=== PATIENT | male | born 1980 | race Hispanic/Latino ===

== ENCOUNTER 2020-11-13 07:49 | Inpatient (IN) | payer OTHER, SELFPAY ==
--- NOTE | 2020-11-13 09:59 | Event Note ---
ED Screening Note ED Screening Note: N/V CANT KEEP PO DOWN DARK STOOLS FEVER/CHILLS ABD LLQ TO L FLANK NO DYSURIA RECENT COUGH RX NONE PMH NONE PSH NONE CIG OCC ETOH NO DRUGS PCP NONE This initial assessment/diagnostic orders/clinical plan/treatment(s) is/are subject to change based on patients health status, clinical progression and re- assessment by fellow clinical providers in the ED. Further treatment and workup at subsequent clinical providers discretion. Patient/guardian urged not to elope from the ED as their condition may be serious if not clinically assessed and managed. Initial orders include: LABS UA
[2020-11-13 10:55] LABS: Basophils % (Auto) 0.1 % (0.0-1.8); Hematocrit 46.5 % (35.5-45.6); Hemoglobin 16.1 gm/dl (11.8-15.2); Lymphocytes # (Auto) 1.2 K/mm3 (1.2-5.4); Lymphocytes % (Auto) 8.1 % (13.4-35.0); Mean Corpuscular HGB Conc 35 % (32-34); Mean Corpuscular Volume 87 fl (84-94); Monocytes # (Auto) 1.3 K/mm3 (0.0-0.8); Monocytes % (Auto) 8.6 % (0.0-7.3); Platelet Count 345 K/mm3 (140-440); Red Blood Count 5.36 M/mm3 (3.65-5.03); Red Cell Distribution Width 14.1 % (13.2-15.2)
[2020-11-13 11:13] LABS: Alanine Aminotransferase 11 units/L (7-56); Albumin 4.4 g/dL (3.9-5); BUN/Creatinine Ratio 21; Blood Urea Nitrogen 17 mg/dL (9-20); Hemolysis Index 11
[2020-11-13] MEDS ORDERED: MORPHINE 4 MG/1 ML INJ IV ONE (12:02)
[2020-11-13] MEDS ORDERED: ONDANSETRON 4 MG/2 ML INJ IV ONE (12:02)
[2020-11-13] MEDS ORDERED: SODIUM CHLORIDE 0.9% 1000 ML 1,000 ML IV ONE (12:02)
--- NOTE | 2020-11-13 12:08 | Emergency Department Report ---
ED Abdominal Pain HPI - General Chief Complaint: Nausea/Vomiting/Diarrhea Stated Complaint: ABD PAINS VOMITING PUI?: No Time Seen by Provider: 11/13/20 09:58 Source: patient, RN notes reviewed Mode of arrival: Ambulatory Limitations: No Limitations - History of Present Illness Initial Comments: The patient was evaluated in the emergency department for symptoms described in the history of present illness. He/she was evaluated in the context of the global COVID-19 pandemic, which necessitated consideration that the patient mi ght be at risk for infection with the virus that causes COVID-19. Institutional protocols and algorithms that pertain to the evaluation of patients at risk for COVID-19 are in a state of rapid change based on information released by regulatory bodies including the CDC and federal and state organizations. These policies and algorithms were followed during the patient's care in the emergency department. Please note that these policies, procedures and recommendations changed on a rapid basis. During the history and physical examination, I am chaperoned by Mr. Paddy Freitas, range manager. The patient is a 40-year-old gentleman who is not known to myself previously, presenting to the ER today with a complaint of lower abdominal pain, that radiates up to the left upper quadrant. There is nausea vomiting and dark brown stool. No urinary symptoms or testicular pain. There is also right lower quadrant pain. No headache, neck pain, chest pain. He has never had symptoms like this before. No loss of taste or smell. Has not received Covid vaccination. Denies chronic medical conditions. States no history of abdominal surgeries. Pain today is sharp, throbbing and aching, increases with palpation, decreases with rest. MD Complaint: abdominal pain -: Gradual, hour(s) Location: LLQ, RLQ Radiation: LUQ Severity scale (0 -10): 8 Quality: cramping, aching Consistency: constant Improves With: medication, rest Worsens With: movement Associated Symptoms: nausea, vomiting, chills - Related Data Allergies Allergy/AdvReac Type Severity Reaction Status Date / Time No Known Allergies Allergy Unverified 11/13/20 08:22 ED Review of Systems ROS: Stated complaint: ABD PAINS VOMITING Other details as noted in HPI Constitutional: chills, fever, malaise, weakness Eyes: denies: eye discharge ENT: denies: epistaxis Respiratory: denies: cough Cardiovascular: denies: chest pain Gastrointestinal: abdominal pain, nausea, vomiting. denies: hematemesis, melena, hematochezia Genitourinary: denies: urgency, dysuria, testicular pain Musculoskeletal: denies: back pain Neurological: weakness Hematological/Lymphatic: denies: easy bleeding ED Past Medical Hx - Past Medical History Previous Medical History?: No - Surgical History Past Surgical History?: No ED Physical Exam - General Limitations: No Limitations General appearance: alert, in no apparent distress - Head Head exam: Present: atraumatic, normocephalic - Eye Eye exam: Present: normal appearance, EOMI. Absent: nystagmus - ENT ENT exam: Present: normal exam, normal orophraynx, mucous membranes moist, normal external ear exam - Neck Neck exam: Present: normal inspection, full ROM. Absent: tenderness, meningismus - Respiratory Respiratory exam: Present: normal lung sounds bilaterally. Absent: respiratory distress, wheezes, rales, rhonchi, stridor - Cardiovascular Cardiovascular Exam: Present: regular rate, normal rhythm, normal heart sounds. Absent: bradycardia, tachycardia, irregular rhythm, systolic murmur, diastolic murmur, rubs, gallop - GI/Abdominal GI/Abdominal exam: Present: soft, tenderness, guarding. Absent: distended, rebound, rigid, pulsatile mass - Rectal Rectal exam: Present: normal inspection, heme (-) stool. Absent: black stool, bloody stool - exam: Present: normal inspection, other (There is normal testicular lie. There is normal cremasteric reflex. There is no testicular tenderness. There is no testicular swelling). Absent: testicular tenderness External exam: Present: normal external exam. Absent: erythema, swelling - Extremities Exam Extremities exam: Present: normal inspection, full ROM, other (2+ pulses noted in the bilateral upper and lower extremities. There is no palpable cord. negative Homans sign. Muscular compartments are soft. The pelvis is stable.). Absent: tenderness, pedal edema, joint swelling, calf tenderness - Back Exam Back exam: Present: normal inspection, full ROM. Absent: tenderness, CVA tenderness (R), CVA tenderness (L), paraspinal tenderness, vertebral tenderness - Neurological Exam Neurological exam: Present: alert, oriented X3, normal gait, other (No facial dr oop. Tongue midline. Extraocular movements intact bilaterally. Facial sensation intact to light touch in V1, V2, V3 distribution bilaterally. 5 and a 5 strength in 4 extremities. Sensation intact to light touch in 4 extremities.). Absent: motor sensory deficit - Psychiatric Psychiatric exam: Present: anxious - Skin Skin exam: Present: warm, dry, intact, normal color. Absent: rash ED Course Vital Signs 11/13/20 11/13/20 11/13/20 08:23 12:08 12:15 Temperature 98.6 F Pulse Rate 91 H 85 80 Respiratory 18 19 19 Rate Blood Pressure 122/72 Blood Pressure 116/88 [Right] O2 Sat by Pulse 97 99 95 Oximetry 11/13/20 11/13/20 11/13/20 12:31 12:47 13:01 Temperature Pulse Rate 88 90 76 Respiratory 17 18 19 Rate Blood Pressure 121/78 127/73 115/70 Blood Pressure [Right] O2 Sat by Pulse 97 96 96 Oximetry 11/13/20 13:15 Temperature Pulse Rate 73 Respiratory 15 Rate Blood Pressure 109/48 Blood Pressure [Right] O2 Sat by Pulse 97 Oximetry - Reevaluation(s) Reevaluation #1: 11/13/20 12:07 Differential diagnosis, including but not limited to: Appendicitis, colitis, diverticulitis, renal colic, obstruction, perforated viscus Assessment and plan: 40-year-old gentleman, with diffuse abdominal pain, tenderness, nausea, vomiting, normal testicular exam, no blood on rectal examination, leukocytosis, who is hemoconcentrated. Concerning for intra- abdominal pathology. Urinalysis and EKG pending. CT scan abdomen pelvis ordered. EKG ordered. We will treat the patient's pain and nausea. Reassess after diagnostic imaging. Patient is in agreement with plan of care. Reevaluation #2: 11/13/20 13:40 Patient feels improved. Declines additional pain medication at this time. CT scan abdomen pelvis suggest small bowel obstruction, and probable colonic cancer. Contacted gastroenterology on-call, Dr. Anne. Discussed patient's history, physical, laboratory studies and imaging studies. His group is amenable to following consultation. We have placed a page out to general surgery. Reassess after discussion with surgery. 11/13/20 14:21 Discussed patient's history, physical, laboratory studies and imaging studies with general surgeon on-call, Dr. Ahmadi Her group will follow in consultation. Recommends nasogastric tube. I then had extensive discussion with the patient at the bedside. I discussed the significance of his CT scan findings, as well as recommended treatment and plan of care, including recommendation for nasogastric tube insertion. Patient is agreeable to this plan of care. He requested I discussed the details of his care with his fiance. He gave full permission to have the details of all of his medical care disclosed and discussed with his fiance. Hospital physician, Dr. Gary Alvarenga to admit to [facility] ED Medical Decision Making - Lab Data Result diagrams: 11/13/20 10:24 11/13/20 10:24 Vital Signs 11/13/20 08:23 Temperature 98.6 F Pulse Rate 91 H Respiratory 18 Rate Blood Pressure 116/88 [Right] O2 Sat by Pulse 97 Oximetry Lab Results 11/13/20 11/13/20 Range/Units 10:24 10:24 WBC 14.6 H (4.5-11.0) K/mm3 RBC 5.36 H (3.65-5.03) M/mm3 Hgb 16.1 H (11.8-15.2) gm/dl Hct 46.5 H (35.5-45.6) % MCV 87 (84-94) fl MCH 30 (28-32) pg MCHC 35 H (32-34) % RDW 14.1 (13.2-15.2) % Plt Count 345 (140-440) K/mm3 Lymph % (Auto) 8.1 L (13.4-35.0) % [place] % (Auto) 8.6 H (0.0-7.3) % Eos % (Auto) 0.0 (0.0-4.3) % Baso % (Auto) 0.1 (0.0-1.8) % Lymph # (Auto) 1.2 (1.2-5.4) K/mm3 [place] # (Auto) 1.3 H (0.0-0.8) K/mm3 Eos # (Auto) 0.0 (0.0-0.4) K/mm3 Baso # (Auto) 0.0 (0.0-0.1) K/mm3 Seg Neutrophils % 83.2 H (40.0-70.0) % Seg Neutrophils # 12.2 H (1.8-7.7) K/mm3 Sodium 136 L (137-145) mmol/L Potassium 4.1 (3.6-5.0) mmol/L Chloride 98.6 (98-107) mmol/L Carbon Dioxide 23 (22-30) mmol/L Anion Gap 19 mmol/L BUN 17 (9-20) mg/dL Creatinine 0.8 (0.8-1.3) mg/dL Estimated GFR > 60 ml/min BUN/Creatinine Ratio 21 % Glucose 113 H (75-100) mg/dL Calcium 9.0 (8.4-10.2) mg/dL Total Bilirubin 0.40 (0.1-1.2) mg/dL AST 14 (5-40) units/L ALT 11 (7-56) units/L Alkaline Phosphatase 74 (35-129) units/L Total Protein 8.4 H (6.3-8.2) g/dL Albumin 4.4 (3.9-5) g/dL Albumin/Globulin Ratio 1.1 % Lipase 19 (13-60) units/L - EKG Data -: EKG Interpreted by Ok EKG shows normal: sinus rhythm Rate: normal - EKG Data When compared to previous EKG there are: previous EKG unavailable 11/13/20 12:23 EKG interpreted at 12: 18 Sinus rhythm, 78 bpm. Normal axis, normal intervals. Minimal motion artifact. This EKG is not a STEMI. There is no prior for comparison. - Radiology Data Radiology results: pending, report reviewed, image reviewed CT ABDOMEN AND PELVIS WITH CONTRAST HISTORY: MAIN. Acute lower abdominal pain with nausea and vomiting COMPARISON: None. TECHNIQUE: CT images of the abdomen and pelvis were obtained following administration of intravenous contrast. All CT scans at this location are performed using CT dose reduction for ALARA by means of automated exposure control. CONTRAST: 100 ml of intravenous contrast administered. FINDINGS: Lungs/bones: Lung bases are clear. There are degenerative changes in the spine and pelvis with no acute osseous abnormality identified. Abdomen/pelvis: The liver, gallbladder, spleen, pancreas, adrenals, kidneys, and proximal GI tract appear unremarkable. Urinary bladder and prostate are normal. No pelvic free fluid. There is a large mass in the region of the splenic flexure of the colon which measures at least approximately 7 cm in length and at least 5 cm in maximal transverse dimension. There are several surrounding enlarged regional lymph nodes as well. The upstream colon is dilated and fluid-filled as is the distal small bowel and this is likely causing an obstructive effect. IMPRESSION: 1. Large mass in the colon near the level of the splenic flexure highly worrisome for colorectal carcinoma, with surrounding mesenteric lymph nodes worrisome for metastatic disease. There is also a mild obstructive effect on the upstream colon and distal small bowel. Signer Name: Arsenio Mosquera MD Signed: 11/13/2020 12:06 PM Workstation Name: [id number] Critical Care Time: Yes Critical care time in (mins) excluding proc time.: 35 Critical care attestation.: If time is entered above; I have spent that time in minutes in the direct care of this critically ill patient, excluding procedure time. ED Disposition Clinical Impression: Acute abdominal pain, Nausea and vomiting, Small bowel obstruction, Colonic mass Disposition: OP ADMIT IP TO THIS HOSP Is pt being admited?: Yes Does the pt Need Aspirin: No Condition: Serious Referrals: PRIMARY CARE, [Primary Care Provider] - 3-5 Days
[2020-11-13 13:07] LABS: Bilirubin,Urine NEG (Negative); Blood,Urine NEG (Negative); Color,Urine Yellow (Yellow); Mucus,Urine 2+ /HPF; Protein,Urine <15 mg/dL mg/dL (Negative); Urobilinogen,Urine < 2.0 mg/dL (<2.0)
--- NOTE | 2020-11-13 13:10 | Cat Scan Report ---
CT ABDOMEN AND PELVIS WITH CONTRAST HISTORY: MAIN. Acute lower abdominal pain with nausea and vomiting COMPARISON: None. TECHNIQUE: CT images of the abdomen and pelvis were obtained following administration of intravenous contrast. All CT scans at this location are performed using CT dose reduction for ALARA by means of automated exposure control. CONTRAST: 100 ml of intravenous contrast administered. FINDINGS: Lungs/bones: Lung bases are clear. There are degenerative changes in the spine and pelvis with no ac [place] osseous abnormality identified. Abdomen/pelvis: The liver, gallbladder, spleen, pancreas, adrenals, kidneys, and proximal GI tract a ppear unremarkable. Urinary bladder and prostate are normal. No pelvic free fluid. There is a large mass in the region of the splenic flexure of the colon which measures at least appro ximately 7 cm in length and at least 5 cm in maximal transverse dimension. There are several surround ing enlarged regional lymph nodes as well. The upstream colon is dilated and fluid-filled as is the d istal small bowel and this is likely causing an obstructive effect. IMPRESSION: 1. Large mass in the colon near the level of the splenic flexure highly worrisome for colorectal carc inoma, with surrounding mesenteric lymph nodes worrisome for metastatic disease. There is also a mild obstructive effect on the upstream colon and distal small bowel. Signer Name: Arsenio Mosquera MD Signed: 11/13/2020 1:06 PM Workstation Name: [id number]
[2020-11-13] MEDS ORDERED: HYDROmorphone 1 MG/1 ML INJ IV ONE ×2 (14:04→15:32)
[2020-11-13] MEDS ORDERED: LIDOCAINE VISCOUS 2% 15 ML ORAL LIQD MM STA (14:19)
[2020-11-13] MEDS ORDERED: LIDOCAINE VISCOUS 2% 15 ML ORAL LIQD PO ONE (16:17)
--- NOTE | 2020-11-13 17:27 | Event Note ---
Date: 11/13/[address] Clifford for consult. Discussed case with Dr. Clifford, labs and imaging reviewed. VSS. Patient with splenic flexure mass worrisome for colon cancer with partial bowel obstruction. 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 Patient admitted to hospitalist group with consultation to GI. 1. Pt will need to remain NPO on IVF. 2. Patient will need NGT if starts to vomit. Per Rn notes he was unable to tolerate NGT insertion and is not vomiting. 3. obtain CEA 4. Repeat labs in am 5. DVT/GI ppx 6. prn and nausea control 7. CXR to r/o lung mets 8. GI consulted Full consult to follow in am
[2020-11-13] MEDS ORDERED: ONDANSETRON 4 MG/2 ML INJ ONE (18:39)
[2020-11-13] MEDS ORDERED: ONDANSETRON 4 MG/2 ML INJ IV PRN ×2 (18:40→22:44)
--- NOTE | 2020-11-13 18:40 | XRay Report ---
CHEST 1 VIEW INDICATION: colon mass, r/o mets. COMPARISON: None. FINDINGS: Support devices: None. Heart: Normal. Lungs/Pleura: No acute pulmonary or pleural findings. IMPRESSION: 1. No acute findings. Signer Name: Terrell Shah MD Signed: 11/13/2020 6:35 PM Workstation Name: [id number]
[2020-11-13] MEDS: MORPHINE 2 MG/1 ML INJ IV PRN (18:47)
[2020-11-13] MEDS: HYDROmorphone 1 MG/1 ML INJ IV PRN (19:43)
--- NOTE | 2020-11-13 22:37 | History and Physical Report ---
History of Present Illness Date of examination: 11/13/20 Date of admission: 11/13/20 19:20 Chief complaint: Lower abdominal pain for 3 to 4 days History of present illness: 40-year-old -[place] male with no significant past medical history comes in for lower abdominal pain radiating to the left upper quadrant. Pain is intermittent in nature. Colicky pain. Associated with nausea and vomiting. No vomiting since morning. Patient never had colonoscopy. No family history of colon cancer. Oral intake is an exacerbating factor. No fever or chills. No exposure to coronavirus. - Past Medical History Previous Medical History?: No - Surgical History Past Surgical History?: No --Family history Htn --Social history half a pack smoker Review of Systems ROS: Stated complaint: ABD PAINS VOMITING Other details as noted in HPI Constitutional: chills, fever, malaise, weakness Eyes: denies: eye discharge ENT: denies: epistaxis Respiratory: denies: cough Cardiovascular: denies: chest pain Gastrointestinal: abdominal pain, nausea, vomiting. denies: hematemesis, melena, hematochezia Genitourinary: denies: urgency, dysuria, testicular pain Musculoskeletal: denies: back pain Neurological: weakness Hematological/Lymphatic: denies: easy bleeding Medications and Allergies Allergies Allergy/AdvReac Type Severity Reaction Status Date / Time No Known Allergies Allergy Unverified 11/13/20 08:22 Active Meds: Active Medications Hydromorphone HCl (Hydromorphone 1 Mg/1 Ml Inj) 0.5 mg IV Q3H PRN PRN Reason: Pain , Severe (7-10) Morphine Sulfate (Morphine 2 Mg/1 Ml Inj) 2 mg IV Q4H PRN PRN Reason: Pain, Moderate (4-6) Last Admin: 11/13/20 18:47 Dose: 2 mg Documented by: Ondansetron HCl (Ondansetron 4 Mg/2 Ml Inj) 4 mg IV ONCE PRN PRN Reason: Nausea And Vomiting Stop: 11/20/20 18:39 Last Admin: 11/13/20 18:47 Dose: 4 mg Documented by: Exam - Constitutional Vitals: Temp Pulse Resp BP Pulse Ox 99.9 F H 88 18 116/63 92 11/13/20 21:26 11/13/20 21:26 11/13/20 21:26 11/13/20 21:26 11/13/20 21:26 General appearance: Present: no acute distress, well-nourished - EENT Eyes: Present: PERRL ENT: hearing intact, clear oral mucosa - Neck Neck: Present: supple, normal ROM - Respiratory Respiratory effort: normal Respiratory: bilateral: CTA - Cardiovascular Heart rate: 78 Rhythm: regular Heart Sounds: Present: S1 & S2. Absent: rub, click - Extremities Extremities: pulses symmetrical, No edema Peripheral Pulses: within normal limits - Abdominal General gastrointestinal: Present: soft, tender, non-distended, normal bowel sounds Localized gastrointestinal: tender: suprapubic, midline, guarding: suprapubic, midline Male genitourinary: Present: normal - Rectal Rectal Exam: stool brown - Integumentary Integumentary: Present: clear, warm, dry - Musculoskeletal Musculoskeletal: gait normal, strength equal bilaterally - Psychiatric Psychiatric: appropriate mood/affect, intact judgment & insight - Neurologic Neurologic: CNII-XII intact, moves all extremities - Allied Health Allied health notes reviewed: nursing, case management Results - Labs CBC & Chem 7: 11/13/20 10:24 11/13/20 10:24 Labs: Laboratory Last Values WBC 14.6 K/mm3 (4.5-11.0) H 11/13/20 10:24 RBC 5.36 M/mm3 (3.65-5.03) H 11/13/20 10:24 Hgb 16.1 gm/dl (11.8-15.2) H 11/13/20 10:24 Hct 46.5 % (35.5-45.6) H 11/13/20 10:24 MCV 87 fl (84-94) 11/13/20 10:24 MCH 30 pg (28-32) 11/13/20 10:24 MCHC 35 % (32-34) H 11/13/20 10:24 RDW 14.1 % (13.2-15.2) 11/13/20 10:24 Plt Count 345 K/mm3 (140-440) 11/13/20 10:24 Lymph % (Auto) 8.1 % (13.4-35.0) L 11/13/20 10:24 [place] % (Auto) 8.6 % (0.0-7.3) H 11/13/20 10:24 Eos % (Auto) 0.0 % (0.0-4.3) 11/13/20 10:24 Baso % (Auto) 0.1 % (0.0-1.8) 11/13/20 10:24 Lymph # (Auto) 1.2 K/mm3 (1.2-5.4) 11/13/20 10:24 [place] # (Auto) 1.3 K/mm3 (0.0-0.8) H 11/13/20 10:24 Eos # (Auto) 0.0 K/mm3 (0.0-0.4) 11/13/20 10:24 Baso # (Auto) 0.0 K/mm3 (0.0-0.1) 11/13/20 10:24 Seg Neutrophils % 83.2 % (40.0-70.0) H 11/13/20 10:24 Seg Neutrophils # 12.2 K/mm3 (1.8-7.7) H 11/13/20 10:24 Sodium 136 mmol/L (137-145) L 11/13/20 10:24 Potassium 4.1 mmol/L (3.6-5.0) 11/13/20 10:24 Chloride 98.6 mmol/L (98-107) 11/13/20 10:24 Carbon Dioxide 23 mmol/L (22-30) 11/13/20 10:24 Anion Gap 19 mmol/L 11/13/20 10:24 BUN 17 mg/dL (9-20) 11/13/20 10:24 Creatinine 0.8 mg/dL (0.8-1.3) 11/13/20 10:24 Estimated GFR > 60 ml/min 11/13/20 10:24 BUN/Creatinine Ratio 21 % 11/13/20 10:24 Glucose 113 mg/dL (75-100) H 11/13/20 10:24 Calcium 9.0 mg/dL (8.4-10.2) 11/13/20 10:24 Magnesium 2.30 mg/dL (1.7-2.3) 11/13/20 15:45 Total Bilirubin 0.40 mg/dL (0.1-1.2) 11/13/20 10:24 AST 14 units/L (5-40) 11/13/20 10:24 ALT 11 units/L (7-56) 11/13/20 10:24 Alkaline Phosphatase 74 units/L (35-129) 11/13/20 10:24 Total Creatine Kinase 60 units/L (55-170) 11/13/20 15:45 Total Protein 8.4 g/dL (6.3-8.2) H 11/13/20 10:24 Albumin 4.4 g/dL (3.9-5) 11/13/20 10:24 Albumin/Globulin Ratio 1.1 % 11/13/20 10:24 Lipase 19 units/L (13-60) 11/13/20 10:24 Urine Color Yellow (Yellow) 11/13/20 12:57 Urine Turbidity Clear (Clear) 11/13/20 12:57 Urine pH 5.0 (5.0-7.0) 11/13/20 12:57 Ur Specific [place] 1.041 (1.003-1.030) H 11/13/20 12:57 Urine Protein <15 mg/dl mg/dL (Negative) 11/13/20 12:57 Urine Glucose (UA) Neg mg/dL (Negative) 11/13/20 12:57 Urine Ketones Tr mg/dL (Negative) 11/13/20 12:57 Urine Blood Neg (Negative) 11/13/20 12:57 Urine Nitrite Neg (Negative) 11/13/20 12:57 Urine Bilirubin Neg (Negative) 11/13/20 12:57 Urine Urobilinogen < 2.0 mg/dL (<2.0) 11/13/20 12:57 Ur Leukocyte Esterase Neg (Negative) 11/13/20 12:57 Urine WBC (Auto) 1.0 /HPF (0.0-6.0) 11/13/20 12:57 Urine RBC (Auto) 2.0 /HPF (0.0-6.0) 11/13/20 12:57 U Epithel Cells (Auto) < 1.0 /HPF (0-13.0) 11/13/20 12:57 Urine Mucus 2+ /HPF 11/13/20 12:57 - Imaging and Cardiology CT scan - abdomen: report reviewed Imaging and Cardiology: abdominal CAT scan There is a large mass in the renal splenic flexure of the colon which measures at least approximately 7 cm in length and at least 5 cm in maximal transverse dimension. There are several surrounding enlarged regional lymph nodes as well. The upstream colon is dilated and fluid-filled as is the distal small bowel and this is likely causing an obstructive defect. Large mass in the colon near the level of splenic fissure highly worrisome for colorectal carcinoma with surrounding mesenteric lymph nodes worrisome for metastatic disease. There is also a mild obstructive defect in the upstream colon and distal small bowel. June/IV: Voiding Method Urinal Assessment and Plan Advance Directives: Yes VTE prophylaxis?: Chemical Plan of care discussed with patient/family: Yes - Patient Problems (1) Small bowel obstruction Current Visit: Yes Status: Acute Plan to address problem: NG tube for now. Patient is refusing Patient is not actively vomiting (2) Colonic mass Current Visit: Yes Status: Acute Plan to address problem: Newly diagnosed colon mass in the splenic flexure with spread to lymph nodes Needs urgent colonoscopy and biopsies. May need colectomy and end-to-end anastomosis because of the obstructive symptoms Surgery and GI consulted (3) Volume depletion Current Visit: Yes Status: Acute Plan to address problem: IV fluids for now (4) Polycythemia due to fall in plasma volume Current Visit: Yes Status: Acute Plan to address problem: IV fluids for now (5) Hyponatremia Current Visit: Yes Status: Acute Plan to address problem: Mild IV normal saline for now (6) DVT prophylaxis Current Visit: Yes Status: Acute Plan to address problem: On heparin and GI prophylaxis
[2020-11-13] MEDS ORDERED: ACETAMINOPHEN 325 MG TAB PO PRN (22:44)
[2020-11-13] MEDS: D5W/0.9% NACL 1,000 ML IV SCH (23:10)
[2020-11-13] MEDS: FAMOTIDINE 20 MG/2 ML INJ IV SCH (23:10)
[2020-11-14 05:23] LABS: Basophils % (Auto) 0.4 % (0.0-1.8); Eosinophils # (Auto) 0.1 K/mm3 (0.0-0.4); Eosinophils % (Auto) 1.1 % (0.0-4.3); Hematocrit 39.9 % (35.5-45.6); Hemoglobin 13.8 gm/dl (11.8-15.2); Lymphocytes # (Auto) 1.6 K/mm3 (1.2-5.4); Mean Corpuscular HGB Conc 35 % (32-34); Mean Corpuscular Volume 87 fl (84-94); Monocytes # (Auto) 0.8 K/mm3 (0.0-0.8); Monocytes % (Auto) 12.1 % (0.0-7.3); Platelet Count 233 K/mm3 (140-440); Red Blood Count 4.57 M/mm3 (3.65-5.03)
[2020-11-14 05:46] LABS: BUN/Creatinine Ratio 19; Blood Urea Nitrogen 15 mg/dL (9-20); Calcium 7.9 mg/dL (8.4-10.2); Hemolysis Index 3
[2020-11-14] MEDS: D5W/0.9% NACL 1,000 ML IV SCH ×2 (07:47→17:31)
[2020-11-14] MEDS: FAMOTIDINE 20 MG/2 ML INJ IV SCH ×2 (07:47→22:00)
--- NOTE | 2020-11-14 09:48 | Progress Note ---
Assessment and Plan Assessment and plan: #Partial SBO N.p.o. for now Continue IV hydration Surgery evaluation #Colonic mass CT abdomen shows mass around the splenic flexure with some lymph node spread Denies any family history of colon cancer Surgery following GI consulted Plan for colonoscopy per surgery and GI CEA sent #Polycythemia Due to fall in plasma volume IV hydration #Hyponatremia IV normal saline for now #DVT prophylaxis-Heparin History Interval history: 11/14. Patient seen and examined at bedside this morning. Still has some abdominal pain. No vomiting overnight. He is passing flatus. Surgery following. Hospitalist Physical - Physical exam Narrative exam: VITAL SIGNS: Reviewed. GENERAL: Awake HEAD: No signs of head trauma. EYES: Pupils are equal. Extraocular motions intact. MOUTH: Oropharynx is normal. NECK: No adenopathy, no JVD. CHEST: Chest with diminished breath sounds bilaterally. No wheezes, rales, or rhonchi. CARDIAC: normal S1 and S2, without murmurs, gallops, or rubs. ABDOMEN: Soft, slight discomfort around the umbilical area MUSCULOSKELETAL: No edema NEUROLOGIC EXAM: Alert and oriented x3. No focal neurologic deficits SKIN: No obvious lesions - Constitutional Vitals: Temp Pulse Resp BP Pulse Ox 98.6 F 71 18 126/61 93 11/14/20 07:27 11/14/20 07:27 11/14/20 07:27 11/14/20 07:27 11/14/20 07:27 Results - Labs CBC & Chem 7: 11/14/20 04:45 11/14/20 04:45 Labs: Laboratory Last Values WBC 6.5 K/mm3 (4.5-11.0) 11/14/20 04:45 RBC 4.57 M/mm3 (3.65-5.03) 11/14/20 04:45 Hgb 13.8 gm/dl (11.8-15.2) 11/14/20 04:45 Hct 39.9 % (35.5-45.6) D 11/14/20 04:45 MCV 87 fl (84-94) 11/14/20 04:45 MCH 30 pg (28-32) 11/14/20 04:45 MCHC 35 % (32-34) H 11/14/20 04:45 RDW 14.0 % (13.2-15.2) 11/14/20 04:45 Plt Count 233 K/mm3 (140-440) 11/14/20 04:45 Lymph % (Auto) 24.0 % (13.4-35.0) 11/14/20 04:45 [place] % (Auto) 12.1 % (0.0-7.3) H 11/14/20 04:45 Eos % (Auto) 1.1 % (0.0-4.3) 11/14/20 04:45 Baso % (Auto) 0.4 % (0.0-1.8) 11/14/20 04:45 Lymph # (Auto) 1.6 K/mm3 (1.2-5.4) 11/14/20 04:45 [place] # (Auto) 0.8 K/mm3 (0.0-0.8) 11/14/20 04:45 Eos # (Auto) 0.1 K/mm3 (0.0-0.4) 11/14/20 04:45 Baso # (Auto) 0.0 K/mm3 (0.0-0.1) 11/14/20 04:45 Seg Neutrophils % 62.4 % (40.0-70.0) 11/14/20 04:45 Seg Neutrophils # 4.0 K/mm3 (1.8-7.7) 11/14/20 04:45 Sodium 138 mmol/L (137-145) 11/14/20 04:45 Potassium 3.6 mmol/L (3.6-5.0) 11/14/20 04:45 Chloride 103.0 mmol/L (98-107) 11/14/20 04:45 Carbon Dioxide 26 mmol/L (22-30) 11/14/20 04:45 Anion Gap 13 mmol/L 11/14/20 04:45 BUN 15 mg/dL (9-20) 11/14/20 04:45 Creatinine 0.8 mg/dL (0.8-1.3) 11/14/20 04:45 Estimated GFR > 60 ml/min 11/14/20 04:45 BUN/Creatinine Ratio 19 % 11/14/20 04:45 Glucose 98 mg/dL (75-100) 11/14/20 04:45 Hemoglobin A1c 5.1 % (4-6) 11/14/20 04:45 Calcium 7.9 mg/dL (8.4-10.2) L 11/14/20 04:45 Magnesium 2.30 mg/dL (1.7-2.3) 11/13/20 15:45 Total Bilirubin 0.40 mg/dL (0.1-1.2) 11/13/20 10:24 AST 14 units/L (5-40) 11/13/20 10:24 ALT 11 units/L (7-56) 11/13/20 10:24 Alkaline Phosphatase 74 units/L (35-129) 11/13/20 10:24 Total Creatine Kinase 60 units/L (55-170) 11/13/20 15:45 Total Protein 8.4 g/dL (6.3-8.2) H 11/13/20 10:24 Albumin 4.4 g/dL (3.9-5) 11/13/20 10:24 Albumin/Globulin Ratio 1.1 % 11/13/20 10:24 Lipase 19 units/L (13-60) 11/13/20 10:24 Urine Color Yellow (Yellow) 11/13/20 12:57 Urine Turbidity Clear (Clear) 11/13/20 12:57 Urine pH 5.0 (5.0-7.0) 11/13/20 12:57 Ur Specific [place] 1.041 (1.003-1.030) H 11/13/20 12:57 Urine Protein <15 mg/dl mg/dL (Negative) 11/13/20 12:57 Urine Glucose (UA) Neg mg/dL (Negative) 11/13/20 12:57 Urine Ketones Tr mg/dL (Negative) 11/13/20 12:57 Urine Blood Neg (Negative) 11/13/20 12:57 Urine Nitrite Neg (Negative) 11/13/20 12:57 Urine Bilirubin Neg (Negative) 11/13/20 12:57 Urine Urobilinogen < 2.0 mg/dL (<2.0) 11/13/20 12:57 Ur Leukocyte Esterase Neg (Negative) 11/13/20 12:57 Urine WBC (Auto) 1.0 /HPF (0.0-6.0) 11/13/20 12:57 Urine RBC (Auto) 2.0 /HPF (0.0-6.0) 11/13/20 12:57 U Epithel Cells (Auto) < 1.0 /HPF (0-13.0) 11/13/20 12:57 Urine Mucus 2+ /HPF 11/13/20 12:57 June/IV: Voiding Method Urinal Active Medications - Current Medications Current Medications: Generic Name Dose Route Start Last Admin Trade Name Freq PRN Reason Stop Dose Admin Acetaminophen 650 mg 11/13/20 22:44 Acetaminophen 325 Mg Tab PO Q4H PRN Pain MILD(1-3)/Fever >100.5/[place] Enoxaparin Sodium 40 mg 11/14/20 22:00 Enoxaparin 40 Mg/0.4 Ml Inj SUB-Q QDAY@2200 ION Protocol Famotidine 20 mg 11/13/20 23:00 11/14/20 07:47 Famotidine 20 Mg/2 Ml Inj IV 20 mg BID ION Administration Hydromorphone HCl 0.5 mg 11/13/20 19:26 11/13/20 19:43 Hydromorphone 1 Mg/1 Ml Inj IV 0.5 mg Q3H PRN Administration Pain , Severe (7-10) Dextrose/Sodium Chloride 1,000 mls @ 100 mls/hr 11/13/20 23:00 11/14/20 07:47 D5ns IV 100 mls/hr DIRECT ION Administration Morphine Sulfate 2 mg 11/13/20 18:38 11/13/20 18:47 Morphine 2 Mg/1 Ml Inj IV 2 mg Q4H PRN Administration Pain, Moderate (4-6) Ondansetron HCl 4 mg 11/13/20 22:44 Ondansetron 4 Mg/2 Ml Inj IV Q8H PRN Nausea And Vomiting Sodium Chloride 10 ml 11/14/20 08:00 11/14/20 07:53 Sodium Chloride 0.9% 10 Ml Flush Syringe IV 10 ml BID ION Administration Sodium Chloride 10 ml 11/13/20 22:44 11/13/20 23:10 Sodium Chloride 0.9% 10 Ml Flush Syringe IV 10 ml PRN PRN Administration LINE FLUSH
--- NOTE | 2020-11-14 12:48 | Gastroenterology Consultation ---
History of Present Illness - Reason for Consult Consult date: 11/14/20 colon mass Requesting physician: VALERIE MAGAÑA - History of Present Illness The patient is a 40 yo male with no significant medical history who presents with recent onset abd pain, n/v, and bowel habit changes. Pt reports initially having constipation 4 days ago. He tried a laxative with minimal response. He attempted to eat 3 days ago but developed n/v episodes and was unable to tolerate further po intake. Abd pain primarily in left side of abdomen. Pt had CT scan in ED which showed a large colon mass at the splenic flexure causing partial obstruction. He reports ~20 lb weight loss in the past year which he attributes to dietary changes. Denies similar gi symptoms in the past. Denies gi bleeding. + fevers/chills in the past week. No known family h/o colon cancer. Past History Past Medical History: No medical history Past Surgical History: No surgical history Social history: no significant social history Medications and Allergies Allergies Allergy/AdvReac Type Severity Reaction Status Date / Time No Known Allergies Allergy Unverified 11/13/20 08:22 Active Meds: Active Medications Acetaminophen (Acetaminophen 325 Mg Tab) 650 mg PO Q4H PRN PRN Reason: Pain MILD(1-3)/Fever >100.5/[place] Last Admin: 11/14/20 11:48 Dose: 650 mg Documented by: Enoxaparin Sodium (Enoxaparin 40 Mg/0.4 Ml Inj) 40 mg SUB-Q QDAY@2200 ION; Protocol Famotidine (Famotidine 20 Mg/2 Ml Inj) 20 mg IV BID [facility] Last Admin: 11/14/20 07:47 Dose: 20 mg Documented by: Hydromorphone HCl (Hydromorphone 1 Mg/1 Ml Inj) 0.5 mg IV Q3H PRN PRN Reason: Pain , Severe (7-10) Last Admin: 11/13/20 19:43 Dose: 0.5 mg Documented by: Dextrose/Sodium Chloride (D5ns) 1,000 mls @ 100 mls/hr IV DIRECT ION Last Admin: 11/14/20 07:47 Dose: 100 mls/hr Documented by: Morphine Sulfate (Morphine 2 Mg/1 Ml Inj) 2 mg IV Q4H PRN PRN Reason: Pain, Moderate (4-6) Last Admin: 11/13/20 18:47 Dose: 2 mg Documented by: Ondansetron HCl (Ondansetron 4 Mg/2 Ml Inj) 4 mg IV Q8H PRN PRN Reason: Nausea And Vomiting Sodium Chloride (Sodium Chloride 0.9% 10 Ml Flush Syringe) 10 ml IV BID ION Last Admin: 11/14/20 07:53 Dose: 10 ml Documented by: Sodium Chloride (Sodium Chloride 0.9% 10 Ml Flush Syringe) 10 ml IV PRN PRN PRN Reason: LINE FLUSH Last Admin: 11/13/20 23:10 Dose: 10 ml Documented by: Reviewed/updated patient's home and current medications Review of Systems - Review of Systems All systems: negative (per HPI) Exam - Constitutional Vital Signs: Temp Pulse Resp BP Pulse Ox 102 F H 95 H 18 120/70 96 11/14/20 11:51 11/14/20 11:51 11/14/20 11:51 11/14/20 11:51 11/14/20 11:51 General appearance: no acute distress - EENT Eyes: PERRL, EOM intact - Respiratory Respiratory effort: normal Respiratory: bilateral: CTA - Cardiovascular Rhythm: regular Heart Sounds: Present: S1 & S2 - Gastrointestinal General gastrointestinal: Present: soft, tender (left sided ttp), non-distended - Integumentary Integumentary: Present: clear, warm - Neurologic Neurological: alert and oriented x3 - Psychiatric Psychiatric: appropriate mood/affect - Labs CBC & Chem 7: 11/14/20 04:45 11/14/20 04:45 Lab Results: Laboratory Results - last 24 hr 11/13/20 11/13/20 11/14/20 12:57 15:45 04:45 WBC 6.5 RBC 4.57 Hgb 13.8 Hct 39.9 D MCV 87 MCH 30 MCHC 35 H RDW 14.0 Plt Count 233 Lymph % (Auto) 24.0 [place] % (Auto) 12.1 H Eos % (Auto) 1.1 Baso % (Auto) 0.4 Lymph # (Auto) 1.6 [place] # (Auto) 0.8 Eos # (Auto) 0.1 Baso # (Auto) 0.0 Seg Neutrophils % 62.4 Seg Neutrophils # 4.0 Sodium Potassium Chloride Carbon Dioxide Anion Gap BUN Creatinine Estimated GFR BUN/Creatinine Ratio Glucose Hemoglobin A1c Calcium Magnesium 2.30 Total Creatine Kinase 60 Urine Color Yellow Urine Turbidity Clear Urine pH 5.0 Ur Specific [place] 1.041 H Urine Protein <15 mg/dl Urine Glucose (UA) Neg Urine Ketones Tr Urine Blood Neg Urine Nitrite Neg Urine Bilirubin Neg Urine Urobilinogen < 2.0 Ur Leukocyte Esterase Neg Urine WBC (Auto) 1.0 Urine RBC (Auto) 2.0 U Epithel Cells (Auto) < 1.0 Urine Mucus 2+ 11/14/20 11/14/20 04:45 04:45 WBC RBC Hgb Hct MCV MCH MCHC RDW Plt Count Lymph % (Auto) [place] % (Auto) Eos % (Auto) Baso % (Auto) Lymph # (Auto) [place] # (Auto) Eos # (Auto) Baso # (Auto) Seg Neutrophils % Seg Neutrophils # Sodium 138 Potassium 3.6 Chloride 103.0 Carbon Dioxide 26 Anion Gap 13 BUN 15 Creatinine 0.8 Estimated GFR > 60 BUN/Creatinine Ratio 19 Glucose 98 Hemoglobin A1c 5.1 Calcium 7.9 L Magnesium Total Creatine Kinase Urine Color Urine Turbidity Urine pH Ur Specific [place] Urine Protein Urine Glucose (UA) Urine Ketones Urine Blood Urine Nitrite Urine Bilirubin Urine Urobilinogen Ur Leukocyte Esterase Urine WBC (Auto) Urine RBC (Auto) U Epithel Cells (Auto) Urine Mucus - Imaging CT Scan: report reviewed Assessment and Plan 1. Abdominal pain with nausea/vomiting 2. Colon mass with partial obstructive process -imaging concerning for neoplastic process. needs diagnostic colonoscopy if he is able to tolerate prep (non distended abdomen, having bm's and no n/v today so hopefully can tolerate solution). surgery following. further management/recommendations based on colonoscopy findings
--- NOTE | 2020-11-14 15:49 | Consultation ---
History of Present Illness Consult date: 11/14/20 Reason for consult: abdominal pain Chief complaint: Abdominal pain, nausea/vomiting - History of present illness History of present illness: 40-year-old male with no past medical history presented to the emergency room with 4-day history of cramping abdominal pain. Patient states the pain is diffuse, started suddenly and gradually got worse. He has never had pain like this before. Prior to this he was healthy without any problems with eating or having bowel movements. The pain is intermittent. The pain is associated with nausea and nonbilious/nonbloody emesis. Patient states that he has been having constipation for the past 4 days and tried taking a laxative but did not have any relief. He states that since then he has been having liquidy bowel movements that are dark. He states he was diagnosed with prediabetes and did change his diet in order to achieve weight loss. He has never had a colonoscopy before. No family history of colon cancer or inflammatory bowel disease. No fevers, chills, chest pain, shortness of breath. Patient states that his pain is well controlled with medications being given in the hospital. He is continues to have liquidy bowel movements. No nausea or vomiting. Past History Past Medical History: No medical history Past Surgical History: No surgical history Social history: smoking (12 cigarettes a day). denies: alcohol abuse, prescription drug abuse Family history: cancer (Throat cancer and breast cancer) Medications and Allergies Allergies Allergy/AdvReac Type Severity Reaction Status Date / Time No Known Allergies Allergy Unverified 11/13/20 08:22 Active Meds: Active Medications Acetaminophen (Acetaminophen 325 Mg Tab) 650 mg PO Q4H PRN PRN Reason: Pain MILD(1-3)/Fever >100.5/[place] Last Admin: 11/14/20 11:48 Dose: 650 mg Documented by: Enoxaparin Sodium (Enoxaparin 40 Mg/0.4 Ml Inj) 40 mg SUB-Q QDAY@2200 [facility]; Protocol Famotidine (Famotidine 20 Mg/2 Ml Inj) 20 mg IV BID [facility] Last Admin: 11/14/20 07:47 Dose: 20 mg Documented by: Hydromorphone HCl (Hydromorphone 1 Mg/1 Ml Inj) 0.5 mg IV Q3H PRN PRN Reason: Pain , Severe (7-10) Last Admin: 11/13/20 19:43 Dose: 0.5 mg Documented by: Dextrose/Sodium Chloride (D5ns) 1,000 mls @ 100 mls/hr IV DIRECT ION Last Admin: 11/14/20 07:47 Dose: 100 mls/hr Documented by: Morphine Sulfate (Morphine 2 Mg/1 Ml Inj) 2 mg IV Q4H PRN PRN Reason: Pain, Moderate (4-6) Last Admin: 11/13/20 18:47 Dose: 2 mg Documented by: Ondansetron HCl (Ondansetron 4 Mg/2 Ml Inj) 4 mg IV Q8H PRN PRN Reason: Nausea And Vomiting Sodium Chloride (Sodium Chloride 0.9% 10 Ml Flush Syringe) 10 ml IV BID ION Last Admin: 11/14/20 07:53 Dose: 10 ml Documented by: Sodium Chloride (Sodium Chloride 0.9% 10 Ml Flush Syringe) 10 ml IV PRN PRN PRN Reason: LINE FLUSH Last Admin: 11/13/20 23:10 Dose: 10 ml Documented by: Review of Systems All systems: negative (10 point ROS performed and negative except for that listed in HPI) Exam Vital Signs Temp Pulse Resp BP Pulse Ox 98.6 F 91 H 18 116/88 97 11/13/20 08:23 11/13/20 08:23 11/13/20 08:23 11/13/20 08:23 11/13/20 08:23 Narrative exam: Gen.: Awake, alert, oriented x3. No apparent distress ENT: Trachea midline. No lymphadenopathy. No scleral icterus or conjunctival pallor CV: S1, S2 present Respiratory: No audible wheezes Abdomen: Soft, nondistended, tenderness to palpation in the left upper quadrant, left lower quadrant and epigastrium. No rebound, rigidity, guarding Extremities: No clubbing, cyanosis, edema Results - Labs 11/14/20 04:45 11/14/20 04:45 Abnormal lab results 11/14/20 11/14/20 Range/Units 04:45 04:45 MCHC 35 H (32-34) % [place] % (Auto) 12.1 H (0.0-7.3) % Calcium 7.9 L (8.4-10.2) mg/dL Diabetes panel 11/14/20 11/14/20 Range/Units 04:45 04:45 Sodium 138 (137-145) mmol/L Potassium 3.6 (3.6-5.0) mmol/L Chloride 103.0 (98-107) mmol/L Carbon Dioxide 26 (22-30) mmol/L BUN 15 (9-20) mg/dL Creatinine 0.8 (0.8-1.3) mg/dL Glucose 98 (75-100) mg/dL Hemoglobin A1c 5.1 (4-6) % Calcium 7.9 L (8.4-10.2) mg/dL Calcium panel 11/14/20 Range/Units 04:45 Calcium 7.9 L (8.4-10.2) mg/dL Pituitary panel 11/14/20 Range/Units 04:45 Sodium 138 (137-145) mmol/L Potassium 3.6 (3.6-5.0) mmol/L Chloride 103.0 (98-107) mmol/L Carbon Dioxide 26 (22-30) mmol/L BUN 15 (9-20) mg/dL Creatinine 0.8 (0.8-1.3) mg/dL Glucose 98 (75-100) mg/dL Calcium 7.9 L (8.4-10.2) mg/dL Adrenal panel 11/14/20 Range/Units 04:45 Sodium 138 (137-145) mmol/L Potassium 3.6 (3.6-5.0) mmol/L Chloride 103.0 (98-107) mmol/L Carbon Dioxide 26 (22-30) mmol/L BUN 15 (9-20) mg/dL Creatinine 0.8 (0.8-1.3) mg/dL Glucose 98 (75-100) mg/dL Calcium 7.9 L (8.4-10.2) mg/dL - Imaging Chest x-ray: report reviewed, image reviewed CT scan - abdomen: report reviewed, image reviewed CT scan - pelvis: report reviewed, image reviewed Assessment and Plan 40-year-old male with L colon mass with resultant partial obstruction Pt stable. Plan: 1. May have clear liquid diet 2. IVF 3. prn pain and nausea control 4. DVT ppx 5. GI consulted - recs reviewed and patient to have cscope scheduled 6. CEA pending 7. Will await cscope findings and make further surgical recs. If neoplastic process identified/obstruction patient will likely require surgical intervention. The possibility of surgery for the colon this admission discussed with patient and he understands. All questions answered. Thank you for this consultation. Please call with any questions or concerns. Evaluation and treatment of this patient was during the time of the national and state emergency arising from COVID19 coronavirus pandemic. Treatment and procedures performed meet the current and available best practice and guidelines for patient during the COVID pandemic.
[2020-11-14] MEDS: ENOXAPARIN 40 MG/0.4 ML INJ SUB-Q SCH (22:00)
[2020-11-14] MEDS ORDERED: guaiFENesin 100 MG/5 ML ORAL LIQD PO PRN (23:26)
--- NOTE | 2020-11-15 08:29 | Progress Note ---
Assessment and Plan Assessment and plan: #Partial SBO Tolerating clear liquid diet #Colonic mass CT abdomen shows mass around the splenic flexure with some lymph node spread Denies any family history of colon cancer Surgery following GI on board Plan for colonoscopy per surgery and GI CEA sent #Polycythemia Due to fall in plasma volume IV hydration #Hyponatremia IV normal saline for now #DVT prophylaxis-Heparin History Interval history: 40-year-old -[place] male with no significant past medical history comes in for lower abdominal pain radiating to the left upper quadrant. Pain is intermittent in nature. Colicky pain. Associated with nausea and vomiting. No vomiting since morning. Patient never had colonoscopy. No family history of colon cancer. No exposure to coronavirus. Here in the ED, he had CT abdomen that reveal a large mass in the colon suspicious of malignancy, with metastatic lymph node activity. 11/14. Patient seen and examined at bedside this morning. Still has some abdominal pain. No vomiting overnight. He is passing flatus. Surgery following. 11/15. Tolerating CLD. Plan for colonoscopy by GI. Hospitalist Physical - Physical exam Narrative exam: VITAL SIGNS: Reviewed. GENERAL: Awake HEAD: No signs of head trauma. EYES: Pupils are equal. Extraocular motions intact. MOUTH: Oropharynx is normal. NECK: No adenopathy, no JVD. CHEST: Chest with diminished breath sounds bilaterally. No wheezes, rales, or rhonchi. CARDIAC: normal S1 and S2, without murmurs, gallops, or rubs. ABDOMEN: Soft, slight discomfort around the umbilical area MUSCULOSKELETAL: No edema NEUROLOGIC EXAM: Alert and oriented x3. No focal neurologic deficits SKIN: No obvious lesions - Constitutional Vitals: Temp Pulse Resp BP Pulse Ox 98.5 F 62 18 116/63 95 11/15/20 06:57 11/15/20 06:57 11/15/20 06:57 11/15/20 06:57 11/15/20 06:57 Results - Labs CBC & Chem 7: 11/14/20 04:45 11/14/20 04:45 Labs: Laboratory Last Values WBC 6.5 K/mm3 (4.5-11.0) 11/14/20 04:45 RBC 4.57 M/mm3 (3.65-5.03) 11/14/20 04:45 Hgb 13.8 gm/dl (11.8-15.2) 11/14/20 04:45 Hct 39.9 % (35.5-45.6) D 11/14/20 04:45 MCV 87 fl (84-94) 11/14/20 04:45 MCH 30 pg (28-32) 11/14/20 04:45 MCHC 35 % (32-34) H 11/14/20 04:45 RDW 14.0 % (13.2-15.2) 11/14/20 04:45 Plt Count 233 K/mm3 (140-440) 11/14/20 04:45 Lymph % (Auto) 24.0 % (13.4-35.0) 11/14/20 04:45 [place] % (Auto) 12.1 % (0.0-7.3) H 11/14/20 04:45 Eos % (Auto) 1.1 % (0.0-4.3) 11/14/20 04:45 Baso % (Auto) 0.4 % (0.0-1.8) 11/14/20 04:45 Lymph # (Auto) 1.6 K/mm3 (1.2-5.4) 11/14/20 04:45 [place] # (Auto) 0.8 K/mm3 (0.0-0.8) 11/14/20 04:45 Eos # (Auto) 0.1 K/mm3 (0.0-0.4) 11/14/20 04:45 Baso # (Auto) 0.0 K/mm3 (0.0-0.1) 11/14/20 04:45 Seg Neutrophils % 62.4 % (40.0-70.0) 11/14/20 04:45 Seg Neutrophils # 4.0 K/mm3 (1.8-7.7) 11/14/20 04:45 Sodium 138 mmol/L (137-145) 11/14/20 04:45 Potassium 3.6 mmol/L (3.6-5.0) 11/14/20 04:45 Chloride 103.0 mmol/L (98-107) 11/14/20 04:45 Carbon Dioxide 26 mmol/L (22-30) 11/14/20 04:45 Anion Gap 13 mmol/L 11/14/20 04:45 BUN 15 mg/dL (9-20) 11/14/20 04:45 Creatinine 0.8 mg/dL (0.8-1.3) 11/14/20 04:45 Estimated GFR > 60 ml/min 11/14/20 04:45 BUN/Creatinine Ratio 19 % 11/14/20 04:45 Glucose 98 mg/dL (75-100) 11/14/20 04:45 Hemoglobin A1c 5.1 % (4-6) 11/14/20 04:45 Calcium 7.9 mg/dL (8.4-10.2) L 11/14/20 04:45 Magnesium 2.30 mg/dL (1.7-2.3) 11/13/20 15:45 Total Bilirubin 0.40 mg/dL (0.1-1.2) 11/13/20 10:24 AST 14 units/L (5-40) 11/13/20 10:24 ALT 11 units/L (7-56) 11/13/20 10:24 Alkaline Phosphatase 74 units/L (35-129) 11/13/20 10:24 Total Creatine Kinase 60 units/L (55-170) 11/13/20 15:45 Total Protein 8.4 g/dL (6.3-8.2) H 11/13/20 10:24 Albumin 4.4 g/dL (3.9-5) 11/13/20 10:24 Albumin/Globulin Ratio 1.1 % 11/13/20 10:24 Lipase 19 units/L (13-60) 11/13/20 10:24 Urine Color Yellow (Yellow) 11/13/20 12:57 Urine Turbidity Clear (Clear) 11/13/20 12:57 Urine pH 5.0 (5.0-7.0) 11/13/20 12:57 Ur Specific [place] 1.041 (1.003-1.030) H 11/13/20 12:57 Urine Protein <15 mg/dl mg/dL (Negative) 11/13/20 12:57 Urine Glucose (UA) Neg mg/dL (Negative) 11/13/20 12:57 Urine Ketones Tr mg/dL (Negative) 11/13/20 12:57 Urine Blood Neg (Negative) 11/13/20 12:57 Urine Nitrite Neg (Negative) 11/13/20 12:57 Urine Bilirubin Neg (Negative) 11/13/20 12:57 Urine Urobilinogen < 2.0 mg/dL (<2.0) 11/13/20 12:57 Ur Leukocyte Esterase Neg (Negative) 11/13/20 12:57 Urine WBC (Auto) 1.0 /HPF (0.0-6.0) 11/13/20 12:57 Urine RBC (Auto) 2.0 /HPF (0.0-6.0) 11/13/20 12:57 U Epithel Cells (Auto) < 1.0 /HPF (0-13.0) 11/13/20 12:57 Urine Mucus 2+ /HPF 11/13/20 12:57 June/IV: Voiding Method Urinal Active Medications - Current Medications Current Medications: Generic Name Dose Route Start Last Admin Trade Name Freq PRN Reason Stop Dose Admin Acetaminophen 650 mg 11/13/20 22:44 11/14/20 11:48 Acetaminophen 325 Mg Tab PO 650 mg Q4H PRN Administration Pain MILD(1-3)/Fever >100.5/[place] Enoxaparin Sodium 40 mg 11/14/20 22:00 11/14/20 22:00 Enoxaparin 40 Mg/0.4 Ml Inj SUB-Q 40 mg QDAY@2200 ION Administration Protocol Famotidine 20 mg 11/13/20 23:00 11/14/20 22:00 Famotidine 20 Mg/2 Ml Inj IV 20 mg BID ION Administration Guaifenesin 200 mg 11/14/20 23:26 11/15/20 00:12 Guaifenesin 100 Mg/5 Ml Oral Liqd PO 200 mg Q8H PRN Administration Cough Hydromorphone HCl 0.5 mg 11/13/20 19:26 11/13/20 19:43 Hydromorphone 1 Mg/1 Ml Inj IV 0.5 mg Q3H PRN Administration Pain , Severe (7-10) Dextrose/Sodium Chloride 1,000 mls @ 100 mls/hr 11/13/20 23:00 11/14/20 17:31 D5ns IV 100 mls/hr DIRECT ION Administration Morphine Sulfate 2 mg 11/13/20 18:38 11/13/20 18:47 Morphine 2 Mg/1 Ml Inj IV 2 mg Q4H PRN Administration Pain, Moderate (4-6) Ondansetron HCl 4 mg 11/13/20 22:44 Ondansetron 4 Mg/2 Ml Inj IV Q8H PRN Nausea And Vomiting Sodium Chloride 10 ml 11/14/20 08:00 11/15/20 00:13 Sodium Chloride 0.9% 10 Ml Flush Syringe IV 10 ml BID ION Administration Sodium Chloride 10 ml 11/13/20 22:44 11/13/20 23:10 Sodium Chloride 0.9% 10 Ml Flush Syringe IV 10 ml PRN PRN Administration LINE FLUSH
[2020-11-15] MEDS: FAMOTIDINE 20 MG/2 ML INJ IV SCH ×2 (08:31→21:41)
--- NOTE | 2020-11-15 11:05 | Event Note ---
Date: 11/15/20 Pt chart reviewed. He states he is doing well. No n/v, f/c, pain well controlled, and tolerating liquid diet. 40-year-old male with L colon mass with resultant partial obstruction Plan: 1. Clear liquid diet 2. IVF 3. prn pain and nausea control 4. DVT ppx 5. GI consulted - recs reviewed and patient to have cscope scheduled 6. CEA pending 7. Will await cscope findings and make further surgical recs. If neoplastic process identified/obstruction patient will likely require surgical intervention. The possibility of surgery for the colon this admission discussed with patient and he understands. All questions answered. Please call with any questions or concerns.
[2020-11-15] MEDS ORDERED: POLYETHYLENE GLYCOL/ELECT SOLN 4000 ML PO NR (12:09)
--- NOTE | 2020-11-15 12:12 | Gastroenterology Progress Note ---
Assessment and Plan plan on colonoscopy tomorrow, differential diagnosis includes impaction, colon cancer, IBD, etc. Instructed patient to prep very slowly If patient cannot tolerate prep I spoke with the patient's nurse Libra and will give tapwater enemas until clear so we can at least attempt to reach the lesion seen on the CAT scan - Patient Problems (1) Acute abdominal pain Current Visit: Yes Status: Acute (2) Colonic mass Current Visit: Yes Status: Acute (3) Nausea and vomiting Current Visit: Yes Status: Acute Subjective Date of service: 11/15/20 Principal diagnosis: abnormal imaging of the colon Interval history: recent onset abd pain, n/v, and bowel habit changes ~[address] scan in ED which showed a large colon mass at the splenic flexure causing partial obstruction, planning on C-scope tomorrow Reports abdominal pain moderately better still having only loose stool, no solid stool Objective - Constitutional Vitals: Temp Pulse Resp BP Pulse Ox 98.3 F 57 L 18 118/68 95 11/15/20 10:44 11/15/20 10:44 11/15/20 10:44 11/15/20 10:44 11/15/20 10:44 General appearance: no acute distress - EENT Eyes: EOM intact ENT: hearing intact - Neck Neck: supple - Respiratory Respiratory effort: normal - Gastrointestinal General gastrointestinal: Present: soft, tender - Labs CBC & Chem 7: 11/14/20 04:45 11/14/20 04:45
[2020-11-16] MEDS: ENOXAPARIN 40 MG/0.4 ML INJ SUB-Q SCH (04:16)
[2020-11-16 04:48] LABS: Basophils % (Auto) 0.5 % (0.0-1.8); Eosinophils # (Auto) 0.2 K/mm3 (0.0-0.4); Eosinophils % (Auto) 3.5 % (0.0-4.3); Hematocrit 37.2 % (35.5-45.6); Hemoglobin 12.7 gm/dl (11.8-15.2); Lymphocytes # (Auto) 1.5 K/mm3 (1.2-5.4); Lymphocytes % (Auto) 23.6 % (13.4-35.0); Mean Corpuscular HGB Conc 34 % (32-34); Mean Corpuscular Volume 89 fl (84-94); Monocytes # (Auto) 0.9 K/mm3 (0.0-0.8); Monocytes % (Auto) 13.3 % (0.0-7.3); Platelet Count 224 K/mm3 (140-440)
[2020-11-16 05:11] LABS: Alanine Aminotransferase 9 units/L (7-56); Albumin 3.5 g/dL (3.9-5); Blood Urea Nitrogen 4 mg/dL (9-20); Calcium 8.7 mg/dL (8.4-10.2); Hemolysis Index 0
[2020-11-16 05:12] LABS: BUN/Creatinine Ratio 6
[2020-11-16] MEDS: D5W/0.9% NACL 1,000 ML IV SCH ×2 (05:43→13:56)
--- NOTE | 2020-11-16 07:31 | Anesthesia Day of Surgery ---
Anesthesia Day of Surgery - Day of Surgery Patient Examined: Yes Patient H&P Reviewed: Yes Patient is NPO: Yes
--- NOTE | 2020-11-16 07:31 | Anesthesia Consultation ---
Anesthesia Consult and Med Hx Date of service: 11/16/20 - Airway Anesthetic Teeth Evaluation: Good ROM Head & Neck: Adequate Mental/Hyoid Distance: Adequate - Pulmonary Exam CTA: Yes - Cardiac Exam Cardiac Exam: RRR - Pre-Operative Health Status ASA Pre-Surgery Classification: ASA1 Proposed Anesthetic Plan: MAC - Pulmonary Hx Smoking: Yes - Central Nervous System Hx Psychiatric Problems: No - Other Systems Hx Cancer: No
[2020-11-16] MEDS ORDERED: MIDAZOLAM 2 MG/2 ML INJ ONE (07:35)
[2020-11-16] MEDS ORDERED: LIDOCAINE MPF (2%) 20 MG/1 ML VIAL 5 ML ONE (07:35)
[2020-11-16] MEDS ORDERED: propofoL 200 MG/20 ML VIAL IV ONE (07:35)
[2020-11-16] MEDS ORDERED: SODIUM CHLORIDE 0.9% 1000 ML 1,000 ML ONE (07:36)
[2020-11-16] MEDS ORDERED: WATER FOR IRRIG STERILE 250 ML BOTTLE IR ONE (07:45)
[2020-11-16] MEDS ORDERED: SODIUM CHLORIDE 0.9% 1000 ML 1,000 ML IV SCH (08:00)
--- NOTE | 2020-11-16 08:14 | Operative Report ---
Operative Report Operative Report: DOS: 11/16/2020 SURGEON: Brendan Prasad MD COLONOSCOPY WITH SNARE POLYPECTOMY, BIOPSY, AND TATTOO REPORT PREOPERATIVE AND POSTOPERATIVE DIAGNOSIS: Abnormal CAT scan, colon mass DESCRIPTION OF PROCEDURE: The colonoscope was attempted to be passed to the passed to the cecum, however the scope was and able to pass beyond approximately the splenic flexure due to the obstructing lesion. Scope was carefully withdrawn. Retroflexion was performed in the rectum. At the end of procedure, the scope was cleaned using normal technique. Vital signs monitored continuously throughout. SEDATION: Provided by Anesthesiology Services. Quality of the prep was adequate. COMPLICATIONS: None. ESTIMATED BLOOD LOSS: Minimal FINDINGS: * Large obstructing malignant appearing mass with necrotic appearing tissue as well around the area of the sigmoid colon. This was tattooed with 2 cc of spot ink. cold forceps used to obtain biopsies of the mass * 2 semisessile polyps in the rectosigmoid colon. Larger one was 8 mm in diameter and removed by hot snare polypectomy. Smaller one was 6 mm in diameter removed with cold snare polypectomy * 5 mm semisessile polyp in the sigmoid colon removed with cold snare polypectomy * Remainder of exam was unremarkable RECOMMENDATIONS: * Patient will require surgery for the obstructing mass. I spoke with and informed her of the colonoscopy findings. I will place the patient on clear liquid diet and further management per Dr. Ahmadi. Patient will require oncology consultation as well * As I was not able to pass the obstructing lesion once the patient has recovered from his surgical resection of the mass he will require repeat colonoscopy to ensure no proximal synchronous lesions * Patient will then require colonoscopy in 1 year * All first-degree relatives of the patient will require colonoscopy starting at age 28 * When patient has the large mass resected I would recommend testing for evidence of HNPCC, and I recommend he see die maker bench stamping
--- NOTE | 2020-11-16 08:47 | Post Anesthesia Evaluation ---
- Post Anesthesia Evaluation Patient Participated: Yes Airway Patent: Yes Stable Respiratory Function: Yes Nausea/Vomiting: No Temp > 96.8F: Yes Pain Manageable: Yes Adequeate Hydration: Yes Anesthesia Complications: No
--- NOTE | 2020-11-16 09:09 | Progress Note ---
Assessment and Plan Assessment and plan: #Partial SBO Tolerating clear liquid diet #Colonic mass CT abdomen shows mass around the splenic flexure with some lymph node spread Colonoscopy showed large obstructing malignant appearing mass with necrotic appearing tissue as well around the area of the sigmoid colon. Mass biopsied. Surgery to reevaluate and plan for resection of mass Oncology consulted. CEA pending #Polycythemia Resolved #Hyponatremia Resolved #DVT prophylaxis-Heparin History Interval history: 40-year-old -Finnish male with no significant past medical history comes in for lower abdominal pain radiating to the left upper quadrant. Pain is intermittent in nature. Colicky pain. Associated with nausea and vomiting. No vomiting since morning. Patient never had colonoscopy. No family history of colon cancer. No exposure to coronavirus. Here in the ED, he had CT abdomen that reveal a large mass in the colon suspicious of malignancy, with metastatic lymph node activity. 11/14. Patient seen and examined at bedside this morning. Still has some abdominal pain. No vomiting overnight. He is passing flatus. Surgery following. 11/15. Tolerating CLD. Plan for colonoscopy by GI. 11/16. Colonscopy shows large obstructing malignant appearing mass with necrotic t issue around the sigmoid colon, sessile polyps in the rectosigmoid and sigmoid colon. Surgery to reevaluate and plan for surgical resection. Oncology has been consulted. Hospitalist Physical - Physical exam Narrative exam: VITAL SIGNS: Reviewed. GENERAL: Awake HEAD: No signs of head trauma. EYES: Pupils are equal. Extraocular motions intact. MOUTH: Oropharynx is normal. NECK: No adenopathy, no JVD. CHEST: Chest with diminished breath sounds bilaterally. No wheezes, rales, or rhonchi. CARDIAC: normal S1 and S2, without murmurs, gallops, or rubs. ABDOMEN: Soft, slight discomfort around the umbilical area MUSCULOSKELETAL: No edema NEUROLOGIC EXAM: Alert and oriented x3. No focal neurologic deficits SKIN: No obvious lesions - Constitutional Vitals: Temp Pulse Resp BP Pulse Ox 98.2 F 61 20 113/72 96 11/16/20 07:22 11/16/20 07:22 11/16/20 07:22 11/16/20 07:22 11/16/20 07:22 Results - Labs CBC & Chem 7: 11/16/20 04:06 11/16/20 04:06 Labs: Laboratory Last Values WBC 6.4 K/mm3 (4.5-11.0) 11/16/20 04:06 RBC 4.20 M/mm3 (3.65-5.03) 11/16/20 04:06 Hgb 12.7 gm/dl (11.8-15.2) 11/16/20 04:06 Hct 37.2 % (35.5-45.6) 11/16/20 04:06 MCV 89 fl (84-94) 11/16/20 04:06 MCH 30 pg (28-32) 11/16/20 04:06 MCHC 34 % (32-34) 11/16/20 04:06 RDW 14.0 % (13.2-15.2) 11/16/20 04:06 Plt Count 224 K/mm3 (140-440) 11/16/20 04:06 Lymph % (Auto) 23.6 % (13.4-35.0) 11/16/20 04:06 [place] % (Auto) 13.3 % (0.0-7.3) H 11/16/20 04:06 Eos % (Auto) 3.5 % (0.0-4.3) 11/16/20 04:06 Baso % (Auto) 0.5 % (0.0-1.8) 11/16/20 04:06 Lymph # (Auto) 1.5 K/mm3 (1.2-5.4) 11/16/20 04:06 [place] # (Auto) 0.9 K/mm3 (0.0-0.8) H 11/16/20 04:06 Eos # (Auto) 0.2 K/mm3 (0.0-0.4) 11/16/20 04:06 Baso # (Auto) 0.0 K/mm3 (0.0-0.1) 11/16/20 04:06 Seg Neutrophils % 59.1 % (40.0-70.0) 11/16/20 04:06 Seg Neutrophils # 3.8 K/mm3 (1.8-7.7) 11/16/20 04:06 Sodium 141 mmol/L (137-145) 11/16/20 04:06 Potassium 3.6 mmol/L (3.6-5.0) 11/16/20 04:06 Chloride 105.0 mmol/L (98-107) 11/16/20 04:06 Carbon Dioxide 26 mmol/L (22-30) 11/16/20 04:06 Anion Gap 14 mmol/L 11/16/20 04:06 BUN 4 mg/dL (9-20) L 11/16/20 04:06 Creatinine 0.7 mg/dL (0.8-1.3) L 11/16/20 04:06 Estimated GFR > 60 ml/min 11/16/20 04:06 BUN/Creatinine Ratio 6 % 11/16/20 04:06 Glucose 102 mg/dL (75-100) H 11/16/20 04:06 Hemoglobin A1c 5.1 % (4-6) 11/14/20 04:45 Calcium 8.7 mg/dL (8.4-10.2) 11/16/20 04:06 Magnesium 2.30 mg/dL (1.7-2.3) 11/13/20 15:45 Total Bilirubin 0.20 mg/dL (0.1-1.2) 11/16/20 04:06 AST 11 units/L (5-40) 11/16/20 04:06 ALT 9 units/L (7-56) 11/16/20 04:06 Alkaline Phosphatase 50 units/L (35-129) 11/16/20 04:06 Total Creatine Kinase 60 units/L (55-170) 11/13/20 15:45 Total Protein 6.2 g/dL (6.3-8.2) L D 11/16/20 04:06 Albumin 3.5 g/dL (3.9-5) L 11/16/20 04:06 Albumin/Globulin Ratio 1.3 % 11/16/20 04:06 Lipase 19 units/L (13-60) 11/13/20 10:24 Urine Color Yellow (Yellow) 11/13/20 12:57 Urine Turbidity Clear (Clear) 11/13/20 12:57 Urine pH 5.0 (5.0-7.0) 11/13/20 12:57 Ur Specific [place] 1.041 (1.003-1.030) H 11/13/20 12:57 Urine Protein <15 mg/dl mg/dL (Negative) 11/13/20 12:57 Urine Glucose (UA) Neg mg/dL (Negative) 11/13/20 12:57 Urine Ketones Tr mg/dL (Negative) 11/13/20 12:57 Urine Blood Neg (Negative) 11/13/20 12:57 Urine Nitrite Neg (Negative) 11/13/20 12:57 Urine Bilirubin Neg (Negative) 11/13/20 12:57 Urine Urobilinogen < 2.0 mg/dL (<2.0) 11/13/20 12:57 Ur Leukocyte Esterase Neg (Negative) 11/13/20 12:57 Urine WBC (Auto) 1.0 /HPF (0.0-6.0) 11/13/20 12:57 Urine RBC (Auto) 2.0 /HPF (0.0-6.0) 11/13/20 12:57 U Epithel Cells (Auto) < 1.0 /HPF (0-13.0) 11/13/20 12:57 Urine Mucus 2+ /HPF 11/13/20 12:57 June/IV: Voiding Method Toilet Active Medications - Current Medications Current Medications: Generic Name Dose Route Start Last Admin Trade Name Freq PRN Reason Stop Dose Admin Acetaminophen 650 mg 11/13/20 22:44 11/14/20 11:48 Acetaminophen 325 Mg Tab PO 650 mg Q4H PRN Administration Pain MILD(1-3)/Fever >100.5/[place] Enoxaparin Sodium 40 mg 11/14/20 22:00 11/16/20 04:16 Enoxaparin 40 Mg/0.4 Ml Inj SUB-Q Not Given QDAY@[facility] Protocol Famotidine 20 mg 11/13/20 23:00 11/15/20 21:41 Famotidine 20 Mg/2 Ml Inj IV 20 mg BID ION Administration Guaifenesin 200 mg 11/14/20 23:26 11/15/20 00:12 Guaifenesin 100 Mg/5 Ml Oral Liqd PO 200 mg Q8H PRN Administration Cough Hydromorphone HCl 0.5 mg 11/13/20 19:26 11/13/20 19:43 Hydromorphone 1 Mg/1 Ml Inj IV 0.5 mg Q3H PRN Administration Pain , Severe (7-10) Dextrose/Sodium Chloride 1,000 mls @ 100 mls/hr 11/15/20 23:00 11/16/20 05:43 D5ns IV 100 mls/hr DIRECT ION Administration Sodium Chloride 1,000 mls @ 50 mls/hr 11/16/20 08:00 Nacl 0.9% 1000 Ml IV 11/17/20 07:59 DIRECT ION Morphine Sulfate 2 mg 11/13/20 18:38 11/13/20 18:47 Morphine 2 Mg/1 Ml Inj IV 2 mg Q4H PRN Administration Pain, Moderate (4-6) Ondansetron HCl 4 mg 11/13/20 22:44 Ondansetron 4 Mg/2 Ml Inj IV Q8H PRN Nausea And Vomiting Scopolamine 1 each 11/17/20 09:00 Scopolamine Transdermal Patch 72 Hr TD 11/17/20 09:01 ONCE ONE Sodium Chloride 10 ml 11/14/20 08:00 11/16/20 08:08 Sodium Chloride 0.9% 10 Ml Flush Syringe IV 10 ml BID ION Administration Sodium Chloride 10 ml 11/13/20 22:44 11/13/20 23:10 Sodium Chloride 0.9% 10 Ml Flush Syringe IV 10 ml PRN PRN Administration LINE FLUSH
--- NOTE | 2020-11-16 09:13 | Event Note ---
Date: 11/16/20 Given no further GI interventions required during this hospitalization GI will sign off Please feel free to call back with any questions or concerns I gave the patient my business card, he needs to follow-up with us as an outpatient for repeat colonoscopy once his surgery is completed
--- NOTE | 2020-11-16 10:34 | Electrocardiograph Report ---
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
--- NOTE | 2020-11-16 13:28 | Progress Note ---
Assessment and Plan 40 yo M with splenic flexure colon mass Cscope 11/16/20 - Malignant, obstructing mass at splenic flexure, unable to be traversed. Several small polyps, snared and retrieved. Plan: 1. Clear liquid diet, NPO p MN tonight 2. CEA pending 3. DVT ppx - lovenox 4. prn pain control 5. Cscope results reviewed with patient. Will need colon resection for obstructing mass. Discussed surgical indication, procedure, risks, benefits, and alternatives. Questions answered and consent obtained for lap left colectomy, possible open, possible ostomy. Patient added to OR schedule for tomorrow. 6. Oncology consult pending. The possibility of needing adjuvant treatment discussed with patient along with strong recommendation to obtain genetic counseling for himself and children. 7. Type and screen ordered for am Thank you, please call with questions Subjective Date of service: 11/16/20 Narrative: Pt seen and examined. No acute complaints. No abd pain. No f/c, n/v Objective Vital Signs - 12hr 11/16/20 11/16/20 11/16/20 05:37 07:22 08:07 Temperature 98.7 F 98.2 F Pulse Rate 52 L 61 50 L Respiratory 18 20 21 Rate Blood Pressure 113/69 113/72 111/58 O2 Sat by Pulse 97 96 98 Oximetry 11/16/20 11/16/20 11/16/20 08:22 08:37 08:45 Temperature Pulse Rate 62 60 58 L Respiratory 15 15 16 Rate Blood Pressure 128/72 122/78 122/75 O2 Sat by Pulse 96 97 97 Oximetry 11/16/20 11:49 Temperature 97.8 F Pulse Rate 53 L Respiratory 16 Rate Blood Pressure 116/64 O2 Sat by Pulse 97 Oximetry - General physical appearance Narrative Exam: Gen: AAOx3. NAD CV: s1, S2+ Resp: even and unlabored Abd: soft Ext: no c/c/e - Labs 11/16/20 04:06 11/16/20 04:06 Diabetes panel 11/16/20 Range/Units 04:06 Sodium 141 (137-145) mmol/L Potassium 3.6 (3.6-5.0) mmol/L Chloride 105.0 (98-107) mmol/L Carbon Dioxide 26 (22-30) mmol/L BUN 4 L (9-20) mg/dL Creatinine 0.7 L (0.8-1.3) mg/dL Glucose 102 H (75-100) mg/dL Calcium 8.7 (8.4-10.2) mg/dL AST 11 (5-40) units/L ALT 9 (7-56) units/L Alkaline Phosphatase 50 (35-129) units/L Total Protein 6.2 L D (6.3-8.2) g/dL Albumin 3.5 L (3.9-5) g/dL Calcium panel 11/16/20 Range/Units 04:06 Calcium 8.7 (8.4-10.2) mg/dL Albumin 3.5 L (3.9-5) g/dL Pituitary panel 11/16/20 Range/Units 04:06 Sodium 141 (137-145) mmol/L Potassium 3.6 (3.6-5.0) mmol/L Chloride 105.0 (98-107) mmol/L Carbon Dioxide 26 (22-30) mmol/L BUN 4 L (9-20) mg/dL Creatinine 0.7 L (0.8-1.3) mg/dL Glucose 102 H (75-100) mg/dL Calcium 8.7 (8.4-10.2) mg/dL Adrenal panel 11/16/20 Range/Units 04:06 Sodium 141 (137-145) mmol/L Potassium 3.6 (3.6-5.0) mmol/L Chloride 105.0 (98-107) mmol/L Carbon Dioxide 26 (22-30) mmol/L BUN 4 L (9-20) mg/dL Creatinine 0.7 L (0.8-1.3) mg/dL Glucose 102 H (75-100) mg/dL Calcium 8.7 (8.4-10.2) mg/dL Total Bilirubin 0.20 (0.1-1.2) mg/dL AST 11 (5-40) units/L ALT 9 (7-56) units/L Alkaline Phosphatase 50 (35-129) units/L Total Protein 6.2 L D (6.3-8.2) g/dL Albumin 3.5 L (3.9-5) g/dL
[2020-11-16] MEDS: FAMOTIDINE 20 MG/2 ML INJ IV SCH ×2 (13:49→21:36)
[2020-11-17 08:38] LABS: Hemoglobin 13.1 gm/dl (11.8-15.2); Mean Corpuscular HGB Conc 35 % (32-34); Mean Corpuscular Volume 87 fl (84-94); Platelet Count 256 K/mm3 (140-440); Red Blood Count 4.37 M/mm3 (3.65-5.03); Red Cell Distribution Width 13.5 % (13.2-15.2)
[2020-11-17 09:00] LABS: Blood Urea Nitrogen 4 mg/dL (9-20); Hemolysis Index 0
[2020-11-17] MEDS ORDERED: SCOPOLAMINE TRANSDERMAL PATCH 72 HR TD NR (09:00)
[2020-11-17 09:01] LABS: BUN/Creatinine Ratio 6
--- NOTE | 2020-11-17 10:22 | Hem/Onc Consultation ---
History of Present Illness - History of Present Illness onc consult televisit via [facility] reason for consult: new colon tumor HPI: 40yo man with no chronic medical problems, now eval for L abd pain over 4 days denies constipation, rectal bleeding, vomiting CT found large L abd mass near splenic flexure with regional enlarged LN Colonscopy-unable to pass through mass FH: neg for malignancy Meds: none DATA REVIEWED BELOW IMP: new dx colon cancer, with obstructing L side tumor and regional LA no obvious evidence of metastatic cancer PLAN: partial colectomy/colon tumor resection being planned anticipate that he will need adjuvant chemotherapy it would be reasonable to place a port discussed diagnosis and prognosis with pt [facility] for DVT/PE prevention Active Medications Acetaminophen (Acetaminophen 325 Mg Tab) 650 mg PO Q4H PRN PRN Reason: Pain MILD(1-3)/Fever >100.5/[place] Last Admin: 11/14/20 11:48 Dose: 650 mg Documented by: Enoxaparin Sodium (Enoxaparin 40 Mg/0.4 Ml Inj) 40 mg SUB-Q QDAY@2200 ION; Protocol Last Admin: 11/16/20 04:16 Dose: Not Given Documented by: Famotidine (Famotidine 20 Mg/2 Ml Inj) 20 mg IV BID [facility] Last Admin: 11/16/20 21:36 Dose: 20 mg Documented by: Guaifenesin (Guaifenesin 100 Mg/5 Ml Oral Liqd) 200 mg PO Q8H PRN PRN Reason: Cough Last Admin: 11/15/20 00:12 Dose: 200 mg Documented by: Hydromorphone HCl (Hydromorphone 1 Mg/1 Ml Inj) 0.5 mg IV Q3H PRN PRN Reason: Pain , Severe (7-10) Last Admin: 11/13/20 19:43 Dose: 0.5 mg Documented by: Dextrose/Sodium Chloride (D5ns) 1,000 mls @ 100 mls/hr IV DIRECT ION Last Admin: 11/16/20 13:56 Dose: 100 mls/hr Documented by: Morphine Sulfate (Morphine 2 Mg/1 Ml Inj) 2 mg IV Q4H PRN PRN Reason: Pain, Moderate (4-6) Last Admin: 11/13/20 18:47 Dose: 2 mg Documented by: Laboratory Last Values WBC 6.9 K/mm3 (4.5-11.0) 11/17/20 08:18 Hgb 13.1 gm/dl (11.8-15.2) 11/17/20 08:18 Hct 38.0 % (35.5-45.6) 11/17/20 08:18 Plt Count 256 K/mm3 (140-440) 11/17/20 08:18 Creatinine 0.7 mg/dL (0.8-1.3) L 11/17/20 08:18 AST 11 units/L (5-40) 11/16/20 04:06 ALT 9 units/L (7-56) 11/16/20 04:06 Alkaline Phosphatase 50 units/L (35-129) 11/16/20 04:06 Blood Type A POSITIVE 11/17/20 08:21 Past History Past Medical History: No medical history Past Surgical History: No surgical history Social history: smoking (12 cigarettes a day). denies: alcohol abuse, prescription drug abuse Family history: cancer (Throat cancer and breast cancer) Medications and Allergies Allergies Allergy/AdvReac Type Severity Reaction Status Date / Time No Known Allergies Allergy Unverified 11/13/20 08:22 Active Meds: Active Medications Acetaminophen (Acetaminophen 325 Mg Tab) 650 mg PO Q4H PRN PRN Reason: Pain MILD(1-3)/Fever >100.5/[place] Last Admin: 11/14/20 11:48 Dose: 650 mg Documented by: Enoxaparin Sodium (Enoxaparin 40 Mg/0.4 Ml Inj) 40 mg SUB-Q QDAY@22[facility]; Protocol Last Admin: 11/16/20 04:16 Dose: Not Given Documented by: Famotidine (Famotidine 20 Mg/2 Ml Inj) 20 mg IV BID [facility] Last Admin: 11/16/20 21:36 Dose: 20 mg Documented by: Guaifenesin (Guaifenesin 100 Mg/5 Ml Oral Liqd) 200 mg PO Q8H PRN PRN Reason: Cough Last Admin: 11/15/20 00:12 Dose: 200 mg Documented by: Hydromorphone HCl (Hydromorphone 1 Mg/1 Ml Inj) 0.5 mg IV Q3H PRN PRN Reason: Pain , Severe (7-10) Last Admin: 11/13/20 19:43 Dose: 0.5 mg Documented by: Dextrose/Sodium Chloride (D5ns) 1,000 mls @ 100 mls/hr IV DIRECT ION Last Admin: 11/16/20 13:56 Dose: 100 mls/hr Documented by: Morphine Sulfate (Morphine 2 Mg/1 Ml Inj) 2 mg IV Q4H PRN PRN Reason: Pain, Moderate (4-6) Last Admin: 11/13/20 18:47 Dose: 2 mg Documented by: Ondansetron HCl (Ondansetron 4 Mg/2 Ml Inj) 4 mg IV Q8H PRN PRN Reason: Nausea And Vomiting Scopolamine (Scopolamine Transdermal Patch 72 Hr) 1 each TD ONCE NR Stop: 11/17/20 18:00 Sodium Chloride (Sodium Chloride 0.9% 10 Ml Flush Syringe) 10 ml IV BID ION Last Admin: 11/16/20 21:40 Dose: 10 ml Documented by: Sodium Chloride (Sodium Chloride 0.9% 10 Ml Flush Syringe) 10 ml IV PRN PRN PRN Reason: LINE FLUSH Last Admin: 11/16/20 21:38 Dose: 10 ml Documented by: Exam - Constitutional Vitals: Last Vital Signs Temp 98.1 F 11/17/20 07:59 Pulse 50 L 11/17/20 07:59 Resp 16 11/17/20 07:59 BP 121/72 11/17/20 07:59 Pulse Ox 95 11/17/20 07:59 Results - Labs lab Results: Laboratory Results - last 24 hr 11/17/20 11/17/20 11/17/20 08:18 08:18 08:21 WBC 6.9 RBC 4.37 Hgb 13.1 Hct 38.0 MCV 87 MCH 30 MCHC 35 H RDW 13.5 Plt Count 256 Sodium 138 Potassium 3.8 Chloride 104.0 Carbon Dioxide 26 Anion Gap 12 BUN 4 L Creatinine 0.7 L Estimated GFR > 60 BUN/Creatinine Ratio 6 Glucose 91 Calcium 9.0 Blood Type A POSITIVE
[2020-11-17] MEDS: FAMOTIDINE 20 MG/2 ML INJ IV SCH ×2 (13:21→22:16)
--- NOTE | 2020-11-17 13:42 | Anesthesia Day of Surgery ---
Anesthesia Day of Surgery - Day of Surgery Patient Examined: Yes Patient H&P Reviewed: Yes Patient is NPO: Yes
--- NOTE | 2020-11-17 13:42 | Anesthesia Consultation ---
Anesthesia Consult and Med Hx Date of service: 11/17/20 - Airway Anesthetic Teeth Evaluation: Poor (some missing, careous teeth) ROM Head & Neck: Adequate Mental/Hyoid Distance: Adequate Mallampati Class: Class II Intubation Access Assessment: Probably Good - Pre-Operative Health Status ASA Pre-Surgery Classification: ASA2 Proposed Anesthetic Plan: General Nerve Block: TAP - Pulmonary Hx Smoking: Yes - Central Nervous System Hx Psychiatric Problems: No - Other Systems Hx Cancer: Yes (Colon mass with partial bowel obstruction)
[2020-11-17] MEDS ORDERED: LIDOCAINE (1%) 10 MG/1 ML VIAL 20 ML MDV INFILTRATI NR (14:00)
[2020-11-17] MEDS ORDERED: LACTATED RINGERS 1,000 ML IV SCH (14:00)
[2020-11-17] MEDS ORDERED: fentaNYL 100 MCG/2 ML INJ IV SCH (14:00)
[2020-11-17] MEDS ORDERED: MIDAZOLAM 2 MG/2 ML INJ IV NR (14:00)
[2020-11-17] MEDS ORDERED: SODIUM CHLORIDE 0.9% P/F 10 ML VIAL INFILTRATI NR (14:00)
[2020-11-17] MEDS ORDERED: SCOPOLAMINE TRANSDERMAL PATCH 72 HR TD SCH (14:00)
[2020-11-17] MEDS ORDERED: FAMOTIDINE 20 MG TAB PO NR (14:00)
[2020-11-17] MEDS ORDERED: BUPIVACAINE/PF (0.5%) 5 MG/1 ML 10 ML VIAL INFILTRATI NR (14:00)
[2020-11-17] MEDS ORDERED: BUPIVACAINE/PF (0.25%) 2.5 MG/ML 30 ML VIAL INFILTRATI ONE (15:02)
[2020-11-17] MEDS ORDERED: dexAMETHasone 4 MG/ML VIAL ONE (15:02)
--- NOTE | 2020-11-17 16:25 | Event Note ---
Date: 11/17/20 Due to OR staffing/scheduling, surgery postponed until tomorrow. Discussed with patient. He has no complaints. Clear liquids ordered, NPO gwen mohamud. ALEN Oconnell made aware. For left hemicolectomy 11/18/20.
[2020-11-18] MEDS: ENOXAPARIN 40 MG/0.4 ML INJ SUB-Q SCH ×3 (00:31→23:27)
--- NOTE | 2020-11-18 07:59 | Progress Note ---
Assessment and Plan Assessment and plan: Partial small bowel obstruction Colonic mass. CT abdomen shows mass around the splenic flexure with some lymph node spread. Colonoscopy showed large obstructing malignant appearing mass with necrotic appearing tissue as well around the area of the sigmoid colon Polycythemia Hyponatremia 11/18/2020. Patient has been n.p.o. after midnight with plans for hemicolectomy/tumor resection today. Follow-up [facility]. Patient will likely need adjuvant chemotherapy per oncology. Continue Lovenox as inpatient for DVT/PE prevention. History Interval history: No new issues overnight Hospitalist Physical - Constitutional Vitals: Temp Pulse Resp BP Pulse Ox 97.6 F 49 L 18 110/71 96 11/18/20 05:29 11/18/20 05:29 11/18/20 05:29 11/18/20 05:29 11/18/20 05:29 General appearance: Present: no acute distress, well-nourished - EENT Eyes: Present: PERRL, EOM intact ENT: hearing intact, clear oral mucosa, dentition normal - Neck Neck: Present: supple, normal ROM - Respiratory Respiratory effort: normal Respiratory: bilateral: CTA - Cardiovascular Rhythm: regular Heart Sounds: Present: S1 & S2. Absent: gallop, rub - Extremities Extremities: no ischemia, No edema, Full ROM - Abdominal General gastrointestinal: soft, non-tender, non-distended, normal bowel sounds - Integumentary Integumentary: Present: clear, warm, dry - Neurologic Neurologic: CNII-XII intact, moves all extremities Results - Labs CBC & Chem 7: 11/17/20 08:18 11/17/20 08:18 Labs: Laboratory Last Values WBC 6.9 K/mm3 (4.5-11.0) 11/17/20 08:18 RBC 4.37 M/mm3 (3.65-5.03) 11/17/20 08:18 Hgb 13.1 gm/dl (11.8-15.2) 11/17/20 08:18 Hct 38.0 % (35.5-45.6) 11/17/20 08:18 MCV 87 fl (84-94) 11/17/20 08:18 MCH 30 pg (28-32) 11/17/20 08:18 MCHC 35 % (32-34) H 11/17/20 08:18 RDW 13.5 % (13.2-15.2) 11/17/20 08:18 Plt Count 256 K/mm3 (140-440) 11/17/20 08:18 Lymph % (Auto) 23.6 % (13.4-35.0) 11/16/20 04:06 [place] % (Auto) 13.3 % (0.0-7.3) H 11/16/20 04:06 Eos % (Auto) 3.5 % (0.0-4.3) 11/16/20 04:06 Baso % (Auto) 0.5 % (0.0-1.8) 11/16/20 04:06 Lymph # (Auto) 1.5 K/mm3 (1.2-5.4) 11/16/20 04:06 [place] # (Auto) 0.9 K/mm3 (0.0-0.8) H 11/16/20 04:06 Eos # (Auto) 0.2 K/mm3 (0.0-0.4) 11/16/20 04:06 Baso # (Auto) 0.0 K/mm3 (0.0-0.1) 11/16/20 04:06 Seg Neutrophils % 59.1 % (40.0-70.0) 11/16/20 04:06 Seg Neutrophils # 3.8 K/mm3 (1.8-7.7) 11/16/20 04:06 Sodium 138 mmol/L (137-145) 11/17/20 08:18 Potassium 3.8 mmol/L (3.6-5.0) 11/17/20 08:18 Chloride 104.0 mmol/L (98-107) 11/17/20 08:18 Carbon Dioxide 26 mmol/L (22-30) 11/17/20 08:18 Anion Gap 12 mmol/L 11/17/20 08:18 BUN 4 mg/dL (9-20) L 11/17/20 08:18 Creatinine 0.7 mg/dL (0.8-1.3) L 11/17/20 08:18 Estimated GFR > 60 ml/min 11/17/20 08:18 BUN/Creatinine Ratio 6 % 11/17/20 08:18 Glucose 91 mg/dL (75-100) 11/17/20 08:18 Hemoglobin A1c 5.1 % (4-6) 11/14/20 04:45 Calcium 9.0 mg/dL (8.4-10.2) 11/17/20 08:18 Magnesium 2.30 mg/dL (1.7-2.3) 11/13/20 15:45 Total Bilirubin 0.20 mg/dL (0.1-1.2) 11/16/20 04:06 AST 11 units/L (5-40) 11/16/20 04:06 ALT 9 units/L (7-56) 11/16/20 04:06 Alkaline Phosphatase 50 units/L (35-129) 11/16/20 04:06 Total Creatine Kinase 60 units/L (55-170) 11/13/20 15:45 Total Protein 6.2 g/dL (6.3-8.2) L D 11/16/20 04:06 Albumin 3.5 g/dL (3.9-5) L 11/16/20 04:06 Albumin/Globulin Ratio 1.3 % 11/16/20 04:06 Lipase 19 units/L (13-60) 11/13/20 10:24 Carcinoembryonic Ag 1.1 ng/mL (0.0-2.4) 11/14/20 04:45 Urine Color Yellow (Yellow) 11/13/20 12:57 Urine Turbidity Clear (Clear) 11/13/20 12:57 Urine pH 5.0 (5.0-7.0) 11/13/20 12:57 Ur Specific [place] 1.041 (1.003-1.030) H 11/13/20 12:57 Urine Protein <15 mg/dl mg/dL (Negative) 11/13/20 12:57 Urine Glucose (UA) Neg mg/dL (Negative) 11/13/20 12:57 Urine Ketones Tr mg/dL (Negative) 11/13/20 12:57 Urine Blood Neg (Negative) 11/13/20 12:57 Urine Nitrite Neg (Negative) 11/13/20 12:57 Urine Bilirubin Neg (Negative) 11/13/20 12:57 Urine Urobilinogen < 2.0 mg/dL (<2.0) 11/13/20 12:57 Ur Leukocyte Esterase Neg (Negative) 11/13/20 12:57 Urine WBC (Auto) 1.0 /HPF (0.0-6.0) 11/13/20 12:57 Urine RBC (Auto) 2.0 /HPF (0.0-6.0) 11/13/20 12:57 U Epithel Cells (Auto) < 1.0 /HPF (0-13.0) 11/13/20 12:57 Urine Mucus 2+ /HPF 11/13/20 12:57 Blood Type A POSITIVE 11/17/20 08:21 Antibody Screen Negative 11/17/20 08:21 June/IV: Voiding Method Toilet Active Medications - Current Medications Current Medications: Generic Name Dose Route Start Last Admin Trade Name Freq PRN Reason Stop Dose Admin Acetaminophen 650 mg 11/13/20 22:44 11/14/20 11:48 Acetaminophen 325 Mg Tab PO 650 mg Q4H PRN Administration Pain MILD(1-3)/Fever >100.5/[place] Enoxaparin Sodium 40 mg 11/14/20 22:00 11/18/20 00:31 Enoxaparin 40 Mg/0.4 Ml Inj SUB-Q Not Given QDAY@22[facility] Protocol Famotidine 20 mg 11/13/20 23:00 11/17/20 22:16 Famotidine 20 Mg/2 Ml Inj IV 20 mg BID ION Administration Guaifenesin 200 mg 11/14/20 23:26 11/15/20 00:12 Guaifenesin 100 Mg/5 Ml Oral Liqd PO 200 mg Q8H PRN Administration Cough Hydromorphone HCl 0.5 mg 11/13/20 19:26 11/13/20 19:43 Hydromorphone 1 Mg/1 Ml Inj IV 0.5 mg Q3H PRN Administration Pain , Severe (7-10) Dextrose/Sodium Chloride 1,000 mls @ 100 mls/hr 11/15/20 23:00 11/18/20 00:00 D5ns IV 100 mls/hr DIRECT ION Administration Morphine Sulfate 2 mg 11/13/20 18:38 11/13/20 18:47 Morphine 2 Mg/1 Ml Inj IV 2 mg Q4H PRN Administration Pain, Moderate (4-6) Ondansetron HCl 4 mg 11/13/20 22:44 Ondansetron 4 Mg/2 Ml Inj IV Q8H PRN Nausea And Vomiting Sodium Chloride 10 ml 11/14/20 08:00 11/17/20 22:17 Sodium Chloride 0.9% 10 Ml Flush Syringe IV 10 ml BID ION Administration Sodium Chloride 10 ml 11/13/20 22:44 11/17/20 13:22 Sodium Chloride 0.9% 10 Ml Flush Syringe IV 10 ml PRN PRN Administration LINE FLUSH
[2020-11-18] MEDS: FAMOTIDINE 20 MG/2 ML INJ IV SCH ×2 (09:16→23:26)
[2020-11-18] MEDS ORDERED: SUCCINYLCHOLINE CHLORIDE 200 MG/10 ML INJ MDV ONE (11:46)
[2020-11-18] MEDS ORDERED: LIDOCAINE MPF (2%) 20 MG/1 ML VIAL 5 ML ONE (11:46)
[2020-11-18] MEDS ORDERED: ROCURONIUM 50 MG/5 ML INJ IV ONE ×2 (11:46→14:29)
[2020-11-18] MEDS ORDERED: propofoL 200 MG/20 ML VIAL IV ONE (11:47)
[2020-11-18] MEDS ORDERED: fentaNYL 100 MCG/2 ML INJ ONE (11:47)
[2020-11-18] MEDS ORDERED: LACTATED RINGERS 1,000 ML ONE (11:51)
[2020-11-18] MEDS ORDERED: MIDAZOLAM 2 MG/2 ML INJ ONE (11:53)
[2020-11-18] MEDS ORDERED: KETAMINE/STERILE WATER 50 MG/ML SYRINGE ONE (11:54)
[2020-11-18] MEDS ORDERED: BUPIVACAINE/PF (0.25%) 2.5 MG/ML 30 ML VIAL INFILTRATI ONE (12:01)
[2020-11-18] MEDS ORDERED: LIDOCAINE (1%) 10 MG/1 ML VIAL 20 ML MDV ONE (12:01)
[2020-11-18] MEDS ORDERED: metroNIDAZOLE/NS 500 MG/100 ML 500 MG/100 ML BAG IV ONE (12:18)
[2020-11-18] MEDS ORDERED: ceFAZolin/Water 2 GM/20 ML 2 GM/20 ML SYRINGE IV ONE (12:18)
[2020-11-18] MEDS ORDERED: KETOROLAC 30 MG/1 ML INJ ONE (12:34)
[2020-11-18] MEDS ORDERED: SODIUM CHLORIDE P/F VIAL 10 ML 10 ML ONE (12:34)
[2020-11-18] MEDS ORDERED: ONDANSETRON 4 MG/2 ML INJ ONE (12:34)
[2020-11-18] MEDS ORDERED: dexAMETHasone 20 MG/5 ML VIAL ONE (12:34)
[2020-11-18] MEDS ORDERED: SODIUM CHLORIDE 0.9% IRR 1,500 ML BOTTLE IR ONE (13:30)
--- NOTE | 2020-11-18 14:47 | Anesthesia Day of Surgery ---
Anesthesia Day of Surgery - Day of Surgery Patient Examined: Yes Patient H&P Reviewed: Yes Patient is NPO: Yes
[2020-11-18] MEDS ORDERED: ONDANSETRON 4 MG/2 ML INJ IV PRN (15:00)
[2020-11-18] MEDS ORDERED: HYDROmorphone 1 MG/1 ML INJ IV PRN (15:00)
[2020-11-18] MEDS ORDERED: ceFAZolin 1 GM VIAL ONE (16:10)
[2020-11-18] MEDS ORDERED: SODIUM CHLORIDE 0.9% IRRIG SOLN 2000 ML IR ONE (17:46)
--- NOTE | 2020-11-18 18:15 | Post Operative Note ---
Pre-op diagnosis: splenic flexure colon cancer Post-op diagnosis: same Findings: 10 cm mass of the splenic flexure/distal. No obvious obstruction. No gross liver lesions Procedure: laparoscopic splenic flexure mobilization, partial omentectomy, left hemicolectomy Anesthesia: GETA, other (TAP BLOCK) Surgeon: HOA TEE Insights Manager: PABLO MARISCAL Estimated blood loss: 50-100ml Pathology: list (LEFT COLON) Specimen disposition: to lab Condition: stable Disposition: PACU
[2020-11-18] MEDS: HYDROmorphone 1 MG/1 ML INJ IV PRN ×4 (18:57→23:25)
--- NOTE | 2020-11-18 19:59 | Operative Report ---
Operative Report Operative Report: Date: 11/18/20 Pre-op diagnosis: splenic flexure colon cancer Post-op diagnosis: same Findings: 10 cm mass of the splenic flexure/distal. No obvious obstruction. No gross liver lesions Procedure: laparoscopic splenic flexure mobilization, partial omentectomy, left hemicolectomy Anesthesia: GETA, other (TAP BLOCK) Surgeon: HOA TEE Line Assigner: PABLO MARISCAL Estimated blood loss: 50-100ml Pathology: list (LEFT COLON) Specimen disposition: to lab Condition: stable HPI and indication: Patient is a 40-year-old male who presented to the hospital with acute abdominal pain. He was found to have a near obstructing colon mass at the splenic flexure concerning for malignancy. The patient underwent a colonoscopy which showed a malignant appearing mass at the splenic flexure that was not traversable with the endoscope. It was therefore recommended that the patient undergo surgical resection of the left colon. All risk, benefits, alternatives to surgery were discussed with the patient and questions answered. Consent was obtained for laparoscopic, possible open left colectomy, possible colostomy. Procedure in detail: Patient was identified in the preoperative area, taken back to the operating room and placed on the operating room table in supine position. After anesthesia was induced a June catheter was sterilely placed by the circulating nurse. An OG tube was placed by anesthesia. Both arms were tucked and all bony prominences padded appropriately. The abdomen was then prepped and draped the usual sterile fashion and a timeout performed. Patient was to receive a tap block at the end of the procedure. A 5 mm incision was made just above the umbilicus through which a Veress needle was inserted. The Veress needle positioning was confirmed using the saline drop test and the abdomen insufflated to 15 mmHg without incident. The Veress needle was removed and a 5 mm Optiview trocar placed through this incision. The abdomen was inspected and there was no underlying injury to any of the abdominal structures. An additional 5 mm right upper quadrant and right lower quadrant trocar was placed under direct visualization. I first started by identifying the omentum and retracting it cephalad and over the liver in order to identify the transverse colon. The transverse colon appeared grossly unremarkable until the splenic flexure was encountered. There was a hard indurated appearing mass at the splenic flexure. The cecum, ascending colon, remainder of the descending colon, sigmoid colon all appeared unremarkable and were decompressed. There was no obstructive signs. The small bowel was unremarkable. The liver was examined and no obvious metastatic lesions were seen. A left lower quadrant 5 mm instruction assistant principal trocar was placed under direct visualization. I started the dissection by mobilizing the left colon. The white line of Toldt was incised using a LigaSure. The colon was dissected from the lateral peritoneal attachments in an avascular plane. This dissection was taken up to the splenic flexure. I then turned my attention to mobilizing the sigmoid colon. Adhesions from the sigmoid colon to the lateral pelvic sidewall were dissected with great care using the LigaSure in an avascular plane. As the sigmoid colon was swept medially, the ureter was identified and remained protected. The retroperitoneal tissues remained on dilated. Once the left colon and sigmoid colon were mobilized I turned my attention to the splenic flexure. There were adhesions from the omentum to the spleen and left lateral abdominal wall. These were dissected using the LigaSure device. Once the omentum was completely freed the splenic flexure mass was more easily visualized. The lateral dissection was taken up to the splenic flexure and the splenocolic ligament was ligated. Once the splenic flexure dissection was complete I turned my attention to mobilizing the transverse and right colon. The lateral attachments to the ascending colon were dissected by incising the white line of Toldt and sweeping the colon medially. This was performed through the hepatic flexure. The omentum was then from the transverse colon using the LigaSure. There was an area of omentum that was indurated and attached to the splenic flexure mass. This omentum was left attached to the specimen and resected en bloc. Once colonic mobilization was completed, I decided to place a GelPort at the umbilicus. The 5 mm port was removed and a 7 cm midline skin incision was made and carried out around the umbilicus using a 10 blade. Dissection was carried down through subcutaneous tissue with electrocautery until the fascia was encountered. The fascia was incised with electrocautery while the abdomen was still insufflated and the fascia opened over 2 gloved fingers in order to complete the incision. The GelPort was placed in the usual fashion and used to facilitate hand assisted dissection. The mesentery was very fatty and it was challenging to identify vascular pedicles. Therefore using hand-assisted technique, the vascular pedicles were identified by palpation. I first started by dissecting the mesentery at the distal transection site. The sigmoidal artery was identified and the mesentery dissected out the root using the LigaSure. The mesentery was ligated up to the point of the colon and the colon was then transected using a KRISTEL 75 mm blue load stapler. I then turned my attention to the proximal transection point. The mesentery just to the left of the takeoff of the middle colic artery was ligated and the dissection taken up towards the colon. The colon was stapled using a Endo KRISTEL 60 mm blue load stapler x2. The mesentery was then ligated using LigaSure. Remaining retroperitoneal attachments to the specimen were taken down using a combination of blunt dissection by gently sweeping the colon and LigaSure. Remaining omental attachments to the specimen were also dissected using the LigaSure until the specimen was completely free. Once the specimen was completely dissected it was removed from the abdomen via the GelPort. The mass measured approximately 10 cm. Upon gross examination, the closest margin was the proximal margin at approximately 8 cm. There were several small lymph nodes in the mesentery. At this point we turned our attention to ensuring that the sigmoid colon and proximal transverse colon were mobilized enough in order to create an anastomosis. The proximal and distal colon laid in the mid abdomen in a [id number] fashion without tension. A [id number] functional end-to-end colocolonic anastomosis was then created in an extracorporeal fashion using an Endo KRISTEL 75 mm blue load stapler. The common channel was checked for hemostasis which was ensured. There was a small amount of very soft green stool in the proximal colon. The common channel was closed using a TA 60 stapler. The anastomosis was palpated and widely patent. A 3-0 silk crotch stitch was placed at the distal staple line. The anastomosis was seen to lay without tension. The staple line was oversewn using 3-0 silk interrupted Lembert sutures. A tongue of omentum was placed over top the anastomosis. The abdomen was then reinsufflated and irrigated. Hemostasis was very carefully ensured. A 19 Syriac Manolo drain was brought out via the right lower quadrant port and positioned over the area of the anastomosis and in the right paracolic gutter. It was sutured to the skin using a 2-0 nylon drain stitch. The abdomen was then desufflated and all ports removed. The midline fascia was closed using a running #1 PDS stitch. The subcutaneous tissue was irrigated and the wound closed in layered fashion. After hemostasis was ensured, the deep dermal layer was closed with interrupted 3-0 Vicryl stitches and the skin approximated using 4-0 Monocryl running subcuticular stitch. The remaining incisions were closed using 4-0 Monocryl subcuticular stitches. Dermabond was applied to all skin incisions. A 4 x 4 gauze was applied around the drain and secured with a Tegaderm. At the end of the case, all sponge, instrument, sharp counts were correct x2. The patient was awoken from anesthesia, the June catheter removed. He was taken to PACU in stable condition. The patient's fianc was updated.
[2020-11-18] MEDS: D5W/0.9% NACL 1,000 ML IV SCH ×2 (20:52)
[2020-11-18] MEDS: metroNIDAZOLE/NS 500 MG/100 ML 500 MG/100 ML BAG IV SCH (21:16)
[2020-11-19 04:03] LABS: Hematocrit 38.8 % (35.5-45.6); Hemoglobin 13.1 gm/dl (11.8-15.2); Mean Corpuscular HGB Conc 34 % (32-34); Mean Corpuscular Volume 86 fl (84-94); Platelet Count 282 K/mm3 (140-440); Red Blood Count 4.52 M/mm3 (3.65-5.03); Red Cell Distribution Width 13.5 % (13.2-15.2)
[2020-11-19 04:18] LABS: BUN/Creatinine Ratio 9; Blood Urea Nitrogen 6 mg/dL (9-20); Calcium 7.8 mg/dL (8.4-10.2); Hemolysis Index 7
[2020-11-19] MEDS: MORPHINE 2 MG/1 ML INJ IV PRN (04:20)
[2020-11-19] MEDS: metroNIDAZOLE/NS 500 MG/100 ML 500 MG/100 ML BAG IV SCH (04:59)
[2020-11-19 05:23] LABS: Band Neutrophils # (Manual) 0.5 K/mm3; Total Cells Counted 100
[2020-11-19 05:24] LABS: Platelet Estimate Consistent w Auto; RBC Morphology Normal
[2020-11-19] MEDS: HYDROmorphone 1 MG/1 ML INJ IV PRN ×4 (08:06→22:21)
[2020-11-19] MEDS: D5W/0.9% NACL 1,000 ML IV SCH ×2 (08:07→15:47)
[2020-11-19] MEDS: FAMOTIDINE 20 MG/2 ML INJ IV SCH ×2 (09:25→22:21)
--- NOTE | 2020-11-19 10:04 | Progress Note ---
Assessment and Plan Assessment and plan: Partial small bowel obstruction Colonic mass. CT abdomen shows mass around the splenic flexure with some lymph node spread. Colonoscopy showed large obstructing malignant appearing mass with necrotic appearing tissue as well around the area of the sigmoid colon Polycythemia Hyponatremia 11/18/2020. Patient has been n.p.o. after midnight with plans for hemicolectomy/tumor resection today. Follow-up [facility]. Patient will likely need adjuvant chemotherapy per oncology. Continue Lovenox as inpatient for DVT/PE prevention. 11/19/2020. Patient is s/p laparoscopic splenic flexure mobilization, partial omentectomy, left hemicolectomy for a resection of 10 cm mass of the splenic flexure/distal. No obvious obstruction. No gross liver lesions. Advance diet per surgery recommendations. Continue pain control, wound care supportive care History Interval history: No new issues overnight Hospitalist Physical - Constitutional Vitals: Temp Pulse Resp BP Pulse Ox 99.2 F 76 18 105/63 94 11/19/20 07:42 11/19/20 07:42 11/19/20 07:42 11/19/20 07:42 11/19/20 07:42 General appearance: Present: no acute distress, well-nourished - EENT Eyes: Present: PERRL, EOM intact ENT: hearing intact, clear oral mucosa, dentition normal - Neck Neck: Present: supple, normal ROM - Respiratory Respiratory effort: normal Respiratory: bilateral: CTA - Cardiovascular Rhythm: regular Heart Sounds: Present: S1 & S2. Absent: gallop, rub - Extremities Extremities: no ischemia, No edema, Full ROM - Abdominal General gastrointestinal: soft, non-tender, non-distended, normal bowel sounds - Integumentary Integumentary: Present: clear, warm, dry - Neurologic Neurologic: CNII-XII intact, moves all extremities Results - Labs CBC & Chem 7: 11/19/20 03:35 11/19/20 03:35 Labs: Laboratory Last Values WBC 24.0 K/mm3 (4.5-11.0) H 11/19/20 03:35 RBC 4.52 M/mm3 (3.65-5.03) 11/19/20 03:35 Hgb 13.1 gm/dl (11.8-15.2) 11/19/20 03:35 Hct 38.8 % (35.5-45.6) 11/19/20 03:35 MCV 86 fl (84-94) 11/19/20 03:35 MCH 29 pg (28-32) 11/19/20 03:35 MCHC 34 % (32-34) 11/19/20 03:35 RDW 13.5 % (13.2-15.2) 11/19/20 03:35 Plt Count 282 K/mm3 (140-440) 11/19/20 03:35 Lymph % (Auto) 23.6 % (13.4-35.0) 11/16/20 04:06 [place] % (Auto) 13.3 % (0.0-7.3) H 11/16/20 04:06 Eos % (Auto) 3.5 % (0.0-4.3) 11/16/20 04:06 Baso % (Auto) 0.5 % (0.0-1.8) 11/16/20 04:06 Lymph # (Auto) 1.5 K/mm3 (1.2-5.4) 11/16/20 04:06 [place] # (Auto) 0.9 K/mm3 (0.0-0.8) H 11/16/20 04:06 Eos # (Auto) 0.2 K/mm3 (0.0-0.4) 11/16/20 04:06 Baso # (Auto) 0.0 K/mm3 (0.0-0.1) 11/16/20 04:06 Add Manual Diff Complete 11/19/20 03:35 Total Counted 100 11/19/20 03:35 Seg Neutrophils % Wardrobe Consultant 11/19/20 03:35 Seg Neuts % (Manual) 94.0 % (40.0-70.0) H 11/19/20 03:35 Band Neutrophils % 2.0 % 11/19/20 03:35 Lymphocytes % (Manual) 2.0 % (13.4-35.0) L 11/19/20 03:35 Monocytes % (Manual) 2.0 % (0.0-7.3) 11/19/20 03:35 Nucleated RBC % Not Reportable 11/19/20 03:35 Seg Neutrophils # 3.8 K/mm3 (1.8-7.7) 11/16/20 04:06 Seg Neutrophils # Man 22.6 K/mm3 (1.8-7.7) H 11/19/20 03:35 Band Neutrophils # 0.5 K/mm3 11/19/20 03:35 Lymphocytes # (Manual) 0.5 K/mm3 (1.2-5.4) L 11/19/20 03:35 Abs React Lymphs (Man) 0.0 K/mm3 11/19/20 03:35 Monocytes # (Manual) 0.5 K/mm3 (0.0-0.8) 11/19/20 03:35 Eosinophils # (Manual) 0.0 K/mm3 (0.0-0.4) 11/19/20 03:35 Basophils # (Manual) 0.0 K/mm3 (0.0-0.1) 11/19/20 03:35 Metamyelocytes # 0.0 K/mm3 11/19/20 03:35 Myelocytes # 0.0 K/mm3 11/19/20 03:35 Promyelocytes # 0.0 K/mm3 11/19/20 03:35 Blast Cells # 0.0 K/mm3 11/19/20 03:35 WBC Morphology Not Reportable 11/19/20 03:35 Hypersegmented Neuts Not Reportable 11/19/20 03:35 Hyposegmented Neuts Not Reportable 11/19/20 03:35 Hypogranular Neuts Not Reportable 11/19/20 03:35 Smudge Cells Not Reportable 11/19/20 03:35 Toxic Granulation Not Reportable 11/19/20 03:35 Toxic Vacuolation Not Reportable 11/19/20 03:35 Dohle Bodies Not Reportable 11/19/20 03:35 Pelger-Huet Anomaly Not Reportable 11/19/20 03:35 Eugenia Rods Not Reportable 11/19/20 03:35 Platelet Estimate Consistent w auto 11/19/20 03:35 Clumped Platelets Not Reportable 11/19/20 03:35 Plt Clumps, EDTA Not Reportable 11/19/20 03:35 Large Platelets Not Reportable 11/19/20 03:35 Giant Platelets Not Reportable 11/19/20 03:35 Platelet Satelliting Not Reportable 11/19/20 03:35 Plt Morphology Comment Not Reportable 11/19/20 03:35 RBC Morphology Normal 11/19/20 03:35 Dimorphic RBCs Not Reportable 11/19/20 03:35 Polychromasia Not Reportable 11/19/20 03:35 Hypochromasia Not Reportable 11/19/20 03:35 Poikilocytosis Not Reportable 11/19/20 03:35 Anisocytosis Not Reportable 11/19/20 03:35 Microcytosis Not Reportable 11/19/20 03:35 Macrocytosis Not Reportable 11/19/20 03:35 Spherocytes Not Reportable 11/19/20 03:35 Pappenheimer Bodies Not Reportable 11/19/20 03:35 Sickle Cells Not Reportable 11/19/20 03:35 Target Cells Not Reportable 11/19/20 03:35 Tear Drop Cells Not Reportable 11/19/20 03:35 Ovalocytes Not Reportable 11/19/20 03:35 Helmet Cells Not Reportable 11/19/20 03:35 Hicks-Ashford Bodies Not Reportable 11/19/20 03:35 [place] Rings Not Reportable 11/19/20 03:35 Vinay Cells Not Reportable 11/19/20 03:35 Bite Cells Not Reportable 11/19/20 03:35 Crenated Cell Not Reportable 11/19/20 03:35 Elliptocytes Not Reportable 11/19/20 03:35 Acanthocytes (Spur) Not Reportable 11/19/20 03:35 Rouleaux Not Reportable 11/19/20 03:35 Hemoglobin C Crystals Not Reportable 11/19/20 03:35 Schistocytes Not Reportable 11/19/20 03:35 Malaria parasites Not Reportable 11/19/20 03:35 Blade Bodies Not Reportable 11/19/20 03:35 Hem Pathologist Commnt No 11/19/20 03:35 Sodium 139 mmol/L (137-145) 11/19/20 03:35 Potassium 4.2 mmol/L (3.6-5.0) 11/19/20 03:35 Chloride 104.8 mmol/L (98-107) 11/19/20 03:35 Carbon Dioxide 26 mmol/L (22-30) 11/19/20 03:35 Anion Gap 12 mmol/L 11/19/20 03:35 BUN 6 mg/dL (9-20) L 11/19/20 03:35 Creatinine 0.7 mg/dL (0.8-1.3) L 11/19/20 03:35 Estimated GFR > 60 ml/min 11/19/20 03:35 BUN/Creatinine Ratio 9 % 11/19/20 03:35 Glucose 215 mg/dL (75-100) H 11/19/20 03:35 Hemoglobin A1c 5.1 % (4-6) 11/14/20 04:45 Calcium 7.8 mg/dL (8.4-10.2) L 11/19/20 03:35 Magnesium 2.30 mg/dL (1.7-2.3) 11/13/20 15:45 Total Bilirubin 0.20 mg/dL (0.1-1.2) 11/16/20 04:06 AST 11 units/L (5-40) 11/16/20 04:06 ALT 9 units/L (7-56) 11/16/20 04:06 Alkaline Phosphatase 50 units/L (35-129) 11/16/20 04:06 Total Creatine Kinase 60 units/L (55-170) 11/13/20 15:45 Total Protein 6.2 g/dL (6.3-8.2) L D 11/16/20 04:06 Albumin 3.5 g/dL (3.9-5) L 11/16/20 04:06 Albumin/Globulin Ratio 1.3 % 11/16/20 04:06 Lipase 19 units/L (13-60) 11/13/20 10:24 Carcinoembryonic Ag 1.1 ng/mL (0.0-2.4) 11/14/20 04:45 Urine Color Yellow (Yellow) 11/13/20 12:57 Urine Turbidity Clear (Clear) 11/13/20 12:57 Urine pH 5.0 (5.0-7.0) 11/13/20 12:57 Ur Specific [place] 1.041 (1.003-1.030) H 11/13/20 12:57 Urine Protein <15 mg/dl mg/dL (Negative) 11/13/20 12:57 Urine Glucose (UA) Neg mg/dL (Negative) 11/13/20 12:57 Urine Ketones Tr mg/dL (Negative) 11/13/20 12:57 Urine Blood Neg (Negative) 11/13/20 12:57 Urine Nitrite Neg (Negative) 11/13/20 12:57 Urine Bilirubin Neg (Negative) 11/13/20 12:57 Urine Urobilinogen < 2.0 mg/dL (<2.0) 11/13/20 12:57 Ur Leukocyte Esterase Neg (Negative) 11/13/20 12:57 Urine WBC (Auto) 1.0 /HPF (0.0-6.0) 11/13/20 12:57 Urine RBC (Auto) 2.0 /HPF (0.0-6.0) 11/13/20 12:57 U Epithel Cells (Auto) < 1.0 /HPF (0-13.0) 11/13/20 12:57 Urine Mucus 2+ /HPF 11/13/20 12:57 Blood Type A POSITIVE 11/17/20 08:21 Antibody Screen Negative 11/17/20 08:21 June/IV: Voiding Method Urinal Active Medications - Current Medications Current Medications: Generic Name Dose Route Start Last Admin Trade Name Freq PRN Reason Stop Dose Admin Acetaminophen 650 mg 11/13/20 22:44 11/14/20 11:48 Acetaminophen 325 Mg Tab PO 650 mg Q4H PRN Administration Pain MILD(1-3)/Fever >100.5/[place] Enoxaparin Sodium 40 mg 11/14/20 22:00 11/18/20 23:27 Enoxaparin 40 Mg/0.4 Ml Inj SUB-Q 40 mg QDAY@2200 ION Administration Protocol Famotidine 20 mg 11/13/20 23:00 11/18/20 23:26 Famotidine 20 Mg/2 Ml Inj IV 20 mg BID ION Administration Guaifenesin 200 mg 11/14/20 23:26 11/15/20 00:12 Guaifenesin 100 Mg/5 Ml Oral Liqd PO 200 mg Q8H PRN Administration Cough Hydromorphone HCl 0.5 mg 11/13/20 19:26 11/19/20 08:06 Hydromorphone 1 Mg/1 Ml Inj IV 0.5 mg Q3H PRN Administration Pain , Severe (7-10) Hydromorphone HCl 0.5 mg 11/18/20 19:09 11/18/20 19:17 Hydromorphone 1 Mg/1 Ml Inj IV 11/19/20 19:08 0.5 mg Q10MIN PRN Administration Pain , Severe (7-10) Dextrose/Sodium Chloride 1,000 mls @ 100 mls/hr 11/15/20 23:00 11/19/20 08:07 D5ns IV 100 mls/hr DIRECT ION Administration Morphine Sulfate 2 mg 11/13/20 18:38 11/19/20 04:20 Morphine 2 Mg/1 Ml Inj IV 2 mg Q4H PRN Administration Pain, Moderate (4-6) Ondansetron HCl 4 mg 11/13/20 22:44 Ondansetron 4 Mg/2 Ml Inj IV Q8H PRN Nausea And Vomiting Sodium Chloride 10 ml 11/14/20 08:00 11/19/20 07:43 Sodium Chloride 0.9% 10 Ml Flush Syringe IV Not Given BID ION Sodium Chloride 10 ml 11/13/20 22:44 11/17/20 13:22 Sodium Chloride 0.9% 10 Ml Flush Syringe IV 10 ml PRN PRN Administration LINE FLUSH
--- NOTE | 2020-11-19 13:26 | Post Anesthesia Evaluation ---
- Post Anesthesia Evaluation Patient Participated: Yes Airway Patent: Yes Stable Respiratory Function: Yes Nausea/Vomiting: Yes Temp > 96.8F: Yes Pain Manageable: Yes (with some pain meds) Adequeate Hydration: Yes Anesthesia Complications: No Patient on Ventilator: No Other Comments: haven't ambulated next
[2020-11-19] MEDS ORDERED: oxyCODONE /ACETAMINOPHEN 5-325MG TAB PO PRN (14:38)
--- NOTE | 2020-11-19 14:52 | Progress Note ---
Assessment and Plan 40 yo M s/p laparoscopic splenic flexure mobilization, partial omentectomy, left hemicolectomy, POD 1 1. 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 Several small polyps, snared and retrieved. Plan: 1. Clear liquid diet - do not advance 2. CEA pending 3. DVT ppx - lovenox 4. prn pain control - add toradol IV q8 and percocet to regimen. Will increase dilaudid to 1mg IV q3 for severe pain. 5. Await bowel function 6. Repeat CBC, BMP in am. Elevated WBC likely reactive to surgery. 7. IS/pulm toilet 8. OOB/ambulaye 9. Abdominal binder 10. Path pending Thank you, please call with questions Subjective Date of service: 11/19/20 Narrative: Pt seen and examined. c/o soreness near abdominal incisions. No f/c. No n/v. Tolerating clears. No BM or flatus Objective Vital Signs - 12hr 11/19/20 11/19/20 11/19/20 04:46 07:42 11:28 Temperature 98.7 F 99.2 F 98.5 F Pulse Rate 77 76 71 Respiratory 18 18 18 Rate Blood Pressure 105/63 105/65 Blood Pressure 120/66 [Right] O2 Sat by Pulse 93 94 94 Oximetry - General physical appearance Narrative Exam: Gen: AAOx3. NAD CV: s1, S2+ resp: even and unlabored Abd: soft, ND, mild TTP near incisions. Incisions c/d/i. MADAI drain serosang Ext: no c/c/e - Labs 11/19/20 03:35 11/19/20 03:35 Diabetes panel 11/19/20 Range/Units 03:35 Sodium 139 (137-145) mmol/L Potassium 4.2 (3.6-5.0) mmol/L Chloride 104.8 (98-107) mmol/L Carbon Dioxide 26 (22-30) mmol/L BUN 6 L (9-20) mg/dL Creatinine 0.7 L (0.8-1.3) mg/dL Glucose 215 H (75-100) mg/dL Calcium 7.8 L (8.4-10.2) mg/dL Calcium panel 11/19/20 Range/Units 03:35 Calcium 7.8 L (8.4-10.2) mg/dL Pituitary panel 11/19/20 Range/Units 03:35 Sodium 139 (137-145) mmol/L Potassium 4.2 (3.6-5.0) mmol/L Chloride 104.8 (98-107) mmol/L Carbon Dioxide 26 (22-30) mmol/L BUN 6 L (9-20) mg/dL Creatinine 0.7 L (0.8-1.3) mg/dL Glucose 215 H (75-100) mg/dL Calcium 7.8 L (8.4-10.2) mg/dL Adrenal panel 11/19/20 Range/Units 03:35 Sodium 139 (137-145) mmol/L Potassium 4.2 (3.6-5.0) mmol/L Chloride 104.8 (98-107) mmol/L Carbon Dioxide 26 (22-30) mmol/L BUN 6 L (9-20) mg/dL Creatinine 0.7 L (0.8-1.3) mg/dL Glucose 215 H (75-100) mg/dL Calcium 7.8 L (8.4-10.2) mg/dL
[2020-11-19] MEDS: KETOROLAC 30 MG/1 ML INJ IV SCH ×2 (15:46→22:21)
[2020-11-19] MEDS: ENOXAPARIN 40 MG/0.4 ML INJ SUB-Q SCH (22:26)
[2020-11-20] MEDS: D5W/0.9% NACL 1,000 ML IV SCH ×2 (03:22→11:41)
[2020-11-20] MEDS: HYDROmorphone 1 MG/1 ML INJ IV PRN ×2 (03:23→17:21)
[2020-11-20] MEDS: KETOROLAC 30 MG/1 ML INJ IV SCH ×3 (06:13→22:00)
[2020-11-20] MEDS ORDERED: oxyCODONE /ACETAMINOPHEN 5-325MG TAB PO PRN (08:00)
[2020-11-20] MEDS: FAMOTIDINE 20 MG/2 ML INJ IV SCH ×2 (08:08→22:00)
[2020-11-20 08:54] LABS: Hematocrit 36.2 % (35.5-45.6); Hemoglobin 11.8 gm/dl (11.8-15.2); Mean Corpuscular HGB Conc 33 % (32-34); Mean Corpuscular Volume 88 fl (84-94); Platelet Count 240 K/mm3 (140-440); Red Cell Distribution Width 13.7 % (13.2-15.2)
[2020-11-20 09:04] LABS: Blood Urea Nitrogen 7 mg/dL (9-20); Calcium 8.2 mg/dL (8.4-10.2); Hemolysis Index 4
[2020-11-20 09:24] LABS: BUN/Creatinine Ratio 10
--- NOTE | 2020-11-20 09:48 | Progress Note ---
Assessment and Plan Assessment and plan: Partial small bowel obstruction Colonic mass. CT abdomen shows mass around the splenic flexure with some lymph node spread. Colonoscopy showed large obstructing malignant appearing mass with necrotic appearing tissue as well around the area of the sigmoid colon Polycythemia Hyponatremia 11/18/2020. Patient has been n.p.o. after midnight with plans for hemicolectomy/tumor resection today. Follow-up CEA. Patient will likely need adjuvant chemotherapy per oncology. Continue Lovenox as inpatient for DVT/PE prevention. 11/19/2020. Patient is s/p laparoscopic splenic flexure mobilization, partial omentectomy, left hemicolectomy for a resection of 10 cm mass of the splenic flexure/distal. No obvious obstruction. No gross liver lesions. Advance diet per surgery recommendations. Continue pain control, wound care supportive care 11/20/2020. Continue medications for pain control. Continue clear liquid diet per surgery recommendations. Await return of bowel function. Patient with no flatus this morning. Out of bed and ambulate. Follow-up pathology of colon mass. Follow-up CEA History Interval history: No new issues overnight Hospitalist Physical - Constitutional Vitals: Temp Pulse Resp BP Pulse Ox 99.3 F 70 16 115/68 94 11/20/20 07:03 11/20/20 07:03 11/20/20 07:03 11/20/20 07:03 11/20/20 07:03 General appearance: Present: no acute distress, well-nourished - EENT Eyes: Present: PERRL, EOM intact ENT: hearing intact, clear oral mucosa, dentition normal - Neck Neck: Present: supple, normal ROM - Respiratory Respiratory effort: normal Respiratory: bilateral: CTA - Cardiovascular Rhythm: regular Heart Sounds: Present: S1 & S2. Absent: gallop, rub - Extremities Extremities: no ischemia, No edema, Full ROM - Abdominal General gastrointestinal: soft, non-tender, non-distended, normal bowel sounds - Integumentary Integumentary: Present: clear, warm, dry - Neurologic Neurologic: CNII-XII intact, moves all extremities Results - Labs CBC & Chem 7: 11/20/20 08:08 11/20/20 08:08 Labs: Laboratory Last Values WBC 12.7 K/mm3 (4.5-11.0) H 11/20/20 08:08 RBC 4.10 M/mm3 (3.65-5.03) 11/20/20 08:08 Hgb 11.8 gm/dl (11.8-15.2) 11/20/20 08:08 Hct 36.2 % (35.5-45.6) 11/20/20 08:08 MCV 88 fl (84-94) 11/20/20 08:08 MCH 29 pg (28-32) 11/20/20 08:08 MCHC 33 % (32-34) 11/20/20 08:08 RDW 13.7 % (13.2-15.2) 11/20/20 08:08 Plt Count 240 K/mm3 (140-440) 11/20/20 08:08 Lymph % (Auto) 23.6 % (13.4-35.0) 11/16/20 04:06 [place] % (Auto) 13.3 % (0.0-7.3) H 11/16/20 04:06 Eos % (Auto) 3.5 % (0.0-4.3) 11/16/20 04:06 Baso % (Auto) 0.5 % (0.0-1.8) 11/16/20 04:06 Lymph # (Auto) 1.5 K/mm3 (1.2-5.4) 11/16/20 04:06 [place] # (Auto) 0.9 K/mm3 (0.0-0.8) H 11/16/20 04:06 Eos # (Auto) 0.2 K/mm3 (0.0-0.4) 11/16/20 04:06 Baso # (Auto) 0.0 K/mm3 (0.0-0.1) 11/16/20 04:06 Add Manual Diff Complete 11/19/20 03:35 Total Counted 100 11/19/20 03:35 Seg Neutrophils % Welding Lead Burner 11/19/20 03:35 Seg Neuts % (Manual) 94.0 % (40.0-70.0) H 11/19/20 03:35 Band Neutrophils % 2.0 % 11/19/20 03:35 Lymphocytes % (Manual) 2.0 % (13.4-35.0) L 11/19/20 03:35 Monocytes % (Manual) 2.0 % (0.0-7.3) 11/19/20 03:35 Nucleated RBC % Not Reportable 11/19/20 03:35 Seg Neutrophils # 3.8 K/mm3 (1.8-7.7) 11/16/20 04:06 Seg Neutrophils # Man 22.6 K/mm3 (1.8-7.7) H 11/19/20 03:35 Band Neutrophils # 0.5 K/mm3 11/19/20 03:35 Lymphocytes # (Manual) 0.5 K/mm3 (1.2-5.4) L 11/19/20 03:35 Abs React Lymphs (Man) 0.0 K/mm3 11/19/20 03:35 Monocytes # (Manual) 0.5 K/mm3 (0.0-0.8) 11/19/20 03:35 Eosinophils # (Manual) 0.0 K/mm3 (0.0-0.4) 11/19/20 03:35 Basophils # (Manual) 0.0 K/mm3 (0.0-0.1) 11/19/20 03:35 Metamyelocytes # 0.0 K/mm3 11/19/20 03:35 Myelocytes # 0.0 K/mm3 11/19/20 03:35 Promyelocytes # 0.0 K/mm3 11/19/20 03:35 Blast Cells # 0.0 K/mm3 11/19/20 03:35 WBC Morphology Not Reportable 11/19/20 03:35 Hypersegmented Neuts Not Reportable 11/19/20 03:35 Hyposegmented Neuts Not Reportable 11/19/20 03:35 Hypogranular Neuts Not Reportable 11/19/20 03:35 Smudge Cells Not Reportable 11/19/20 03:35 Toxic Granulation Not Reportable 11/19/20 03:35 Toxic Vacuolation Not Reportable 11/19/20 03:35 Dohle Bodies Not Reportable 11/19/20 03:35 Pelger-Huet Anomaly Not Reportable 11/19/20 03:35 Eugenia Rods Not Reportable 11/19/20 03:35 Platelet Estimate Consistent w auto 11/19/20 03:35 Clumped Platelets Not Reportable 11/19/20 03:35 Plt Clumps, EDTA Not Reportable 11/19/20 03:35 Large Platelets Not Reportable 11/19/20 03:35 Giant Platelets Not Reportable 11/19/20 03:35 Platelet Satelliting Not Reportable 11/19/20 03:35 Plt Morphology Comment Not Reportable 11/19/20 03:35 RBC Morphology Normal 11/19/20 03:35 Dimorphic RBCs Not Reportable 11/19/20 03:35 Polychromasia Not Reportable 11/19/20 03:35 Hypochromasia Not Reportable 11/19/20 03:35 Poikilocytosis Not Reportable 11/19/20 03:35 Anisocytosis Not Reportable 11/19/20 03:35 Microcytosis Not Reportable 11/19/20 03:35 Macrocytosis Not Reportable 11/19/20 03:35 Spherocytes Not Reportable 11/19/20 03:35 Pappenheimer Bodies Not Reportable 11/19/20 03:35 Sickle Cells Not Reportable 11/19/20 03:35 Target Cells Not Reportable 11/19/20 03:35 Tear Drop Cells Not Reportable 11/19/20 03:35 Ovalocytes Not Reportable 11/19/20 03:35 Helmet Cells Not Reportable 11/19/20 03:35 Hicks-Sutton Bodies Not Reportable 11/19/20 03:35 Bullard Rings Not Reportable 11/19/20 03:35 Vinay Cells Not Reportable 11/19/20 03:35 Bite Cells Not Reportable 11/19/20 03:35 Crenated Cell Not Reportable 11/19/20 03:35 Elliptocytes Not Reportable 11/19/20 03:35 Acanthocytes (Spur) Not Reportable 11/19/20 03:35 Rouleaux Not Reportable 11/19/20 03:35 Hemoglobin C Crystals Not Reportable 11/19/20 03:35 Schistocytes Not Reportable 11/19/20 03:35 Malaria parasites Not Reportable 11/19/20 03:35 Blade Bodies Not Reportable 11/19/20 03:35 Hem Pathologist Commnt No 11/19/20 03:35 Sodium 139 mmol/L (137-145) 11/20/20 08:08 Potassium 3.6 mmol/L (3.6-5.0) 11/20/20 08:08 Chloride 106.7 mmol/L (98-107) 11/20/20 08:08 Carbon Dioxide 26 mmol/L (22-30) 11/20/20 08:08 Anion Gap 10 mmol/L 11/20/20 08:08 BUN 7 mg/dL (9-20) L 11/20/20 08:08 Creatinine 0.7 mg/dL (0.8-1.3) L 11/20/20 08:08 Estimated GFR > 60 ml/min 11/20/20 08:08 BUN/Creatinine Ratio 10 % 11/20/20 08:08 Glucose 110 mg/dL (75-100) H 11/20/20 08:08 Hemoglobin A1c 5.1 % (4-6) 11/14/20 04:45 Calcium 8.2 mg/dL (8.4-10.2) L 11/20/20 08:08 Magnesium 2.30 mg/dL (1.7-2.3) 11/13/20 15:45 Total Bilirubin 0.20 mg/dL (0.1-1.2) 11/16/20 04:06 AST 11 units/L (5-40) 11/16/20 04:06 ALT 9 units/L (7-56) 11/16/20 04:06 Alkaline Phosphatase 50 units/L (35-129) 11/16/20 04:06 Total Creatine Kinase 60 units/L (55-170) 11/13/20 15:45 Total Protein 6.2 g/dL (6.3-8.2) L D 11/16/20 04:06 Albumin 3.5 g/dL (3.9-5) L 11/16/20 04:06 Albumin/Globulin Ratio 1.3 % 11/16/20 04:06 Lipase 19 units/L (13-60) 11/13/20 10:24 Carcinoembryonic Ag 1.1 ng/mL (0.0-2.4) 11/14/20 04:45 Urine Color Yellow (Yellow) 11/13/20 12:57 Urine Turbidity Clear (Clear) 11/13/20 12:57 Urine pH 5.0 (5.0-7.0) 11/13/20 12:57 Ur Specific [place] 1.041 (1.003-1.030) H 11/13/20 12:57 Urine Protein <15 mg/dl mg/dL (Negative) 11/13/20 12:57 Urine Glucose (UA) Neg mg/dL (Negative) 11/13/20 12:57 Urine Ketones Tr mg/dL (Negative) 11/13/20 12:57 Urine Blood Neg (Negative) 11/13/20 12:57 Urine Nitrite Neg (Negative) 11/13/20 12:57 Urine Bilirubin Neg (Negative) 11/13/20 12:57 Urine Urobilinogen < 2.0 mg/dL (<2.0) 11/13/20 12:57 Ur Leukocyte Esterase Neg (Negative) 11/13/20 12:57 Urine WBC (Auto) 1.0 /HPF (0.0-6.0) 11/13/20 12:57 Urine RBC (Auto) 2.0 /HPF (0.0-6.0) 11/13/20 12:57 U Epithel Cells (Auto) < 1.0 /HPF (0-13.0) 11/13/20 12:57 Urine Mucus 2+ /HPF 11/13/20 12:57 Blood Type A POSITIVE 11/17/20 08:21 Antibody Screen Negative 11/17/20 08:21 June/IV: Voiding Method Urinal Active Medications - Current Medications Current Medications: Generic Name Dose Route Start Last Admin Trade Name Freq PRN Reason Stop Dose Admin Acetaminophen 650 mg 11/13/20 22:44 11/14/20 11:48 Acetaminophen 325 Mg Tab PO 650 mg Q4H PRN Administration Pain MILD(1-3)/Fever >100.5/[place] Enoxaparin Sodium 40 mg 11/14/20 22:00 11/19/20 22:26 Enoxaparin 40 Mg/0.4 Ml Inj SUB-Q 40 mg QDAY@2200 ION Administration Protocol Famotidine 20 mg 11/13/20 23:00 11/20/20 08:08 Famotidine 20 Mg/2 Ml Inj IV 20 mg BID ION Administration Guaifenesin 200 mg 11/14/20 23:26 11/15/20 00:12 Guaifenesin 100 Mg/5 Ml Oral Liqd PO 200 mg Q8H PRN Administration Cough Hydromorphone HCl 1 mg 11/19/20 14:39 11/20/20 03:23 Hydromorphone 1 Mg/1 Ml Inj IV 1 mg Q3H PRN Administration Pain , Severe (7-10) Dextrose/Sodium Chloride 1,000 mls @ 100 mls/hr 11/15/20 23:00 11/20/20 03:22 D5ns IV 100 mls/hr DIRECT ION Administration Ketorolac Tromethamine 30 mg 11/19/20 15:00 11/20/20 06:13 Ketorolac 30 Mg/1 Ml Inj IV 11/24/20 14:59 30 mg Q8H ION Administration Ondansetron HCl 4 mg 11/13/20 22:44 Ondansetron 4 Mg/2 Ml Inj IV Q8H PRN Nausea And Vomiting Oxycodone/Acetaminophen 2 tab 11/20/20 08:00 11/20/20 09:10 Oxycodone /Acetaminophen 5-325mg Tab PO 2 tab Q4H PRN Administration Pain, Moderate (4-6) Sodium Chloride 10 ml 11/14/20 08:00 11/20/20 08:09 Sodium Chloride 0.9% 10 Ml Flush Syringe IV 10 ml BID ION Administration Sodium Chloride 10 ml 11/13/20 22:44 11/17/20 13:22 Sodium Chloride 0.9% 10 Ml Flush Syringe IV 10 ml PRN PRN Administration LINE FLUSH
--- NOTE | 2020-11-20 10:03 | Progress Note ---
Assessment and Plan 40 yo M s/p laparoscopic splenic flexure mobilization, partial omentectomy, left hemicolectomy, POD 2 1. splenic flexure colon mass Pt stable. Clinically doing well. VSS. WBC trending down. Plan: 1. adv to FLD in am tomorrow 2. CEA - 1.1 3. DVT ppx - lovenox 4. prn pain control - toradol IV q8, percocet prn, and dilaudid IV 5. IS/pulm toilet 6. OOB/ambulate 7. Abdominal binder 8. Path pending 9. Madai drain to bulb suction Thank you, please call with questions Subjective Date of service: 11/20/20 Narrative: Pt seen and examined. No acute complaints. Pain is improved and patient able to ambulate in room. No f/c. Tolerating clear liquids. Passing flatus. No BM. No n/n/v Objective Vital Signs - 12hr 11/19/20 11/20/20 11/20/20 23:27 04:42 07:03 Temperature 98.6 F 98.4 F 99.3 F Pulse Rate 82 74 70 Respiratory 18 18 16 Rate Blood Pressure 115/68 Blood Pressure 136/76 140/76 [Right] O2 Sat by Pulse 94 93 94 Oximetry - General physical appearance Narrative Exam: Gen: AAOx3. NAD CV: s1, S2+ resp: even and unlabored Abd: soft, ND, mild TTP near midline incision. Incisions c/d/i. MADAI drain serosang. Abd binder in place Ext: no c/c/e MADAI - 250cc/24 h serosang - Labs 11/20/20 08:08 11/20/20 08:08 Diabetes panel 11/20/20 Range/Units 08:08 Sodium 139 (137-145) mmol/L Potassium 3.6 (3.6-5.0) mmol/L Chloride 106.7 (98-107) mmol/L Carbon Dioxide 26 (22-30) mmol/L BUN 7 L (9-20) mg/dL Creatinine 0.7 L (0.8-1.3) mg/dL Glucose 110 H (75-100) mg/dL Calcium 8.2 L (8.4-10.2) mg/dL Calcium panel 11/20/20 Range/Units 08:08 Calcium 8.2 L (8.4-10.2) mg/dL Pituitary panel 11/20/20 Range/Units 08:08 Sodium 139 (137-145) mmol/L Potassium 3.6 (3.6-5.0) mmol/L Chloride 106.7 (98-107) mmol/L Carbon Dioxide 26 (22-30) mmol/L BUN 7 L (9-20) mg/dL Creatinine 0.7 L (0.8-1.3) mg/dL Glucose 110 H (75-100) mg/dL Calcium 8.2 L (8.4-10.2) mg/dL Adrenal panel 11/20/20 Range/Units 08:08 Sodium 139 (137-145) mmol/L Potassium 3.6 (3.6-5.0) mmol/L Chloride 106.7 (98-107) mmol/L Carbon Dioxide 26 (22-30) mmol/L BUN 7 L (9-20) mg/dL Creatinine 0.7 L (0.8-1.3) mg/dL Glucose 110 H (75-100) mg/dL Calcium 8.2 L (8.4-10.2) mg/dL
[2020-11-20] MEDS: ENOXAPARIN 40 MG/0.4 ML INJ SUB-Q SCH (22:00)
[2020-11-21] MEDS: KETOROLAC 30 MG/1 ML INJ IV SCH ×3 (07:24→23:00)
[2020-11-21] MEDS: FAMOTIDINE 20 MG/2 ML INJ IV SCH ×2 (08:31→22:00)
--- NOTE | 2020-11-21 09:29 | Progress Note ---
Assessment and Plan Assessment and plan: Partial small bowel obstruction Colonic mass. CT abdomen shows mass around the splenic flexure with some lymph node spread. Colonoscopy showed large obstructing malignant appearing mass with necrotic appearing tissue as well around the area of the sigmoid colon Polycythemia Hyponatremia 11/18/2020. Patient has been n.p.o. after midnight with plans for hemicolectomy/tumor resection today. Follow-up CEA. Patient will likely need adjuvant chemotherapy per oncology. Continue Lovenox as inpatient for DVT/PE prevention. 11/19/2020. Patient is s/p laparoscopic splenic flexure mobilization, partial omentectomy, left hemicolectomy for a resection of 10 cm mass of the splenic flexure/distal. No obvious obstruction. No gross liver lesions. Advance diet per surgery recommendations. Continue pain control, wound care supportive care 11/20/2020. Continue medications for pain control. Continue clear liquid diet per surgery recommendations. Await return of bowel function. Patient with no flatus this morning. Out of bed and ambulate. Follow-up pathology of colon mass. Follow-up CEA. 11/21/2020. Surgery to advance diet to full liquids today. Continue pain control with Toradol, Percocet and Dilaudid. Encourage out of bed and ambulation. MADAI drain to bulb suction. Follow-up pathology of colon mass. History Interval history: No new issues overnight Hospitalist Physical - Constitutional Vitals: Temp Pulse Resp BP Pulse Ox 98.4 F 79 18 127/74 96 11/21/20 07:22 11/21/20 07:22 11/21/20 08:37 11/21/20 07:22 11/21/20 07:22 General appearance: Present: no acute distress, well-nourished - EENT Eyes: Present: PERRL, EOM intact ENT: hearing intact, clear oral mucosa, dentition normal - Neck Neck: Present: supple, normal ROM - Respiratory Respiratory effort: normal Respiratory: bilateral: CTA - Cardiovascular Rhythm: regular Heart Sounds: Present: S1 & S2. Absent: gallop, rub - Extremities Extremities: no ischemia, No edema, Full ROM - Abdominal General gastrointestinal: soft, non-tender, non-distended, normal bowel sounds - Integumentary Integumentary: Present: clear, warm, dry - Neurologic Neurologic: CNII-XII intact, moves all extremities Results - Labs CBC & Chem 7: 11/20/20 08:08 11/20/20 08:08 Labs: Laboratory Last Values WBC 12.7 K/mm3 (4.5-11.0) H 11/20/20 08:08 RBC 4.10 M/mm3 (3.65-5.03) 11/20/20 08:08 Hgb 11.8 gm/dl (11.8-15.2) 11/20/20 08:08 Hct 36.2 % (35.5-45.6) 11/20/20 08:08 MCV 88 fl (84-94) 11/20/20 08:08 MCH 29 pg (28-32) 11/20/20 08:08 MCHC 33 % (32-34) 11/20/20 08:08 RDW 13.7 % (13.2-15.2) 11/20/20 08:08 Plt Count 240 K/mm3 (140-440) 11/20/20 08:08 Lymph % (Auto) 23.6 % (13.4-35.0) 11/16/20 04:06 Mccone % (Auto) 13.3 % (0.0-7.3) H 11/16/20 04:06 Eos % (Auto) 3.5 % (0.0-4.3) 11/16/20 04:06 Baso % (Auto) 0.5 % (0.0-1.8) 11/16/20 04:06 Lymph # (Auto) 1.5 K/mm3 (1.2-5.4) 11/16/20 04:06 Mccone # (Auto) 0.9 K/mm3 (0.0-0.8) H 11/16/20 04:06 Eos # (Auto) 0.2 K/mm3 (0.0-0.4) 11/16/20 04:06 Baso # (Auto) 0.0 K/mm3 (0.0-0.1) 11/16/20 04:06 Add Manual Diff Complete 11/19/20 03:35 Total Counted 100 11/19/20 03:35 Seg Neutrophils % Multifold Operator 11/19/20 03:35 Seg Neuts % (Manual) 94.0 % (40.0-70.0) H 11/19/20 03:35 Band Neutrophils % 2.0 % 11/19/20 03:35 Lymphocytes % (Manual) 2.0 % (13.4-35.0) L 11/19/20 03:35 Monocytes % (Manual) 2.0 % (0.0-7.3) 11/19/20 03:35 Nucleated RBC % Not Reportable 11/19/20 03:35 Seg Neutrophils # 3.8 K/mm3 (1.8-7.7) 11/16/20 04:06 Seg Neutrophils # Man 22.6 K/mm3 (1.8-7.7) H 11/19/20 03:35 Band Neutrophils # 0.5 K/mm3 11/19/20 03:35 Lymphocytes # (Manual) 0.5 K/mm3 (1.2-5.4) L 11/19/20 03:35 Abs React Lymphs (Man) 0.0 K/mm3 11/19/20 03:35 Monocytes # (Manual) 0.5 K/mm3 (0.0-0.8) 11/19/20 03:35 Eosinophils # (Manual) 0.0 K/mm3 (0.0-0.4) 11/19/20 03:35 Basophils # (Manual) 0.0 K/mm3 (0.0-0.1) 11/19/20 03:35 Metamyelocytes # 0.0 K/mm3 11/19/20 03:35 Myelocytes # 0.0 K/mm3 11/19/20 03:35 Promyelocytes # 0.0 K/mm3 11/19/20 03:35 Blast Cells # 0.0 K/mm3 11/19/20 03:35 WBC Morphology Not Reportable 11/19/20 03:35 Hypersegmented Neuts Not Reportable 11/19/20 03:35 Hyposegmented Neuts Not Reportable 11/19/20 03:35 Hypogranular Neuts Not Reportable 11/19/20 03:35 Smudge Cells Not Reportable 11/19/20 03:35 Toxic Granulation Not Reportable 11/19/20 03:35 Toxic Vacuolation Not Reportable 11/19/20 03:35 Dohle Bodies Not Reportable 11/19/20 03:35 Pelger-Huet Anomaly Not Reportable 11/19/20 03:35 Eugenia Rods Not Reportable 11/19/20 03:35 Platelet Estimate Consistent w auto 11/19/20 03:35 Clumped Platelets Not Reportable 11/19/20 03:35 Plt Clumps, EDTA Not Reportable 11/19/20 03:35 Large Platelets Not Reportable 11/19/20 03:35 Giant Platelets Not Reportable 11/19/20 03:35 Platelet Satelliting Not Reportable 11/19/20 03:35 Plt Morphology Comment Not Reportable 11/19/20 03:35 RBC Morphology Normal 11/19/20 03:35 Dimorphic RBCs Not Reportable 11/19/20 03:35 Polychromasia Not Reportable 11/19/20 03:35 Hypochromasia Not Reportable 11/19/20 03:35 Poikilocytosis Not Reportable 11/19/20 03:35 Anisocytosis Not Reportable 11/19/20 03:35 Microcytosis Not Reportable 11/19/20 03:35 Macrocytosis Not Reportable 11/19/20 03:35 Spherocytes Not Reportable 11/19/20 03:35 Pappenheimer Bodies Not Reportable 11/19/20 03:35 Sickle Cells Not Reportable 11/19/20 03:35 Target Cells Not Reportable 11/19/20 03:35 Tear Drop Cells Not Reportable 11/19/20 03:35 Ovalocytes Not Reportable 11/19/20 03:35 Helmet Cells Not Reportable 11/19/20 03:35 [place] Bodies Not Reportable 11/19/20 03:35 [place] Rings Not Reportable 11/19/20 03:35 Glennie Cells Not Reportable 11/19/20 03:35 Bite Cells Not Reportable 11/19/20 03:35 Crenated Cell Not Reportable 11/19/20 03:35 Elliptocytes Not Reportable 11/19/20 03:35 Acanthocytes (Spur) Not Reportable 11/19/20 03:35 Rouleaux Not Reportable 11/19/20 03:35 Hemoglobin C Crystals Not Reportable 11/19/20 03:35 Schistocytes Not Reportable 11/19/20 03:35 Malaria parasites Not Reportable 11/19/20 03:35 Blade Bodies Not Reportable 11/19/20 03:35 Hem Pathologist Commnt No 11/19/20 03:35 Sodium 139 mmol/L (137-145) 11/20/20 08:08 Potassium 3.6 mmol/L (3.6-5.0) 11/20/20 08:08 Chloride 106.7 mmol/L (98-107) 11/20/20 08:08 Carbon Dioxide 26 mmol/L (22-30) 11/20/20 08:08 Anion Gap 10 mmol/L 11/20/20 08:08 BUN 7 mg/dL (9-20) L 11/20/20 08:08 Creatinine 0.7 mg/dL (0.8-1.3) L 11/20/20 08:08 Estimated GFR > 60 ml/min 11/20/20 08:08 BUN/Creatinine Ratio 10 % 11/20/20 08:08 Glucose 110 mg/dL (75-100) H 11/20/20 08:08 Hemoglobin A1c 5.1 % (4-6) 11/14/20 04:45 Calcium 8.2 mg/dL (8.4-10.2) L 11/20/20 08:08 Magnesium 2.30 mg/dL (1.7-2.3) 11/13/20 15:45 Total Bilirubin 0.20 mg/dL (0.1-1.2) 11/16/20 04:06 AST 11 units/L (5-40) 11/16/20 04:06 ALT 9 units/L (7-56) 11/16/20 04:06 Alkaline Phosphatase 50 units/L (35-129) 11/16/20 04:06 Total Creatine Kinase 60 units/L (55-170) 11/13/20 15:45 Total Protein 6.2 g/dL (6.3-8.2) L D 11/16/20 04:06 Albumin 3.5 g/dL (3.9-5) L 11/16/20 04:06 Albumin/Globulin Ratio 1.3 % 11/16/20 04:06 Lipase 19 units/L (13-60) 11/13/20 10:24 Carcinoembryonic Ag 1.1 ng/mL (0.0-2.4) 11/14/20 04:45 Urine Color Yellow (Yellow) 11/13/20 12:57 Urine Turbidity Clear (Clear) 11/13/20 12:57 Urine pH 5.0 (5.0-7.0) 11/13/20 12:57 Ur Specific [place] 1.041 (1.003-1.030) H 11/13/20 12:57 Urine Protein <15 mg/dl mg/dL (Negative) 11/13/20 12:57 Urine Glucose (UA) Neg mg/dL (Negative) 11/13/20 12:57 Urine Ketones Tr mg/dL (Negative) 11/13/20 12:57 Urine Blood Neg (Negative) 11/13/20 12:57 Urine Nitrite Neg (Negative) 11/13/20 12:57 Urine Bilirubin Neg (Negative) 11/13/20 12:57 Urine Urobilinogen < 2.0 mg/dL (<2.0) 11/13/20 12:57 Ur Leukocyte Esterase Neg (Negative) 11/13/20 12:57 Urine WBC (Auto) 1.0 /HPF (0.0-6.0) 11/13/20 12:57 Urine RBC (Auto) 2.0 /HPF (0.0-6.0) 11/13/20 12:57 U Epithel Cells (Auto) < 1.0 /HPF (0-13.0) 11/13/20 12:57 Urine Mucus 2+ /HPF 11/13/20 12:57 Blood Type A POSITIVE 11/17/20 08: Antibody Screen Negative 11/17/20 08:21 June/IV: Voiding Method Urinal Active Medications - Current Medications Current Medications: Generic Name Dose Route Start Last Admin Trade Name Freq PRN Reason Stop Dose Admin Acetaminophen 650 mg 11/13/20 22:44 11/14/20 11:48 Acetaminophen 325 Mg Tab PO 650 mg Q4H PRN Administration Pain MILD(1-3)/Fever >100.5/[place] Enoxaparin Sodium 40 mg 11/14/20 22:00 11/20/20 22:00 Enoxaparin 40 Mg/0.4 Ml Inj SUB-Q 40 mg QDAY@2200 ION Administration Protocol Famotidine 20 mg 11/13/20 23:00 11/21/20 08:31 Famotidine 20 Mg/2 Ml Inj IV 20 mg BID ION Administration Guaifenesin 200 mg 11/14/20 23:26 11/15/20 00:12 Guaifenesin 100 Mg/5 Ml Oral Liqd PO 200 mg Q8H PRN Administration Cough Hydromorphone HCl 1 mg 11/19/20 14:39 11/20/20 17:21 Hydromorphone 1 Mg/1 Ml Inj IV 1 mg Q3H PRN Administration Pain , Severe (7-10) Dextrose/Sodium Chloride 1,000 mls @ 100 mls/hr 11/15/20 23:00 11/20/20 11:41 D5ns IV 100 mls/hr DIRECT ION Administration Ketorolac Tromethamine 30 mg 11/19/20 15:00 11/21/20 07:24 Ketorolac 30 Mg/1 Ml Inj IV 11/24/20 14:59 30 mg Q8H ION Administration Ondansetron HCl 4 mg 11/13/20 22:44 11/20/20 17:21 Ondansetron 4 Mg/2 Ml Inj IV 4 mg Q8H PRN Administration Nausea And Vomiting Oxycodone/Acetaminophen 2 tab 11/20/20 08:00 11/20/20 09:10 Oxycodone /Acetaminophen 5-325mg Tab PO 2 tab Q4H PRN Administration Pain, Moderate (4-6) Sodium Chloride 10 ml 11/14/20 08:00 11/21/20 08:31 Sodium Chloride 0.9% 10 Ml Flush Syringe IV 10 ml BID ION Administration Sodium Chloride 10 ml 11/13/20 22:44 11/17/20 13:22 Sodium Chloride 0.9% 10 Ml Flush Syringe IV 10 ml PRN PRN Administration LINE FLUSH Nutrition/Malnutrition Assess - Dietary Evaluation Nutrition/Malnutrition Findings: Nutrition Notes Start: 11/20/20 12:01 Freq: Status: Active Protocol: Document 11/20/20 12:01 LM (Rec: 11/20/20 12:16 LM [id number]) Nutrition Notes Need for Assessment generated from: LOS Initial or Follow up Assessment Other Pertinent Diagnosis SBO, colonic mass, polycythemia Current Diet Clear liquid Labs/Tests BUN 7 Pertinent Medications D5NS at 100ml/hr Height 5 ft 9 in Weight 90.72 kg [place] Body Weight (kg) 72.72 BMI 29.5 Weight Status Overweight Subjective/Other Information Screen for LOS. Pt stated he is tolerating clear liquids. Pt stated that he has not been eating well since he experienced symptoms last Monday but was eating normal prior. Pt stated he has lost 20 lb in 1 year due to cutting out sugary beverages. Pt denied N/V/D/C. Pt stated he was prediabetic, eats one large meal a day, eats out a lot. Encouraged pt to make small healthy changes (adding vegetables, eating out less, ect). Burn Absent Trauma Absent GI Symptoms None Current % PO Poor (25-49%) Minimum of two criteria No physical signs of malnutrition Energy Intake (non-severe) <75% Estimated Energy Requirement >7 days #1 Nutrition Diagnosis Inadequate oral intake Etiology SBO, colonic mass As Evidenced by Signs and Symptoms Pt on clear liquid diet Is patient on ventilator? No Is Patient Ambulatory and/or Out of Bed Yes REE-([facility]-ambulatory/OOB) [ 2362.854 [id number]] Kcal/Kg value to use for calculation 23 Approximate Energy Requirements Using 7 kcal/Kg Calculation Used for Recommendations Kcal/kg Additional Notes Protein: 58-73g (0.8-1g/kg using IBW) Fluids: 1ml/kcal Nutrition Intervention Change Diet Order: Continue clear liquid and advance diet when medically feasible Add Supplement/Snack (indicate name/kcal Ensure Clear BID /protein ) Provides kCal: 480 Provides Protein (gm) 16 Teaching Recipient Significant Other Goal #1 Advance diet Goal #2 ONS tolerance Anticipated Discharge Needs: Unable to determine Follow-Up By: 11/24/20 Additional Comments F/U for PO/ONS intakes
[2020-11-21] MEDS: D5W/0.9% NACL 1,000 ML IV SCH (12:49)
--- NOTE | 2020-11-21 15:14 | Progress Note ---
Assessment and Plan POD#3 s/p laparoscopic left hemicolectomy for splenic flexure mass. Afebrile and stable. Progressing well and tolerating diet. Will advance to soft diet. If continues to do well, will hopefully discharge tomorrow and remove MADAI drain prior to discharge. Subjective Date of service: 11/21/20 Patient Reports: Positive: no new complaints (no acute events overnight. Pt says he is passing flatus, no BM yet. tolerating full liquids and pain is controlled. ) Objective Vital Signs - 12hr 11/21/20 11/21/20 11/21/20 05:11 07:22 08:37 Temperature 98.5 F 98.4 F Pulse Rate 64 79 Respiratory 18 16 18 Rate Respiratory Rate [Lower Abdomen] Blood Pressure 98/65 127/74 O2 Sat by Pulse 96 96 Oximetry 11/21/20 10:00 Temperature Pulse Rate Respiratory Rate Respiratory 20 Rate [Lower Abdomen] Blood Pressure O2 Sat by Pulse Oximetry - General physical appearance well developed, no distress, no pain - Respiratory normal expansion, normal respiratory effort - Abdomen soft, other (incision c/d/i, MADAI drain serous, appropriately tender to palpation) - Labs 11/20/20 08:08 11/20/20 08:08
[2020-11-21] MEDS: ENOXAPARIN 40 MG/0.4 ML INJ SUB-Q SCH (22:00)
[2020-11-22] MEDS: FAMOTIDINE 20 MG/2 ML INJ IV SCH (07:55)
[2020-11-22] MEDS: KETOROLAC 30 MG/1 ML INJ IV SCH (07:59)
--- NOTE | 2020-11-22 08:16 | Progress Note ---
Assessment and Plan Assessment and plan: Partial small bowel obstruction Colonic mass. CT abdomen shows mass around the splenic flexure with some lymph node spread. Colonoscopy showed large obstructing malignant appearing mass with necrotic appearing tissue as well around the area of the sigmoid colon Polycythemia Hyponatremia 11/18/2020. Patient has been n.p.o. after midnight with plans for hemicolectomy/tumor resection today. Follow-up CEA. Patient will likely need adjuvant chemotherapy per oncology. Continue Lovenox as inpatient for DVT/PE prevention. 11/19/2020. Patient is s/p laparoscopic splenic flexure mobilization, partial omentectomy, left hemicolectomy for a resection of 10 cm mass of the splenic flexure/distal. No obvious obstruction. No gross liver lesions. Advance diet per surgery recommendations. Continue pain control, wound care supportive care 11/20/2020. Continue medications for pain control. Continue clear liquid diet per surgery recommendations. Await return of bowel function. Patient with no flatus this morning. Out of bed and ambulate. Follow-up pathology of colon mass. Follow-up CEA. 11/21/2020. Surgery to advance diet to full liquids today. Continue pain control with Toradol, Percocet and Dilaudid. Encourage out of bed and ambulation. MADAI drain to bulb suction. Follow-up pathology of colon mass. 11/22/20. Advance diet per Surgery recommendations. Continue pain control. Encourage ambulation. MADAI drain to bulb suction. Follow-up pathology of colon mass. History Interval history: No new issues overnight Hospitalist Physical - Constitutional Vitals: Temp Pulse Resp BP Pulse Ox 99.2 F 68 18 135/85 93 11/22/20 05:38 11/22/20 05:38 11/22/20 05:38 11/22/20 05:38 11/22/20 05:38 General appearance: Present: no acute distress, well-nourished - EENT Eyes: Present: PERRL, EOM intact ENT: hearing intact, clear oral mucosa, dentition normal - Neck Neck: Present: supple, normal ROM - Respiratory Respiratory effort: normal Respiratory: bilateral: CTA - Cardiovascular Rhythm: regular Heart Sounds: Present: S1 & S2. Absent: gallop, rub - Extremities Extremities: no ischemia, No edema, Full ROM - Abdominal General gastrointestinal: soft, non-tender, non-distended, normal bowel sounds - Integumentary Integumentary: Present: clear, warm, dry - Neurologic Neurologic: CNII-XII intact, moves all extremities Results - Labs CBC & Chem 7: 11/20/20 08:08 11/20/20 08:08 Labs: Laboratory Last Values WBC 12.7 K/mm3 (4.5-11.0) H 11/20/20 08:08 RBC 4.10 M/mm3 (3.65-5.03) 11/20/20 08:08 Hgb 11.8 gm/dl (11.8-15.2) 11/20/20 08:08 Hct 36.2 % (35.5-45.6) 11/20/20 08:08 MCV 88 fl (84-94) 11/20/20 08:08 MCH 29 pg (28-32) 11/20/20 08:08 MCHC 33 % (32-34) 11/20/20 08:08 RDW 13.7 % (13.2-15.2) 11/20/20 08:08 Plt Count 240 K/mm3 (140-440) 11/20/20 08:08 Lymph % (Auto) 23.6 % (13.4-35.0) 11/16/20 04:06 Forrest % (Auto) 13.3 % (0.0-7.3) H 11/16/20 04:06 Eos % (Auto) 3.5 % (0.0-4.3) 11/16/20 04:06 Baso % (Auto) 0.5 % (0.0-1.8) 11/16/20 04:06 Lymph # (Auto) 1.5 K/mm3 (1.2-5.4) 11/16/20 04:06 Forrest # (Auto) 0.9 K/mm3 (0.0-0.8) H 11/16/20 04:06 Eos # (Auto) 0.2 K/mm3 (0.0-0.4) 11/16/20 04:06 Baso # (Auto) 0.0 K/mm3 (0.0-0.1) 11/16/20 04:06 Add Manual Diff Complete 11/19/20 03:35 Total Counted 100 11/19/20 03:35 Seg Neutrophils % Service Engine Repairer 11/19/20 03:35 Seg Neuts % (Manual) 94.0 % (40.0-70.0) H 11/19/20 03:35 Band Neutrophils % 2.0 % 11/19/20 03:35 Lymphocytes % (Manual) 2.0 % (13.4-35.0) L 11/19/20 03:35 Monocytes % (Manual) 2.0 % (0.0-7.3) 11/19/20 03:35 Nucleated RBC % Not Reportable 11/19/20 03:35 Seg Neutrophils # 3.8 K/mm3 (1.8-7.7) 11/16/20 04:06 Seg Neutrophils # Man 22.6 K/mm3 (1.8-7.7) H 11/19/20 03:35 Band Neutrophils # 0.5 K/mm3 11/19/20 03:35 Lymphocytes # (Manual) 0.5 K/mm3 (1.2-5.4) L 11/19/20 03:35 Abs React Lymphs (Man) 0.0 K/mm3 11/19/20 03:35 Monocytes # (Manual) 0.5 K/mm3 (0.0-0.8) 11/19/20 03:35 Eosinophils # (Manual) 0.0 K/mm3 (0.0-0.4) 11/19/20 03:35 Basophils # (Manual) 0.0 K/mm3 (0.0-0.1) 11/19/20 03:35 Metamyelocytes # 0.0 K/mm3 11/19/20 03:35 Myelocytes # 0.0 K/mm3 11/19/20 03:35 Promyelocytes # 0.0 K/mm3 11/19/20 03:35 Blast Cells # 0.0 K/mm3 11/19/20 03:35 WBC Morphology Not Reportable 11/19/20 03:35 Hypersegmented Neuts Not Reportable 11/19/20 03:35 Hyposegmented Neuts Not Reportable 11/19/20 03:35 Hypogranular Neuts Not Reportable 11/19/20 03:35 Smudge Cells Not Reportable 11/19/20 03:35 Toxic Granulation Not Reportable 11/19/20 03:35 Toxic Vacuolation Not Reportable 11/19/20 03:35 Dohle Bodies Not Reportable 11/19/20 03:35 Pelger-Huet Anomaly Not Reportable 11/19/20 03:35 Eugenia Rods Not Reportable 11/19/20 03:35 Platelet Estimate Consistent w auto 11/19/20 03:35 Clumped Platelets Not Reportable 11/19/20 03:35 Plt Clumps, EDTA Not Reportable 11/19/20 03:35 Large Platelets Not Reportable 11/19/20 03:35 Giant Platelets Not Reportable 11/19/20 03:35 Platelet Satelliting Not Reportable 11/19/20 03:35 Plt Morphology Comment Not Reportable 11/19/20 03:35 RBC Morphology Normal 11/19/20 03:35 Dimorphic RBCs Not Reportable 11/19/20 03:35 Polychromasia Not Reportable 11/19/20 03:35 Hypochromasia Not Reportable 11/19/20 03:35 Poikilocytosis Not Reportable 11/19/20 03:35 Anisocytosis Not Reportable 11/19/20 03:35 Microcytosis Not Reportable 11/19/20 03:35 Macrocytosis Not Reportable 11/19/20 03:35 Spherocytes Not Reportable 11/19/20 03:35 Pappenheimer Bodies Not Reportable 11/19/20 03:35 Sickle Cells Not Reportable 11/19/20 03:35 Target Cells Not Reportable 11/19/20 03:35 Tear Drop Cells Not Reportable 11/19/20 03:35 Ovalocytes Not Reportable 11/19/20 03:35 Helmet Cells Not Reportable 11/19/20 03:35 Hicks-Jacumba Bodies Not Reportable 11/19/20 03:35 [place] Rings Not Reportable 11/19/20 03:35 Quinton Cells Not Reportable 11/19/20 03:35 Bite Cells Not Reportable 11/19/20 03:35 Crenated Cell Not Reportable 11/19/20 03:35 Elliptocytes Not Reportable 11/19/20 03:35 Acanthocytes (Spur) Not Reportable 11/19/20 03:35 Rouleaux Not Reportable 11/19/20 03:35 Hemoglobin C Crystals Not Reportable 11/19/20 03:35 Schistocytes Not Reportable 11/19/20 03:35 Malaria parasites Not Reportable 11/19/20 03:35 Blade Bodies Not Reportable 11/19/20 03:35 Hem Pathologist Commnt No 11/19/20 03:35 Sodium 139 mmol/L (137-145) 11/20/20 08:08 Potassium 3.6 mmol/L (3.6-5.0) 11/20/20 08:08 Chloride 106.7 mmol/L (98-107) 11/20/20 08:08 Carbon Dioxide 26 mmol/L (22-30) 11/20/20 08:08 Anion Gap 10 mmol/L 11/20/20 08:08 BUN 7 mg/dL (9-20) L 11/20/20 08:08 Creatinine 0.7 mg/dL (0.8-1.3) L 11/20/20 08:08 Estimated GFR > 60 ml/min 11/20/20 08:08 BUN/Creatinine Ratio 10 % 11/20/20 08:08 Glucose 110 mg/dL (75-100) H 11/20/20 08:08 Hemoglobin A1c 5.1 % (4-6) 11/14/20 04:45 Calcium 8.2 mg/dL (8.4-10.2) L 11/20/20 08:08 Magnesium 2.30 mg/dL (1.7-2.3) 11/13/20 15:45 Total Bilirubin 0.20 mg/dL (0.1-1.2) 11/16/20 04:06 AST 11 units/L (5-40) 11/16/20 04:06 ALT 9 units/L (7-56) 11/16/20 04:06 Alkaline Phosphatase 50 units/L (35-129) 11/16/20 04:06 Total Creatine Kinase 60 units/L (55-170) 11/13/20 15:45 Total Protein 6.2 g/dL (6.3-8.2) L D 11/16/20 04:06 Albumin 3.5 g/dL (3.9-5) L 11/16/20 04:06 Albumin/Globulin Ratio 1.3 % 11/16/20 04:06 Lipase 19 units/L (13-60) 11/13/20 10:24 Carcinoembryonic Ag 1.1 ng/mL (0.0-2.4) 11/14/20 04:45 Urine Color Yellow (Yellow) 11/13/20 12:57 Urine Turbidity Clear (Clear) 11/13/20 12:57 Urine pH 5.0 (5.0-7.0) 11/13/20 12:57 Ur Specific [place] 1.041 (1.003-1.030) H 11/13/20 12:57 Urine Protein <15 mg/dl mg/dL (Negative) 11/13/20 12:57 Urine Glucose (UA) Neg mg/dL (Negative) 11/13/20 12:57 Urine Ketones Tr mg/dL (Negative) 11/13/20 12:57 Urine Blood Neg (Negative) 11/13/20 12:57 Urine Nitrite Neg (Negative) 11/13/20 12:57 Urine Bilirubin Neg (Negative) 11/13/20 12:57 Urine Urobilinogen < 2.0 mg/dL (<2.0) 11/13/20 12:57 Ur Leukocyte Esterase Neg (Negative) 11/13/20 12:57 Urine WBC (Auto) 1.0 /HPF (0.0-6.0) 11/13/20 12:57 Urine RBC (Auto) 2.0 /HPF (0.0-6.0) 11/13/20 12:57 U Epithel Cells (Auto) < 1.0 /HPF (0-13.0) 11/13/20 12:57 Urine Mucus 2+ /HPF 11/13/20 12:57 Blood Type A POSITIVE 11/17/20 08:21 Antibody Screen Negative 11/17/20 08:21 June/IV: Voiding Method Urinal Active Medications - Current Medications Current Medications: Generic Name Dose Route Start Last Admin Trade Name Freq PRN Reason Stop Dose Admin Acetaminophen 650 mg 11/13/20 22:44 11/14/20 11:48 Acetaminophen 325 Mg Tab PO 650 mg Q4H PRN Administration Pain MILD(1-3)/Fever >100.5/[place] Enoxaparin Sodium 40 mg 11/14/20 22:00 11/21/20 22:00 Enoxaparin 40 Mg/0.4 Ml Inj SUB-Q 40 mg QDAY@2200 ION Administration Protocol Famotidine 20 mg 11/13/20 23:00 11/22/20 07:55 Famotidine 20 Mg/2 Ml Inj IV 20 mg BID ION Administration Guaifenesin 200 mg 11/14/20 23:26 11/15/20 00:12 Guaifenesin 100 Mg/5 Ml Oral Liqd PO 200 mg Q8H PRN Administration Cough Hydromorphone HCl 1 mg 11/19/20 14:39 11/20/20 17:21 Hydromorphone 1 Mg/1 Ml Inj IV 1 mg Q3H PRN Administration Pain , Severe (7-10) Dextrose/Sodium Chloride 1,000 mls @ 100 mls/hr 11/15/20 23:00 11/21/20 12:49 D5ns IV 100 mls/hr DIRECT ION Administration Ketorolac Tromethamine 30 mg 11/19/20 15:00 11/22/20 07:59 Ketorolac 30 Mg/1 Ml Inj IV 11/24/20 14:59 30 mg Q8H ION Administration Ondansetron HCl 4 mg 11/13/20 22:44 11/20/20 17:21 Ondansetron 4 Mg/2 Ml Inj IV 4 mg Q8H PRN Administration Nausea And Vomiting Oxycodone/Acetaminophen 2 tab 11/20/20 08:00 11/20/20 09:10 Oxycodone /Acetaminophen 5-325mg Tab PO 2 tab Q4H PRN Administration Pain, Moderate (4-6) Sodium Chloride 10 ml 11/14/20 08:00 11/22/20 07:56 Sodium Chloride 0.9% 10 Ml Flush Syringe IV 10 ml BID ION Administration Sodium Chloride 10 ml 11/13/20 22:44 11/17/20 13:22 Sodium Chloride 0.9% 10 Ml Flush Syringe IV 10 ml PRN PRN Administration LINE FLUSH Nutrition/Malnutrition Assess - Dietary Evaluation Nutrition/Malnutrition Findings: Nutrition Notes Start: 11/20/20 12:01 Freq: Status: Active Protocol: Document 11/20/20 12:01 LM (Rec: 11/20/20 12:16 LM [id number]) Nutrition Notes Need for Assessment generated from: LOS Initial or Follow up Assessment Other Pertinent Diagnosis SBO, colonic mass, polycythemia Current Diet Clear liquid Labs/Tests BUN 7 Pertinent Medications D5NS at 100ml/hr Height 5 ft 9 in Weight 90.72 kg [place] Body Weight (kg) 72.72 BMI 29.5 Weight Status Overweight Subjective/Other Information Screen for LOS. Pt stated he is tolerating clear liquids. Pt stated that he has not been eating well since he experienced symptoms last Monday but was eating normal prior. Pt stated he has lost 20 lb in 1 year due to cutting out sugary beverages. Pt denied N/V/D/C. Pt stated he was prediabetic, eats one large meal a day, eats out a lot. Encouraged pt to make small healthy changes (adding vegetables, eating out less, ect). Burn Absent Trauma Absent GI Symptoms None Current % PO Poor (25-49%) Minimum of two criteria No physical signs of malnutrition Energy Intake (non-severe) <75% Estimated Energy Requirement >7 days #1 Nutrition Diagnosis Inadequate oral intake Etiology SBO, colonic mass As Evidenced by Signs and Symptoms Pt on clear liquid diet Is patient on ventilator? No Is Patient Ambulatory and/or Out of Bed Yes REE-([facility]-ambulatory/OOB) [ 2362.854 NUTR.[id number]] Kcal/Kg value to use for calculation 23 Approximate Energy Requirements Using 7 kcal/Kg Calculation Used for Recommendations Kcal/kg Additional Notes Protein: 58-73g (0.8-1g/kg using IBW) Fluids: 1ml/kcal Nutrition Intervention Change Diet Order: Continue clear liquid and advance diet when medically feasible Add Supplement/Snack (indicate name/kcal Ensure Clear BID /protein ) Provides kCal: 480 Provides Protein (gm) 16 Teaching Recipient Significant Other Goal #1 Advance diet Goal #2 ONS tolerance Anticipated Discharge Needs: Unable to determine Follow-Up By: 11/24/20 Additional Comments F/U for PO/ONS intakes
--- NOTE | 2020-11-22 14:13 | Progress Note ---
Assessment and Plan POD#4 s/p laparoscopic left hemicolectomy for splenic flexure mass. Afebrile and stable. Progressing well and tolerating diet. Pt can be discharged to home on soft diet. Pt instructed to follow up with Dr. Ahmadi in the next 7-10 days. [phone] Subjective Date of service: 11/22/20 Narrative: No acute events overnight. Pt tolerating soft diet with no nausea or vomiting. Passing flatus no bowel movement as yet. Pain is controlled and ambulating. Objective Vital Signs - 12hr 11/22/20 11/22/20 11/22/20 05:38 07:59 12:03 Temperature 99.2 F 98.5 F Pulse Rate 68 61 Respiratory 18 18 20 Rate Blood Pressure 135/85 130/82 O2 Sat by Pulse 93 97 Oximetry - General physical appearance well developed, well nourished, no distress, no pain - Respiratory normal expansion, normal respiratory effort - Abdomen soft, not distended, other (incision c/d/i, MADAI drain serous. removed.) - Labs 11/20/20 08:08 11/20/20 08:08
[2020-11-22 14:24] VITALS: BP 129/63
--- NOTE | 2020-11-23 07:39 | Discharge Summary ---
Providers - Providers Date of Admission: 11/13/20 19:20 Date of discharge: 11/23/20 Attending physician: FREDI SANDERSON 11/13/20 Consult to Case Management [CONS] Routine Services Needed at Discharge: Home Health Services Foil Cutter Notified:: cm notified 11/13/20 13:31 Consult to Physician [CONS] Urgent Comment: Consulting Provider: JERARDO JAIME Physician Instructions: Reason For Exam: colon ca, obstruction 11/13/20 13:32 Consult to Physician [CONS] Urgent Comment: Consulting Provider: HOA TEE Physician Instructions: Reason For Exam: sbo 11/16/20 09:04 Consult to Physician [CONS] Routine Comment: Consulting Provider: RJ WELLER Physician Instructions: Reason For Exam: Colon cancer Primary care physician: MARGIN TRIMMER Hospitalization Reason for admission: abd pain Condition: Stable Hospital course: 40-year-old male with no past medical history presented to the emergency room with 4-day history of cramping abdominal pain. Patient stated the pain was diffuse, started suddenly and gradually got worse. Prior to this he was healthy without any problems with eating or having bowel movements. The pain was intermittent. The pain was associated with nausea and nonbilious/nonbloody emesis. Patient stated that he has been having constipation for the past 4 days and tried taking a laxative but did not have any relief. Patient received CT scan of the abdomen which revealed mass around the splenic flexure with some lymph nodes. The patient was admitted with diagnosis of partial small bowel obstruction, colonic mass, hyponatremia. The patient was seen by surgery and GI in consultation. Patient underwent colonoscopy which revealed findings below Large obstructing malignant appearing mass with necrotic appearing tissue as well around the area of the sigmoid colon. This was tattooed with 2 cc of spot ink. cold forceps used to obtain biopsies of the mass * 2 semisessile polyps in the rectosigmoid colon. Larger one was 8 mm in diameter and removed by hot snare polypectomy. Smaller one was 6 mm in diameter removed with cold snare polypectomy * 5 mm semisessile polyp in the sigmoid colon removed with cold snare polypectomy * Remainder of exam was unremarkable Hospital course: 11/18/2020. Patient has been n.p.o. after midnight with plans for hemicolectomy/tumor resection today. Follow-up CEA. Patient will likely need adjuvant chemotherapy per oncology. Continue Lovenox as inpatient for DVT/PE prevention. 11/19/2020. Patient is s/p laparoscopic splenic flexure mobilization, partial omentectomy, left hemicolectomy for a resection of 10 cm mass of the splenic flexure/distal. No obvious obstruction. No gross liver lesions. Advance diet per surgery recommendations. Continue pain control, wound care supportive care 11/20/2020. Continue medications for pain control. Continue clear liquid diet per surgery recommendations. Await return of bowel function. Patient with no flatus this morning. Out of bed and ambulate. Follow-up pathology of colon mass. Follow-up CEA. 11/21/2020. Surgery to advance diet to full liquids today. Continue pain control with Toradol, Percocet and Dilaudid. Encourage out of bed and ambulation. MADAI drain to bulb suction. Follow-up pathology of colon mass. 11/22/20. Advance diet per Surgery recommendations. Continue pain control. Encourage ambulation. MADAI drain to bulb suction. Follow-up pathology of colon mass. 11/24/2019 the patient tolerated diet and was felt to receive maximal hospital benefit for discharge. Dedicated discharge time 35 minutes. Disposition: DC-01 TO HOME OR SELFCARE Final Discharge Diagnosis (Prints w/discharge instructions): Partial small bowel obstruction colonic mass hyponatremia Core Measure Documentation - Palliative Care Palliative Care/ Comfort Measures: Not Applicable - Core Measures Any of the following diagnoses?: none Exam - Constitutional Vitals: Temp Pulse Resp BP Pulse Ox 98.5 F 73 20 129/63 98 11/22/20 11:45 11/22/20 11:45 11/22/20 12:03 11/22/20 11:45 11/22/20 11:45 General appearance: Present: no acute distress, well-nourished - EENT Eyes: Present: PERRL ENT: hearing intact, clear oral mucosa - Neck Neck: Present: supple, normal ROM - Respiratory Respiratory effort: normal Respiratory: bilateral: CTA - Cardiovascular Heart Sounds: Present: S1 & S2. Absent: rub, click - Extremities Extremities: pulses symmetrical, No edema Peripheral Pulses: within normal limits - Abdominal General gastrointestinal: Present: soft, non-tender, non-distended, normal bowel sounds Male genitourinary: Present: normal - Integumentary Integumentary: Present: clear, warm, dry - Musculoskeletal Musculoskeletal: gait normal, strength equal bilaterally - Psychiatric Psychiatric: appropriate mood/affect, intact judgment & insight - Neurologic Neurologic: CNII-XII intact, moves all extremities Plan Activity: advance as tolerated Weight Bearing Status: Weight Bear as Tolerated Diet: regular Follow up with: PRIMARY CARE,MD [Primary Care Provider] - 3-5 Days Prescriptions: oxyCODONE /ACETAMINOPHEN [Percocet 5/325] 1 tab PO Q6HR PRN #24 tablet PRN Reason: Pain
== END 2020-11-22 15:30 | disposition home or self-care (01) | DRG 330 ==
LOC: ED 07:49 → 3A 19:20 → 3B 19:33
PROVIDERS: ADMIT Internal Medicine; ATTEND Hospitalist
PROC: 0DBN8ZX Excision of Sigmoid Colon, Via Natural or Artificial Opening Endoscopic, Diagnostic (ICD-10-PCS; principal; 2020-11-18)
PROC: 0DTG0ZZ Resection of Left Large Intestine, Open Approach (ICD-10-PCS; 2020-11-18)
PROC: 0DBU0ZZ Excision of Omentum, Open Approach (ICD-10-PCS; 2020-11-18)
PROC: 0DBP8ZX Excision of Rectum, Via Natural or Artificial Opening Endoscopic, Diagnostic (ICD-10-PCS; 2020-11-18)
DX: K63.89 Other specified diseases of intestine (principal); E87.1 Hypo-osmolality and hyponatremia; K56.609 Unspecified intestinal obstruction, unspecified as to partial versus complete obstruction; K63.5 Polyp of colon; F17.210 Nicotine dependence, cigarettes, uncomplicated; E86.9 Volume depletion, unspecified; D75.1 Secondary polycythemia; Z82.49 Family history of ischemic heart disease and other diseases of the circulatory system; Z79.899 Other long term (current) drug therapy; Z79.891 Long term (current) use of opiate analgesic; Z79.01 Long term (current) use of anticoagulants; Z80.3 Family history of malignant neoplasm of breast; Z80.8 Family history of malignant neoplasm of other organs or systems
CPT/HCPCS: 36415; 71045; 74177; 80048; 80053; 81001; 82378; 82550; 83036; 83690; 83735; 85007; 85025; 85027; 86850; 86900; 86901; 88305; 88309; 93005; 96374; 96375; G0378; A4217; J0330; J0690; J1100; J1170; J1650; J1885; J2250; J2270; J2405; J2704; J3010; J3490; J7030; J7042; J7120; Q9967

== ENCOUNTER 2020-11-24 09:26 | Inpatient (IN) | payer OTHER, SELFPAY ==
[2020-11-24] MEDS ORDERED: HYDROmorphone 1 MG/1 ML INJ IV ONE ×2 (12:00→14:43)
[2020-11-24] MEDS ORDERED: ONDANSETRON 4 MG/2 ML INJ IV ONE (12:00)
[2020-11-24] MEDS ORDERED: LACTATED RINGERS 2,000 ML IV ONE (12:00)
--- NOTE | 2020-11-24 12:06 | Emergency Department Report ---
ED General Adult HPI - General Chief complaint: Abdominal Pain Stated complaint: POST OP COMPLICATIONS PUI?: No Time Seen by Provider: 11/24/20 11:54 Source: patient, RN notes reviewed, old records reviewed Mode of arrival: Wheelchair Limitations: Physical Limitation - History of Present Illness Initial comments: The patient was evaluated in the emergency department for symptoms described in the history of present illness. He/she was evaluated in the context of the global COVID-19 pandemic, which necessitated consideration that the patient might be at risk for infection with the virus that causes COVID-19. Institutional protocols and algorithms that pertain to the evaluation of patients at risk for COVID-19 are in a state of rapid change based on information released by regulatory bodies including the CDC and federal and state organizations. These policies and algorithms were followed during the patient's care in the emergency department. Please note that these policies, procedures and recommendations changed on a rapid basis. This is a 40-year-old gentleman. I am familiar with this patient. I recently admitted this patient to the hospital for small bowel obstruction, secondary to colonic mass. Patient was admitted to the medical service with GI, and general surgery who followed in consultation. He was found to have a large obstructing malignant mass, around the sigmoid colon, and had plans for hemicolectomy, with tumor resection. He ultimately had laparoscopic splenic flexure mobilization, partial omentectomy, left hemicolectomy for resection of 10 cm mass of the splenic flexure. He did not have any obstruction thereafter. No obvious liver lesions. The patient was subsequently discharged. Today, the patient presents to the ER with a complaint of diffuse abdominal pain, nausea vomiting, subjective fever, chills, malaise, weakness. Denies headache neck pain chest pain. No loss of taste or smell. Also reports shortness of breath, which he states is secondary to pain in his abdomen. No leg pain or leg swelling. No hematemesis of bright red blood per rectum. No urinary symptoms. -: Gradual, days(s) Location: abdomen Radiation: non-radiation Quality: aching Consistency: constant Improves with: rest Worsens with: movement - Related Data Previous Rx's Medication Instructions Recorded Last Taken Type oxyCODONE /ACETAMINOPHEN [Percocet 1 tab PO Q6HR PRN #24 tablet 11/22/20 Unknown Rx ] Allergies Allergy/AdvReac Type Severity Reaction Status Date / Time No Known Allergies Allergy Unverified 11/13/20 08:22 ED Review of Systems ROS: Stated complaint: POST OP COMPLICATIONS Other details as noted in HPI Constitutional: fever, malaise, weakness Eyes: denies: eye discharge ENT: denies: congestion Respiratory: shortness of breath Cardiovascular: denies: chest pain Gastrointestinal: abdominal pain, nausea, vomiting. denies: constipation Genitourinary: denies: dysuria, testicular pain Musculoskeletal: denies: back pain Neurological: weakness Psychiatric: anxiety Hematological/Lymphatic: denies: easy bleeding ED Past Medical Hx - Past Medical History Previous Medical History?: No Hx HIV: No - Social History Smoking Status: Current Every Day Smoker - Medications Home Medications: Home Medications Medication Instructions Recorded Confirmed Last Taken Type oxyCODONE /ACETAMINOPHEN [Percocet 1 tab PO Q6HR PRN #24 tablet 11/22/20 Unknown Rx 5/325] ED Physical Exam - General Limitations: Physical Limitation General appearance: alert, anxious, in distress - Head Head exam: Present: atraumatic, normocephalic - Eye Eye exam: Present: normal appearance, EOMI. Absent: nystagmus - ENT ENT exam: Present: normal exam, normal orophraynx, mucous membranes moist, normal external ear exam - Neck Neck exam: Present: normal inspection, full ROM. Absent: tenderness, meningismus - Respiratory Respiratory exam: Present: decreased breath sounds. Absent: respiratory distress, wheezes, rales, rhonchi, stridor - Cardiovascular Cardiovascular Exam: Present: normal rhythm, tachycardia, normal heart sounds. Absent: bradycardia, irregular rhythm, systolic murmur, diastolic murmur, rubs, gallop - GI/Abdominal GI/Abdominal exam: Present: soft, tenderness, guarding. Absent: distended, rebound, rigid, pulsatile mass - Rectal Rectal exam: Present: deferred - Extremities Exam Extremities exam: Present: normal inspection, full ROM, other (2+ pulses noted in the bilateral upper and lower extremities. There is no palpable cord. negative Homans sign. Muscular compartments are soft. The pelvis is stable.). Absent: pedal edema, calf tenderness - Back Exam Back exam: Present: normal inspection, full ROM. Absent: tenderness, CVA tenderness (R), CVA tenderness (L), paraspinal tenderness, vertebral tenderness - Neurological Exam Neurological exam: Present: alert, other (No facial droop. Tongue midline. Extraocular movements intact bilaterally. Facial sensation intact to light touch in V1, V2, V3 distribution bilaterally. 5 and a 5 strength in 4 extremities. Sensation intact to light touch in 4 extremities.). Absent: motor sensory deficit - Psychiatric Psychiatric exam: Present: anxious - Skin Skin exam: Present: warm, dry, intact, normal color. Absent: rash ED Course Vital Signs 11/24/20 11/24/20 11/24/20 09:30 12:48 13:00 Temperature 98.5 F Pulse Rate 122 H 88 Respiratory 20 18 17 Rate Blood Pressure 115/76 Blood Pressure 109/67 [Right] O2 Sat by Pulse 93 95 Oximetry O2 Sat by Pulse Oximetry [ Digit-Finger] 11/24/20 11/24/20 11/24/20 13:16 13:30 13:46 Temperature Pulse Rate 94 H 99 H 93 H Respiratory 17 23 22 Rate Blood Pressure 109/67 100/64 100/64 Blood Pressure [Right] O2 Sat by Pulse 95 95 95 Oximetry O2 Sat by Pulse Oximetry [ Digit-Finger] 11/24/20 11/24/20 11/24/20 14:00 14:16 14:30 Temperature Pulse Rate 87 92 H 100 H Respiratory 18 16 23 Rate Blood Pressure 112/67 112/67 112/67 Blood Pressure [Right] O2 Sat by Pulse 95 94 95 Oximetry O2 Sat by Pulse Oximetry [ Digit-Finger] 11/24/20 11/24/20 11/24/20 14:46 15:00 15:16 Temperature Pulse Rate 103 H 106 H 103 H Respiratory 21 25 H 17 Rate Blood Pressure 112/60 112/60 112/60 Blood Pressure [Right] O2 Sat by Pulse 94 92 93 Oximetry O2 Sat by Pulse Oximetry [ Digit-Finger] 11/24/20 11/24/20 11/24/20 15:20 15:30 15:46 Temperature Pulse Rate 107 H 102 H Respiratory 16 21 Rate Blood Pressure 100/49 100/49 Blood Pressure [Right] O2 Sat by Pulse 96 Oximetry O2 Sat by Pulse 95 Oximetry [ Digit-Finger] - Reevaluation(s) Reevaluation #1: 11/24/20 12:11 Differential diagnosis, including but not limited to: Obstruction, perforation, infection, bacteremia, pulmonary embolism, surgical complication Assessment and plan: 40-year-old gentleman, with diffuse abdominal pain, nausea, vomiting, subjective fever and chills, tachycardia, initial pulse ox 93%, now 95% on room air. Placed patient on alarm security or surveillance monitor, saturating at 95% on room air Establish large-bore IV access, start fluids, pain medication, analgesia, and antiemetic therapy. Obtain stat chest x-ray, EKG, CT angiogram chest, abdomen pelvis. Discussed with his general surgeon. Reassess after initial data points. Have discussed this plan of care with the patient. He is amenable to this plan of care. 11/24/20 13:43 Tachycardia resolved. Patient feels improved. Subdiaphragmatic free air on chest x-ray likely secondary to recent surgery. CT scans pending, laboratory studies reviewed and appreciated. Leukocytosis appreciated, uncertain of secondary to pain, stress, recent surgical instrumentation or acute process. Patient declines additional pain medication at this time 11/24/20 15:18 CT scan of the chest negative for acute findings. CT scan abdomen pelvis suggest enteritis, as per discussion with general surgeon, Dr. Ahmadi She is currently at the patient's bedside, and is making further recommendations. Given bandemia, pain, we anticipate the patient would require emergent operative exploration. Additional pain medication, fluids and antibiotics ordered. Hospital physician, Dr Gary Alvarenga to admit to IMS - Consultations Consultation #1: 11/24/20 12:34 Discussed plan of care with general surgeon of record, Dr. Carolyn Ahmadi She is in agreement with the plan of care, and requests call back once laboratory studies and CT scans have resulted. - Pulse Oximetry Interpretation Digit-Finger Initial Pulse Oximetry Readin O2 Sat by Pulse Oximetry: 95 Actions Taken: none ED Medical Decision Making - Lab Data Result diagrams: 11/24/20 11:47 11/24/20 11:47 Vital Signs 11/24/20 09:30 Temperature 98.5 F Pulse Rate 122 H Respiratory 20 Rate Blood Pressure 115/76 O2 Sat by Pulse 93 Oximetry Lab Results 11/24/20 11/24/20 Range/Units 11:47 11:47 WBC 39.9 H (4.5-11.0) K/mm3 RBC 5.05 H (3.65-5.03) M/mm3 Hgb 14.8 (11.8-15.2) gm/dl Hct 44.9 (35.5-45.6) % MCV 89 (84-94) fl MCH 29 (28-32) pg MCHC 33 (32-34) % RDW 13.8 (13.2-15.2) % Plt Count 440 (140-440) K/mm3 Seg Neutrophils % Packaging Supervisor Sodium 140 (137-145) mmol/L Potassium 4.0 (3.6-5.0) mmol/L Chloride 99.7 (98-107) mmol/L Carbon Dioxide 23 (22-30) mmol/L Anion Gap 21 mmol/L BUN 12 (9-20) mg/dL Creatinine 0.6 L (0.8-1.3) mg/dL Estimated GFR > 60 ml/min BUN/Creatinine Ratio 20 % Glucose 113 H (75-100) mg/dL Calcium 9.1 (8.4-10.2) mg/dL Total Bilirubin 0.70 (0.1-1.2) mg/dL AST 25 (5-40) units/L ALT 26 (7-56) units/L Alkaline Phosphatase 90 (35-129) units/L Total Protein 7.3 (6.3-8.2) g/dL Albumin 3.4 L (3.9-5) g/dL Albumin/Globulin Ratio 0.9 % Lipase 7 L (13-60) units/L - EKG Data -: EKG Interpreted by Or EKG shows normal: sinus rhythm Rate: normal - EKG Data 11/24/20 13:40 EKG interpreted at 13: 10 Sinus rhythm, 94 bpm, normal axis, normal intervals, not a STEMI. - Radiology Data Radiology results: pending, report reviewed, image reviewed CHEST 1 VIEW INDICATION / CLINICAL INFORMATION: Tachycardia and hypoxia. COMPARISON: 11/13/2020 FINDINGS: SUPPORT DEVICES: None. HEART / MEDIASTINUM: No significant abnormality. LUNGS / PLEURA: There may be air under the right hem idiaphragm. Minimal subsegmental atelectasis is seen in the right lung base No pneumothorax. ADDITIONAL FINDINGS: No significant additional findings. IMPRESSION: Possible air under the right hemidiaphragm. Subsegmental atelectasis present in the right lung base CRITICAL RESULT: Time of Discovery: 1128 hours CDT Time of Communication: 1131 hours CDT Licensed Practitioner Receiving Report: Pascual Clifford MD Read Back Performed: Yes. Signer Name: Seferino Siegel MD FACR Signed: 11/24/2020 11:31 AM Workstation Name: [id number] [facility] [address] [place] [address] Cat Scan Report Signed Patient: VLADIMIR ANDREW MR#: [id number] : 1980 Acct:[id number] Age/Sex: 40 / M ADM Date: 11/24/20 Loc: ED Attending Dr: Gloria shane Physician: PASCUAL CLIFFORD MD Date of Service: 11/24/20 Procedure(s): CT angio chest Accession Number(s): [id number] cc: PASCUAL CLIFFORD MD CT angio chest INDICATION / CLINICAL INFORMATION: Postoperative dyspnea, shortness of breath, tachyc Postoperative BOWEL RESECTION nausea, vomiting, fever and chills OMNI 350 100 ML. TECHNIQUE: Axial CT images were obtained after injection of 100 cc of Omnipaque 350 IV contrast using CTA protocol. 3 plane MIP / 3D reconstructions were produced. All CT scans at this location are performed using CT dose reduction for ALARA by means of automated exposure control. COMPARISON: None available. FINDINGS: Following the administration of intravenous contrast, a suboptimal bolus was obtained. No definite filling defects are seen in the main pulmonary arteries or their branches. Marked atelectasis is seen in both lower lobes worse on the left than the right. No enlarged mediastinal or hilar lymph nodes are seen. No significant skeletal abnormalities identified. Free air is seen in the abdomen presumably from recent surgery. There is a markedly thicke lavon loop of bowel seen in the left upper abdomen IMPRESSION: 1. No evidence of pulmonary embolus 2. Marked atelectasis in both lower lobes worse on the left than the right 3. Free air in the abdomen presumably from recent surgery 4. Markedly thickened loop of bowel in the left upper abdomen Signer Name: Seferino Siegel MD FACR Signed: 11/24/2020 3:03 PM Workstation Name: [id number] Transcribed By: MS Dictated By: Seferino Siegel MD Electronically Authenticated By: Seferino Siegel MD Signed Date/Time: 11/24/20 1503 DD/ 1500 CT ABDOMEN AND PELVIS WITH CONTRAST HISTORY: Postoperative BOWEL RESECTION nausea, vomiting, fever and chills OMNI 350 100 ML . COMPARISON: 11/15/2000 TECHNIQUE: Helical CT images of the abdomen and pelvis were obtained following administration of intravenous contrast. Sagittal and coronal reformatted images were reviewed. All CT scans at this location are performed using CT dose reduction for ALARA by means of automated exposure control. CONTRAST: 100 ml of intravenous contrast administered. FINDINGS: Abdomen/pelvis: Interval resection of a distal transverse colon mass has been performed since the previous exam. There is a large amount of free air throughout the abdomen and moderate fluid in the pelvis which may be loculated. Visceral perforation is suspected until proven otherwise. Anastomosis site in the transverse colon appears grossly intact. There are multiple markedly thickened small bowel loops in the left abdomen but no evidence for pneumatosis or obvious site of perforation. The liver, biliary system, pancreas, spleen, kidneys and adrenal glands are unremarkable. The arterial and venous structures appear patent and within normal limits. The bladder, distal ureters and prostate gland are unremarkable. Lungs/bones: Bibasilar opacities are identified, left greater than right. Small left pleural effusion. IMPRESSION: Large free air and fluid is identified in the abdomen concerning for visceral perforation. There are multiple thickened small bowel loops in the left abdomen of uncertain etiology. This has the appearance of a moderate to severe enteritis. Bibasilar infiltrates and small left pleural effusion. This is more consistent with atelectasis. Aspiration could be considered. CRITICAL RESULT: Time of Discovery (UNDERGROUND REPAIRER/CDT): 1410 hours Time of Communication (UNDERGROUND REPAIRER/CDT): 1414 hours Licensed Practitioner Receiving Report: Dr. Ahmadi Read-Back Performed: Yes. Signer Name: Bharat Potter Jr, MD Signed: 11/24/2020 2:14 PM Workstation Name: [id number] Critical Care Time: Yes Critical care time in (mins) excluding proc time.: 35 Critical care attestation.: If time is entered above; I have spent that time in minutes in the direct care of this critically ill patient, excluding procedure time. ED Disposition Clinical Impression: SIRS (systemic inflammatory response syndrome), Bandemia, Acute abdominal pain, Acute dyspnea, Postoperative pain, Nausea and vomiting Disposition: DC-09 OP ADMIT IP TO THIS HOSP Is pt being admited?: Yes Does the pt Need Aspirin: No Condition: Serious
--- NOTE | 2020-11-24 12:35 | XRay Report ---
CHEST 1 VIEW INDICATION / CLINICAL INFORMATION: Tachycardia and hypoxia. COMPARISON: 11/13/2020 FINDINGS: SUPPORT DEVICES: None. HEART / MEDIASTINUM: No significant abnormality. LUNGS / PLEURA: There may be air under the right hemidiaphragm. Minimal subsegmental atelectasis is s een in the right lung base No pneumothorax. ADDITIONAL FINDINGS: No significant additional findings. IMPRESSION: Possible air under the right hemidiaphragm. Subsegmental atelectasis present in the right lung base CRITICAL RESULT: Time of Discovery: 1128 hours CDT Time of Communication: 1131 hours CDT Licensed Practitioner Receiving Report: Pascula Clifford MD Read Back Performed: Yes. Signer Name: Seferino Siegel MD FACR Signed: 11/24/2020 12:31 PM Workstation Name: [id number]
[2020-11-24 12:46] LABS: Hematocrit 44.9 % (35.5-45.6); Hemoglobin 14.8 gm/dl (11.8-15.2); Mean Corpuscular HGB Conc 33 % (32-34); Mean Corpuscular Volume 89 fl (84-94); Platelet Count 440 K/mm3 (140-440); Red Blood Count 5.05 M/mm3 (3.65-5.03); Red Cell Distribution Width 13.8 % (13.2-15.2)
[2020-11-24 13:04] LABS: Alanine Aminotransferase 26 units/L (7-56); Albumin 3.4 g/dL (3.9-5); Blood Urea Nitrogen 12 mg/dL (9-20); Calcium 9.1 mg/dL (8.4-10.2); Hemolysis Index 7
[2020-11-24 13:09] LABS: BUN/Creatinine Ratio 20
[2020-11-24 14:06] LABS: INR 1.09 (0.87-1.13)
[2020-11-24 14:40] LABS: Band Neutrophils # (Manual) 7.6 K/mm3; Platelet Estimate Consistent w Auto; RBC Morphology Normal; Total Cells Counted 100
[2020-11-24] MEDS ORDERED: LACTATED RINGERS 1,000 ML IV ONE (14:44)
[2020-11-24] MEDS ORDERED: ERTAPENEM 1 GM in SODIUM CHLORIDE 0.9% 50 ML IV ONE (15:00)
--- NOTE | 2020-11-24 15:08 | Cat Scan Report ---
CT angio chest INDICATION / CLINICAL INFORMATION: Postoperative dyspnea, shortness of breath, tachyc Postoperative BOWEL RESECTION nausea, vomiting, fe robert and chills OMNI 350 100 ML. TECHNIQUE: Axial CT images were obtained after injection of 100 cc of Omnipaque 350 IV contrast using CTA protoc ol. 3 plane MIP / 3D reconstructions were produced. All CT scans at this location are performed using CT dose reduction for ALARA by means of automated exposure control. COMPARISON: None available. FINDINGS: Following the administration of intravenous contrast, a suboptimal bolus was obtained. No definite fi lling defects are seen in the main pulmonary arteries or their branches. Marked atelectasis is seen i n both lower lobes worse on the left than the right. No enlarged mediastinal or hilar lymph nodes are seen. No significant skeletal abnormalities identified. Free air is seen in the abdomen presumably f rom recent surgery. There is a markedly thickened loop of bowel seen in the left upper abdomen IMPRESSION: 1. No evidence of pulmonary embolus 2. Marked atelectasis in both lower lobes worse on the left than the right 3. Free air in the abdomen presumably from recent surgery 4. Markedly thickened loop of bowel in the left upper abdomen Signer Name: Seferino Siegel MD FACR Signed: 11/24/2020 3:03 PM Workstation Name: [id number]
--- NOTE | 2020-11-24 15:19 | Cat Scan Report ---
CT ABDOMEN AND PELVIS WITH CONTRAST HISTORY: Postoperative BOWEL RESECTION nausea, vomiting, fever and chills OMNI 350 100 ML . COMPARISON: 11/15/2000 TECHNIQUE: Helical CT images of the abdomen and pelvis were obtained following administration of intr avenous contrast. Sagittal and coronal reformatted images were reviewed. All CT scans at this [facility] are performed using CT dose reduction for ALARA by means of automated exposure control. CONTRAST: 100 ml of intravenous contrast administered. FINDINGS: Abdomen/pelvis: Interval resection of a distal transverse colon mass has been performed since the pr evious exam. There is a large amount of free air throughout the abdomen and moderate fluid in the pel vis which may be loculated. Visceral perforation is suspected until proven otherwise. Anastomosis sit e in the transverse colon appears grossly intact. There are multiple markedly thickened small bowel l oops in the left abdomen but no evidence for pneumatosis or obvious site of perforation. The liver, biliary system, pancreas, spleen, kidneys and adrenal glands are unremarkable. The arteria l and venous structures appear patent and within normal limits. The bladder, distal ureters and prostate gland are unremarkable. Lungs/bones: Bibasilar opacities are identified, left greater than right. Small left pleural effusio n. IMPRESSION: Large free air and fluid is identified in the abdomen concerning for visceral perforation. There are multiple thickened small bowel loops in the left abdomen of uncertain etiology. This has th e appearance of a moderate to severe enteritis. Bibasilar infiltrates and small left pleural effusion. This is more consistent with atelectasis. Aspi ration could be considered. CRITICAL RESULT: Time of Discovery (ASSET LIABILITY ANALYST/CDT): 1410 hours Time of Communication (ASSET LIABILITY ANALYST/CDT): 1414 hours Licensed Practitioner Receiving Report: Dr. Ahmadi Read-Back Performed: Yes. Signer Name: Bharat Potter Jr, MD Signed: 11/24/2020 3:14 PM Workstation Name: [id number]
[2020-11-24] MEDS ORDERED: propofoL 200 MG/20 ML VIAL IV ONE (15:31)
[2020-11-24] MEDS ORDERED: KETAMINE/STERILE WATER 50 MG/ML SYRINGE ONE (15:31)
[2020-11-24] MEDS ORDERED: ROCURONIUM 50 MG/5 ML INJ IV ONE ×2 (15:31→19:14)
[2020-11-24] MEDS ORDERED: LIDOCAINE (1%) 10 MG/1 ML VIAL 20 ML MDV ONE (15:43)
[2020-11-24] MEDS ORDERED: BUPIVACAINE-EPINEPHRINE/PF 0.25%-1:200,000 (30 ML) VIAL INFILTRATI ONE ×2 (15:43→19:28)
[2020-11-24] MEDS ORDERED: MIDAZOLAM 2 MG/2 ML INJ ONE (15:56)
[2020-11-24] MEDS ORDERED: ONDANSETRON 4 MG/2 ML INJ ONE (15:56)
--- NOTE | 2020-11-24 15:56 | Anesthesia Day of Surgery ---
Anesthesia Day of Surgery - Day of Surgery Patient Examined: Yes Patient H&P Reviewed: Yes Patient is NPO: Yes
[2020-11-24] MEDS ORDERED: ONDANSETRON 4 MG/2 ML INJ IV PRN ×2 (15:57→20:17)
[2020-11-24] MEDS ORDERED: HYDROmorphone 1 MG/1 ML INJ IV PRN (15:57)
--- NOTE | 2020-11-24 15:57 | Consultation ---
History of Present Illness Consult date: 11/24/20 Reason for consult: abdominal pain Chief complaint: Abdominal pain, postop colon resection - History of present illness History of present illness: 40-year-old male who was recently admitted to [facility] for abdominal pain nausea and vomiting. He was found to have a near obstructing splenic flexure mass concerning for malignancy with resultant developing small bowel obstruction. The patient was worked up with imaging and colonoscopy. He underwent surgical resection on 11/19/2020. His postoperative course was uncomplicated. The patient was passing flatus and tolerating liquids. His pain was well controlled. He was discharged on postoperative day 3. The patient states that he was feeling well on the day of discharge and the following day. He was tolerating a diet without nausea or vomiting. He was afebrile. He states that he had a bowel movement which was normal without hematochezia or melena. Yesterday evening however he started to feel ill. He states he was diaphoretic with subjective fever/chills. He states that his left side of his abdomen started to become more painful and eventually he was not able to tolerate anything p.o. He states he was having nausea and vomiting which was nonbilious/nonbloody. He also states he was unable to fill the pain medication which she was discharged with despite going to more than 5 pharmacies because the medication was not in stock. Past History Past Medical History: cancer Past Surgical History: bowel surgery (Laparoscopic left hemicolectomy with primary anastomosis) Social history: no significant social history Family history: no significant family history Medications and Allergies Allergies Allergy/AdvReac Type Severity Reaction Status Date / Time No Known Allergies Allergy Unverified 11/13/20 08:22 Home Medications Medication Instructions Recorded Confirmed Last Taken Type oxyCODONE /ACETAMINOPHEN [Percocet 1 tab PO Q6HR PRN #24 tablet 11/22/20 Unknown Rx 5/325] Review of Systems All systems: negative (10 point ROS performed and negative except for that listed in HPI) Exam Vital Signs Temp Pulse Resp BP Pulse Ox 98.5 F 122 H 20 115/76 93 11/24/20 09:30 11/24/20 09:30 11/24/20 09:30 11/24/20 09:30 11/24/20 09:30 Narrative exam: Gen.: Awake, alert, oriented x3. Mild distress due to pain. ENT: Trachea midline. No lymphadenopathy. No scleral icterus or conjunctival pallor CV: S1, S2 present Respiratory: No audible wheezes Abdomen: Soft, nondistended, tenderness to palpation in the left hemiabdomen. Incisions appear clean, dry and intact. No rebound, rigidity, guarding Extremities: No clubbing, cyanosis, edema Results - Labs 11/24/20 11:47 11/24/20 11:47 Abnormal lab results 11/24/20 11/24/20 11/24/20 Range/Units 11:47 11:47 13:15 WBC 39.9 H (4.5-11.0) K/mm3 RBC 5.05 H (3.65-5.03) M/mm3 Seg Neuts % (Manual) 74.0 H (40.0-70.0) % Seg Neutrophils # Man 29.5 H (1.8-7.7) K/mm3 Lymphocytes # (Manual) 0.0 L (1.2-5.4) K/mm3 Monocytes # (Manual) 2.8 H (0.0-0.8) K/mm3 D-Dimer 1665.17 H (0-234) ng/mlDDU Creatinine 0.6 L (0.8-1.3) mg/dL Glucose 113 H (75-100) mg/dL Lactic Acid (0.7-2.0) mmol/L Albumin 3.4 L (3.9-5) g/dL Lipase 7 L (13-60) units/L 11/24/20 Range/Units 13:15 WBC (4.5-11.0) K/mm3 RBC (3.65-5.03) M/mm3 Seg Neuts % (Manual) (40.0-70.0) % Seg Neutrophils # Man (1.8-7.7) K/mm3 Lymphocytes # (Manual) (1.2-5.4) K/mm3 Monocytes # (Manual) (0.0-0.8) K/mm3 D-Dimer (0-234) ng/mlDDU Creatinine (0.8-1.3) mg/dL Glucose (75-100) mg/dL Lactic Acid 2.60 H* (0.7-2.0) mmol/L Albumin (3.9-5) g/dL Lipase (13-60) units/L Diabetes panel 11/24/20 Range/Units 11:47 Sodium 140 (137-145) mmol/L Potassium 4.0 (3.6-5.0) mmol/L Chloride 99.7 (98-107) mmol/L Carbon Dioxide 23 (22-30) mmol/L BUN 12 (9-20) mg/dL Creatinine 0.6 L (0.8-1.3) mg/dL Glucose 113 H (75-100) mg/dL Calcium 9.1 (8.4-10.2) mg/dL AST 25 (5-40) units/L ALT 26 (7-56) units/L Alkaline Phosphatase 90 (35-129) units/L Total Protein 7.3 (6.3-8.2) g/dL Albumin 3.4 L (3.9-5) g/dL Calcium panel 11/24/20 Range/Units 11:47 Calcium 9.1 (8.4-10.2) mg/dL Albumin 3.4 L (3.9-5) g/dL Pituitary panel 11/24/20 Range/Units 11:47 Sodium 140 (137-145) mmol/L Potassium 4.0 (3.6-5.0) mmol/L Chloride 99.7 (98-107) mmol/L Carbon Dioxide 23 (22-30) mmol/L BUN 12 (9-20) mg/dL Creatinine 0.6 L (0.8-1.3) mg/dL Glucose 113 H (75-100) mg/dL Calcium 9.1 (8.4-10.2) mg/dL Adrenal panel 11/24/20 Range/Units 11:47 Sodium 140 (137-145) mmol/L Potassium 4.0 (3.6-5.0) mmol/L Chloride 99.7 (98-107) mmol/L Carbon Dioxide 23 (22-30) mmol/L BUN 12 (9-20) mg/dL Creatinine 0.6 L (0.8-1.3) mg/dL Glucose 113 H (75-100) mg/dL Calcium 9.1 (8.4-10.2) mg/dL Total Bilirubin 0.70 (0.1-1.2) mg/dL AST 25 (5-40) units/L ALT 26 (7-56) units/L Alkaline Phosphatase 90 (35-129) units/L Total Protein 7.3 (6.3-8.2) g/dL Albumin 3.4 L (3.9-5) g/dL - Imaging Chest x-ray: report reviewed, image reviewed CT scan - abdomen: report reviewed, image reviewed CT scan - chest: report reviewed, image reviewed CT scan - pelvis: report reviewed, image reviewed Assessment and Plan 40-year-old male with 1. Severe enteritis ? Etiology 2. Pneumoperitoneum, possible perforated viscus 3. sepsis 2/2 #1 and 2 4. Splenic flexure mass status post laparoscopic left hemicolectomy 11/19/20 Plan: 1. NPO 2. IVF 3. Iv abx - invanz ordered. 4. DVT ppx 5. prn pain and nausea control 6. GI ppx 7. path from surgery 11/19/[address]A normal 8. CT chest, abdomen, pelvis reviewed with in-house radiologist. No evidence of PE, there is atelectasis of bilateral lower lung. There is pneumoperitoneum. Colocolonic anastomosis appears intact. There is free fluid in the pelvis. There is severe thickening of small bowel loops in the left hemiabdomen. SMA and SMV appear patent. There is no twisting of the mesentery. 9. After reviewing the patient's clinical presentation, laboratory data, imaging there is concern for perforated viscus. I recommend proceeding to the OR emergently for diagnostic laparoscopy, possible exploratory laparotomy. I discussed this with the patient and reviewed CT scan results with him. All risks, benefits, alternatives to surgery were discussed with the patient inc luding but not limited to infection, bleeding, injury to surrounding structures, possible need for open surgery, possible need for colostomy, possible need for an open abdomen, possible need for multiple operations. He understands and all questions answered. Consent obtained for diagnostic laparoscopy, possible exploratory laparotomy, possible bowel resection, possible ostomy. Thank you for this consultation. Please call with any questions or concerns. Evaluation and treatment of this patient was during the time of the national and state emergency arising from COVID19 coronavirus pandemic. Treatment and procedures performed meet the current and available best practice and guidelines for patient during the COVID pandemic.
[2020-11-24] MEDS ORDERED: SODIUM CHLORIDE 0.9% IRR 1,500 ML BOTTLE IR ONE ×3 (17:08)
[2020-11-24] MEDS ORDERED: LIDOCAINE MPF (2%) 20 MG/1 ML VIAL 5 ML ONE (19:13)
[2020-11-24] MEDS ORDERED: LIDOCAINE (1%) 10 MG/1 ML VIAL 20 ML MDV INFILTRATI ONE (19:29)
[2020-11-24] MEDS ORDERED: NEOSTIGMINE 10MG/10 ML INJ MDV ONE (19:55)
[2020-11-24] MEDS ORDERED: GLYCOPYRROLATE 0.4 MG/2 ML INJ ONE (19:55)
--- NOTE | 2020-11-24 20:16 | Post Operative Note ---
Date of procedure: 11/24/20 Pre-op diagnosis: perforated viscus, hx colon cancer Post-op diagnosis: same Findings: 1. Breakdown of proximal portion of colo-colonic anastamosis 2. Congested, ischemic omentum 3. Edematous, distended proximal and mid jejunum IVF: 3L NGT output - 400cc Uo: 200cc Anesthesia: EDMOND Surgeon: HOA TEE [employer] Project Manager: PABLO MARISCAL Estimated blood loss: other (150cc) Pathology: list (1. omentum 2. colocolonic anastamosis) Specimen disposition: to lab Condition: stable Disposition: PACU
[2020-11-24] MEDS: HYDROmorphone 1 MG/1 ML INJ IV PRN ×4 (20:25→20:55)
--- NOTE | 2020-11-24 20:30 | History and Physical Report ---
History of Present Illness Date of examination: 11/24/20 Date of admission: 11/24/20 15:19 Chief complaint: Left upper quadrant pain and nausea and vomiting for 1 day History of present illness: 40-year-old male with history of colon cancer--recently diagnosed in this hospital with resultant small bowel obstruction. Patient had a splenic flexure mass which was concerning for malignancy. Patient went surgical resection on 11/19/2020. Postop course was uncomplicated. Was able to tolerate clears and was advancing diet as diet. Patient is tolerating diet without nausea or vomiting. No hematochezia or melena. Since last night patient has been having left upper quadrant pain and not able to tolerate anything by mouth. Patient also is having nausea and vomiting. Which is nonbilious. Patient was unable to take any pain medication because he did not fill his prescriptions. No fever or chills.. Past History Past Medical History: cancer Past Surgical History: bowel surgery (Laparoscopic left hemicolectomy with primary anastomosis) Social history: no significant social history Family history: no significant family history Medications and Allergies Allergies Allergy/AdvReac Type Severity Reaction Status Date / Time No Known Allergies Allergy Unverified 11/13/20 08:22 Home Medications Medication Instructions Recorded Confirmed Last Taken Type oxyCODONE /ACETAMINOPHEN [Percocet 1 tab PO Q6HR PRN #24 tablet 11/22/20 Unknown Rx 5/325] Review of Systems GI left upper quadrant pain associated with nausea and vomiting All systems: negative (10 point ROS performed and negative except for that listed in HPI) Constitutional no weight loss or weight gain no fever or chills HEENT no sore throat no post nasal drip no diplopia Neck no neck stiffness no lymph gland enlargement Chest and lungs no shortness of breath cough or wheezing CVS no chest pain no diaphoresis no palpitations Genitourinary system no dysuria no flank pain Musculoskeletal system no muscle pains no joint pains MOUNTER HAND no syncope no seizures Skin no rash no itching Psychiatric no depression no homicidal or suicidal tendencies Hematologic no lymphedema or bruising Endocrine no polydipsia no polyuria no cold intolerance no heat intolerance Past History Past Medical History: cancer Past Surgical History: bowel surgery (Laparoscopic left hemicolectomy with primary anastomosis) Social history: no significant social history Family history: no significant family history Medications and Allergies Allergies Allergy/AdvReac Type Severity Reaction Status Date / Time No Known Allergies Allergy Unverified 11/13/20 08:22 Home Medications Medication Instructions Recorded Confirmed Last Taken Type oxyCODONE /ACETAMINOPHEN [Percocet 1 tab PO Q6HR PRN #24 tablet 11/22/20 Unknown Rx 5/325] Active Meds: Active Medications Enoxaparin Sodium (Enoxaparin 30 Mg/0.3 Ml Inj) 40 mg SUB-Q QDAY ION; Protocol Hydromorphone HCl (Hydromorphone 1 Mg/1 Ml Inj) 0.5 mg IV Q10MIN PRN PRN Reason: Pain , Severe (7-10) Hydromorphone HCl (Hydromorphone 1 Mg/1 Ml Inj) 0.25 mg IV Q10MIN PRN PRN Reason: Pain, Moderate (4-6) Hydromorphone HCl (Hydromorphone 1 Mg/1 Ml Inj) 0.5 mg IV Q3H PRN PRN Reason: Pain, Moderate (4-6) Hydromorphone HCl (Hydromorphone 1 Mg/1 Ml Inj) 1 mg IV Q3H PRN PRN Reason: Pain , Severe (7-10) Potassium Chloride/Dextrose/Sod Cl (D5w/Ns W/Kcl 20meq) 20 meq in 1,000 mls @ 125 mls/hr IV DIRECT ION Levofloxacin/Dextrose (Levaquin 500mg/100ml) 500 mg in 100 mls @ 100 mls/hr IV Q24H ION; Protocol Metronidazole (Flagyl 500 Mg/100 Ml) 500 mg in 100 mls @ 100 mls/hr IV Q8H ION; Protocol Ketorolac Tromethamine (Ketorolac 30 Mg/1 Ml Inj) 30 mg IV Q8H ION Stop: 11/29/20 20:59 Ondansetron HCl (Ondansetron 4 Mg/2 Ml Inj) 4 mg IV ONCE PRN PRN Reason: Nausea And Vomiting Ondansetron HCl (Ondansetron 4 Mg/2 Ml Inj) 4 mg IV Q6H PRN PRN Reason: Nausea And Vomiting Exam - Constitutional Vitals: Temp Pulse Resp BP Pulse Ox 98.5 F 102 H 21 100/49 95 11/24/20 09:30 11/24/20 15:46 11/24/20 15:46 11/24/20 15:46 11/24/20 18:05 General appearance: Present: mild distress, well-nourished - EENT Eyes: Present: PERRL ENT: hearing intact, clear oral mucosa - Neck Neck: Present: supple, normal ROM - Respiratory Respiratory effort: normal Respiratory: bilateral: CTA - Cardiovascular Heart rate: 98 Rhythm: regular Heart Sounds: Present: S1 & S2. Absent: rub, click - Extremities Extremities: pulses symmetrical, No edema Peripheral Pulses: within normal limits - Abdominal General gastrointestinal: Present: soft, non-tender, tender, normal bowel sounds, hypoactive bowel sounds Localized gastrointestinal: tender: LUQ, guarding: LUQ, rebound: LUQ Male genitourinary: Present: normal - Rectal Rectal Exam: stool brown - Integumentary Integumentary: Present: clear, warm, dry - Musculoskeletal Musculoskeletal: gait normal, strength equal bilaterally - Psychiatric Psychiatric: appropriate mood/affect, intact judgment & insight - Neurologic Neurologic: CNII-XII intact, moves all extremities - Allied Health Allied health notes reviewed: nursing, case management HEART Score - HEART Score Troponin: Troponin T < 0.010 ng/mL (0.00-0.029) 11/24/20 13:15 Results - Labs CBC & Chem 7: 11/24/20 11:47 11/24/20 11:47 Labs: Laboratory Last Values WBC 39.9 K/mm3 (4.5-11.0) H 11/24/20 11:47 RBC 5.05 M/mm3 (3.65-5.03) H 11/24/20 11:47 Hgb 14.8 gm/dl (11.8-15.2) 11/24/20 11:47 Hct 44.9 % (35.5-45.6) 11/24/20 11:47 MCV 89 fl (84-94) 11/24/20 11:47 MCH 29 pg (28-32) 11/24/20 11:47 MCHC 33 % (32-34) 11/24/20 11:47 RDW 13.8 % (13.2-15.2) 11/24/20 11:47 Plt Count 440 K/mm3 (140-440) 11/24/20 11:47 Add Manual Diff Complete 11/24/20 11:47 Total Counted 100 11/24/20 11:47 Seg Neutrophils % Deck Specialist 11/24/20 11:47 Seg Neuts % (Manual) 74.0 % (40.0-70.0) H 11/24/20 11:47 Band Neutrophils % 19.0 % 11/24/20 11:47 Monocytes % (Manual) 7.0 % (0.0-7.3) 11/24/20 11:47 Nucleated RBC % Not Reportable 11/24/20 11:47 Seg Neutrophils # Man 29.5 K/mm3 (1.8-7.7) H 11/24/20 11:47 Band Neutrophils # 7.6 K/mm3 11/24/20 11:47 Lymphocytes # (Manual) 0.0 K/mm3 (1.2-5.4) L 11/24/20 11:47 Abs React Lymphs (Man) 0.0 K/mm3 11/24/20 11:47 Monocytes # (Manual) 2.8 K/mm3 (0.0-0.8) H 11/24/20 11:47 Eosinophils # (Manual) 0.0 K/mm3 (0.0-0.4) 11/24/20 11:47 Basophils # (Manual) 0.0 K/mm3 (0.0-0.1) 11/24/20 11:47 Metamyelocytes # 0.0 K/mm3 11/24/20 11:47 Myelocytes # 0.0 K/mm3 11/24/20 11:47 Promyelocytes # 0.0 K/mm3 11/24/20 11:47 Blast Cells # 0.0 K/mm3 11/24/20 11:47 Hypersegmented Neuts Not Reportable 11/24/20 11:47 Hyposegmented Neuts Not Reportable 11/24/20 11:47 Hypogranular Neuts Not Reportable 11/24/20 11:47 Smudge Cells Not Reportable 11/24/20 11:47 Toxic Granulation Not Reportable 11/24/20 11:47 Toxic Vacuolation Not Reportable 11/24/20 11:47 Dohle Bodies Not Reportable 11/24/20 11:47 Pelger-Huet Anomaly Not Reportable 11/24/20 11:47 Eugenia Rods Not Reportable 11/24/20 11:47 Platelet Estimate Consistent w auto 11/24/20 11:47 Clumped Platelets Not Reportable 11/24/20 11:47 Plt Clumps, EDTA Not Reportable 11/24/20 11:47 Large Platelets Not Reportable 11/24/20 11:47 Giant Platelets Not Reportable 11/24/20 11:47 Platelet Satelliting Not Reportable 11/24/20 11:47 Plt Morphology Comment Not Reportable 11/24/20 11:47 RBC Morphology Normal 11/24/20 11:47 Dimorphic RBCs Not Reportable 11/24/20 11:47 Polychromasia Not Reportable 11/24/20 11:47 Hypochromasia Not Reportable 11/24/20 11:47 Poikilocytosis Not Reportable 11/24/20 11:47 Anisocytosis Not Reportable 11/24/20 11:47 Microcytosis Not Reportable 11/24/20 11:47 Macrocytosis Not Reportable 11/24/20 11:47 Spherocytes Not Reportable 11/24/20 11:47 Pappenheimer Bodies Not Reportable 11/24/20 11:47 Sickle Cells Not Reportable 11/24/20 11:47 Target Cells Not Reportable 11/24/20 11:47 Tear Drop Cells Not Reportable 11/24/20 11:47 Ovalocytes Not Reportable 11/24/20 11:47 Helmet Cells Not Reportable 11/24/20 11:47 [place] Bodies Not Reportable 11/24/20 11:47 [place] Rings Not Reportable 11/24/20 11:47 [place] Cells Not Reportable 11/24/20 11:47 Bite Cells Not Reportable 11/24/20 11:47 Crenated Cell Not Reportable 11/24/20 11:47 Elliptocytes Not Reportable 11/24/20 11:47 Acanthocytes (Spur) Not Reportable 11/24/20 11:47 Rouleaux Not Reportable 11/24/20 11:47 Hemoglobin C Crystals Not Reportable 11/24/20 11:47 Schistocytes Not Reportable 11/24/20 11:47 Malaria parasites Not Reportable 11/24/20 11:47 Blade Bodies Not Reportable 11/24/20 11:47 Hem Pathologist Commnt Sent to pathology 11/24/20 11:47 PT 14.7 Sec. (12.2-14.9) 11/24/20 13:15 INR 1.09 (0.87-1.13) 11/24/20 13:15 D-Dimer 1665.17 ng/mlDDU (0-234) H 11/24/20 13:15 Sodium 140 mmol/L (137-145) 11/24/20 11:47 Potassium 4.0 mmol/L (3.6-5.0) 11/24/20 11:47 Chloride 99.7 mmol/L (98-107) 11/24/20 11:47 Carbon Dioxide 23 mmol/L (22-30) 11/24/20 11:47 Anion Gap 21 mmol/L 11/24/20 11:47 BUN 12 mg/dL (9-20) 11/24/20 11:47 Creatinine 0.6 mg/dL (0.8-1.3) L 11/24/20 11:47 Estimated GFR > 60 ml/min 11/24/20 11:47 BUN/Creatinine Ratio 20 % 11/24/20 11:47 Glucose 113 mg/dL (75-100) H 11/24/20 11:47 Lactic Acid 1.80 mmol/L (0.7-2.0) 11/24/20 14:59 Calcium 9.1 mg/dL (8.4-10.2) 11/24/20 11:47 Magnesium 2.00 mg/dL (1.7-2.3) 11/24/20 13:15 Total Bilirubin 0.70 mg/dL (0.1-1.2) 11/24/20 11:47 AST 25 units/L (5-40) 11/24/20 11:47 ALT 26 units/L (7-56) 11/24/20 11:47 Alkaline Phosphatase 90 units/L (35-129) 11/24/20 11:47 Total Creatine Kinase 62 units/L (55-170) 11/24/20 13:15 Troponin T < 0.010 ng/mL (0.00-0.029) 11/24/20 13:15 Total Protein 7.3 g/dL (6.3-8.2) 11/24/20 11:47 Albumin 3.4 g/dL (3.9-5) L 11/24/20 11:47 Albumin/Globulin Ratio 0.9 % 11/24/20 11:47 Lipase 7 units/L (13-60) L 11/24/20 11:47 Blood Type A POSITIVE 11/24/20 13:15 Antibody Screen Negative 11/24/20 13:15 Short CBC 11/24/20 Range/Units 11:47 WBC 39.9 H (4.5-11.0) K/mm3 Hgb 14.8 (11.8-15.2) gm/dl Hct 44.9 (35.5-45.6) % Plt Count 440 (140-440) K/mm3 [facility] [place] 11/24/20 11:47 Sodium 140 Potassium 4.0 Chloride 99.7 Carbon Dioxide 23 BUN 12 Creatinine 0.6 L Glucose 113 H Calcium 9.1 Cardiac Enzymes 11/24/20 Range/Units 13:15 Total Creatine Kinase 62 (55-170) units/L Troponin T < 0.010 (0.00-0.029) ng/mL Liver Function 11/24/20 Range/Units 11:47 Total Bilirubin 0.70 (0.1-1.2) mg/dL AST 25 (5-40) units/L ALT 26 (7-56) units/L Alkaline Phosphatase 90 (35-129) units/L Albumin 3.4 L (3.9-5) g/dL Short CBC 11/24/20 Range/Units 11:47 WBC 39.9 H (4.5-11.0) K/mm3 Hgb 14.8 (11.8-15.2) gm/dl Hct 44.9 (35.5-45.6) % Plt Count 440 (140-440) K/mm3 [facility] [place] 11/24/20 11:47 Sodium 140 Potassium 4.0 Chloride 99.7 Carbon Dioxide 23 BUN 12 Creatinine 0.6 L Glucose 113 H Calcium 9.1 Cardiac Enzymes 11/24/20 Range/Units 13:15 Total Creatine Kinase 62 (55-170) units/L Troponin T < 0.010 (0.00-0.029) ng/mL Liver Function 11/24/20 Range/Units 11:47 Total Bilirubin 0.70 (0.1-1.2) mg/dL AST 25 (5-40) units/L ALT 26 (7-56) units/L Alkaline Phosphatase 90 (35-129) units/L Albumin 3.4 L (3.9-5) g/dL Microbiology: Microbiology 11/24/20 14:59 Peripheral/Venous Blood Culture - Preliminary Culture in Progress 11/24/20 14:59 Peripheral/Venous Blood Culture - Preliminary Culture in Progress - Imaging and Cardiology Chest x-ray: report reviewed CT scan - abdomen: report reviewed CT scan - chest: report reviewed Imaging and Cardiology: CT abdomen Large free air and fluid is identified in the abdomen concerning for visceral perforation There are multiple thickened small bowel loops in the left abdomen of uncertain etiology. This is a appearance of a moderate to severe enteritis Bibasilar infiltrates and small left pleural effusion this is more consistent with atelectasis aspiration should be considered No evidence of pulmonary embolism chest CTA Marked atelectasis in both lower lobes worse on the left than the right Free air in the abdomen presumably from recent surgery Markedly thickened loops of bowel in the left upper abdomen. Chest x-ray Possible air under the right diaphragm Subsegmental atelectasis present in the right lung base Assessment and Plan Advance Directives: Yes (Full code) VTE prophylaxis?: Chemical Plan of care discussed with patient/family: Yes - Patient Problems (1) Sepsis Current Visit: Yes Status: Acute Qualifiers: Severe sepsis shock status: without septic shock Plan to address problem: Patient has perforation Sepsis secondary to perforation Broad-spectrum IV antibiotics Surgery consult requested (2) Perforated abdominal viscus Current Visit: Yes Status: Acute Plan to address problem: Surgical consult Patient being taken for surgery (3) Malnutrition of mild degree Current Visit: Yes Status: Acute Plan to address problem: dietitian consult (4) Colonic mass Current Visit: Yes Status: Chronic Plan to address problem: S/p resection (5) DVT prophylaxis Current Visit: No Status: Acute Plan to address problem: On SCDs and GI prophylaxis
[2020-11-24] MEDS ORDERED: D5NS W/KCL 20 MEQ 20 MEQ/1,000 ML BAG IV SCH (21:00)
[2020-11-24] MEDS: KETOROLAC 30 MG/1 ML INJ IV SCH (21:15)
[2020-11-25] MEDS ORDERED: ACETAMINOPHEN 325 MG TAB PO PRN (00:32)
[2020-11-25] MEDS ORDERED: METOCLOPRAMIDE 10 MG/2 ML INJ IV PRN (00:32)
[2020-11-25] MEDS ORDERED: ONDANSETRON 4 MG/2 ML INJ IV PRN (00:32)
[2020-11-25] MEDS ORDERED: D5W/0.9% NACL 1,000 ML IV SCH (01:00)
[2020-11-25] MEDS: FAMOTIDINE 20 MG/2 ML INJ IV SCH ×3 (01:14→23:21)
[2020-11-25] MEDS: HYDROmorphone 1 MG/1 ML INJ IV PRN ×5 (01:14→20:54)
[2020-11-25 03:09] LABS: Hematocrit 45.1 % (35.5-45.6); Hemoglobin 14.9 gm/dl (11.8-15.2); Mean Corpuscular HGB Conc 33 % (32-34); Mean Corpuscular Volume 90 fl (84-94); Platelet Count 431 K/mm3 (140-440); Red Blood Count 5.01 M/mm3 (3.65-5.03); Red Cell Distribution Width 13.8 % (13.2-15.2)
[2020-11-25 03:28] LABS: BUN/Creatinine Ratio 16; Blood Urea Nitrogen 14 mg/dL (9-20); Calcium 7.7 mg/dL (8.4-10.2); Hemolysis Index 3
[2020-11-25 04:10] LABS: Total Cells Counted 100
[2020-11-25 04:11] LABS: RBC Morphology Normal
[2020-11-25] MEDS: KETOROLAC 30 MG/1 ML INJ IV SCH ×3 (04:53→20:45)
[2020-11-25 05:44] LABS: Bilirubin,Urine NEG (Negative); Blood,Urine NEG (Negative); Color,Urine Amber (Yellow); Mucus,Urine 3+ /HPF
--- NOTE | 2020-11-25 08:00 | Progress Note ---
Assessment and Plan Assessment and plan: (1) Sepsis Current Visit: Yes Status: Acute Qualifiers: Severe sepsis shock status: without septic shock Plan to address problem: Patient has perforation Sepsis secondary to perforation Broad-spectrum IV antibiotics Surgery consult requested (2) Perforated abdominal viscus Current Visit: Yes Status: Acute Plan to address problem: Surgical consult Patient being taken for surgery (3) Malnutrition of mild degree Current Visit: Yes Status: Acute Plan to address problem: dietitian consult (4) Colonic mass Current Visit: Yes Status: Chronic Plan to address problem: S/p resection (5) DVT prophylaxis Current Visit: No Status: Acute Plan to address problem: On SCDs and GI prophylaxis 11/25/2020 -Patient has sepsis and on IV Levaquin, Flagyl and IV fluids -Patient admitted for pneumoperitoneum -Patient had surgery by Dr. Ahmadi and the finding was breakdown of proximal colo-colonic anastomosis, edematous omentum, distended proximal jejunum -N.p.o. for now. NG tube in place. -Patient had malignancy recently had partial omentectomy, resection of 10 cm mass of splenic flexure. History Interval history: Patient was seen and evaluated this morning Patient admitted for perforated viscus Status post surgical repair Patient is complaining abdominal pain Hospitalist Physical - Physical exam Narrative exam: Not in cardiopulmonary distress. The patient appeared well nourished and normally developed. Vital signs as documented. Head exam is unremarkable. No scleral icterus . Neck is without jugular venous distension, thyromegaly, or carotid bruits. Lungs are clear to auscultation. Cardiac exam reveals regular rate and Rhythm. Abdominal exam reveals clean dressing, MADAI tube in place. Hypoactive bowel sounds. NG tube in place. Extremities are nonedematous and both femoral and pedal pulses are normal. 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 No focal weakness. - Constitutional Vitals: Temp Pulse Resp BP Pulse Ox 98.8 F 111 H 16 104/66 93 11/25/20 07:11 11/25/20 07:11 11/25/20 07:11 11/25/20 07:11 11/25/20 07:11 General appearance: Present: mild distress, well-nourished HEART Score - HEART Score Troponin: Troponin T < 0.010 ng/mL (0.00-0.029) 11/24/20 13:15 Results - Labs CBC & Chem 7: 11/25/20 02:33 11/25/20 02:33 Labs: Laboratory Last Values WBC 22.2 K/mm3 (4.5-11.0) H 11/25/20 02:33 RBC 5.01 M/mm3 (3.65-5.03) 11/25/20 02:33 Hgb 14.9 gm/dl (11.8-15.2) 11/25/20 02:33 Hct 45.1 % (35.5-45.6) 11/25/20 02:33 MCV 90 fl (84-94) 11/25/20 02:33 MCH 30 pg (28-32) 11/25/20 02:33 MCHC 33 % (32-34) 11/25/20 02:33 RDW 13.8 % (13.2-15.2) 11/25/20 02:33 Plt Count 431 K/mm3 (140-440) 11/25/20 02:33 Add Manual Diff Complete 11/25/20 02:33 Total Counted 100 11/25/20 02:33 Seg Neutrophils % Electrocardiogram Technician 11/25/20 02:33 Seg Neuts % (Manual) 85.0 % (40.0-70.0) H 11/25/20 02:33 Band Neutrophils % 19.0 % 11/24/20 11:47 Lymphocytes % (Manual) 8.0 % (13.4-35.0) L 11/25/20 02:33 Monocytes % (Manual) 7.0 % (0.0-7.3) 11/25/20 02:33 Nucleated RBC % Not Reportable 11/25/20 02:33 Seg Neutrophils # Man 18.9 K/mm3 (1.8-7.7) H 11/25/20 02:33 Band Neutrophils # 0.0 K/mm3 11/25/20 02:33 Lymphocytes # (Manual) 1.8 K/mm3 (1.2-5.4) 11/25/20 02:33 Abs React Lymphs (Man) 0.0 K/mm3 11/25/20 02:33 Monocytes # (Manual) 1.6 K/mm3 (0.0-0.8) H 11/25/20 02:33 Eosinophils # (Manual) 0.0 K/mm3 (0.0-0.4) 11/25/20 02:33 Basophils # (Manual) 0.0 K/mm3 (0.0-0.1) 11/25/20 02:33 Metamyelocytes # 0.0 K/mm3 11/25/20 02:33 Myelocytes # 0.0 K/mm3 11/25/20 02:33 Promyelocytes # 0.0 K/mm3 11/25/20 02:33 Blast Cells # 0.0 K/mm3 11/25/20 02:33 WBC Morphology Not Reportable 11/25/20 02:33 Hypersegmented Neuts Not Reportable 11/25/20 02:33 Hyposegmented Neuts Not Reportable 11/25/20 02:33 Hypogranular Neuts Not Reportable 11/25/20 02:33 Smudge Cells Not Reportable 11/25/20 02:33 Toxic Granulation Not Reportable 11/25/20 02:33 Toxic Vacuolation Not Reportable 11/25/20 02:33 Dohle Bodies Not Reportable 11/25/20 02:33 Pelger-Huet Anomaly Not Reportable 11/25/20 02:33 Eugenia Rods Not Reportable 11/25/20 02:33 Platelet Estimate Not Reportable 11/25/20 02:33 Clumped Platelets Not Reportable 11/25/20 02:33 Plt Clumps, EDTA Not Reportable 11/25/20 02:33 Large Platelets Not Reportable 11/25/20 02:33 Giant Platelets Not Reportable 11/25/20 02:33 Platelet Satelliting Not Reportable 11/25/20 02:33 Plt Morphology Comment Not Reportable 11/25/20 02:33 RBC Morphology Normal 11/25/20 02:33 Dimorphic RBCs Not Reportable 11/25/20 02:33 Polychromasia Not Reportable 11/25/20 02:33 Hypochromasia Not Reportable 11/25/20 02:33 Poikilocytosis Not Reportable 11/25/20 02:33 Anisocytosis Not Reportable 11/25/20 02:33 Microcytosis Not Reportable 11/25/20 02:33 Macrocytosis Not Reportable 11/25/20 02:33 Spherocytes Not Reportable 11/25/20 02:33 Pappenheimer Bodies Not Reportable 11/25/20 02:33 Sickle Cells Not Reportable 11/25/20 02:33 Target Cells Not Reportable 11/25/20 02:33 Tear Drop Cells Not Reportable 11/25/20 02:33 Ovalocytes Not Reportable 11/25/20 02:33 Helmet Cells Not Reportable 11/25/20 02:33 Hicks-Walters Bodies Not Reportable 11/25/20 02:33 Mcbain Rings Not Reportable 11/25/20 02:33 Drewsey Cells Not Reportable 11/25/20 02:33 Bite Cells Not Reportable 11/25/20 02:33 Crenated Cell Not Reportable 11/25/20 02:33 Elliptocytes Not Reportable 11/25/20 02:33 Acanthocytes (Spur) Not Reportable 11/25/20 02:33 Rouleaux Not Reportable 11/25/20 02:33 Hemoglobin C Crystals Not Reportable 11/25/20 02:33 Schistocytes Not Reportable 11/25/20 02:33 Malaria parasites Not Reportable 11/25/20 02:33 Blade Bodies Not Reportable 11/25/20 02:33 Hem Pathologist Commnt No 11/25/20 02:33 PT 14.7 Sec. (12.2-14.9) 11/24/20 13:15 INR 1.09 (0.87-1.13) 11/24/20 13:15 D-Dimer 1665.17 ng/mlDDU (0-234) H 11/24/20 13:15 Sodium 141 mmol/L (137-145) 11/25/20 02:33 Potassium 5.0 mmol/L (3.6-5.0) D 11/25/20 02:33 Chloride 104.1 mmol/L (98-107) 11/25/20 02:33 Carbon Dioxide 26 mmol/L (22-30) 11/25/20 02:33 Anion Gap 16 mmol/L 11/25/20 02:33 BUN 14 mg/dL (9-20) 11/25/20 02:33 Creatinine 0.9 mg/dL (0.8-1.3) 11/25/20 02:33 Estimated GFR > 60 ml/min 11/25/20 02:33 BUN/Creatinine Ratio 16 % 11/25/20 02:33 Glucose 128 mg/dL (75-100) H 11/25/20 02:33 Hemoglobin A1c 5.7 % (4-6) 11/25/20 00:58 Lactic Acid 1.80 mmol/L (0.7-2.0) 11/24/20 14:59 Calcium 7.7 mg/dL (8.4-10.2) L D 11/25/20 02:33 Phosphorus 5.30 mg/dL (2.5-4.5) H 11/25/20 02:33 Magnesium 1.80 mg/dL (1.7-2.3) 11/25/20 02:33 Total Bilirubin 0.70 mg/dL (0.1-1.2) 11/24/20 11:47 AST 25 units/L (5-40) 11/24/20 11:47 ALT 26 units/L (7-56) 11/24/20 11:47 Alkaline Phosphatase 90 units/L (35-129) 11/24/20 11:47 Total Creatine Kinase 62 units/L (55-170) 11/24/20 13:15 Troponin T < 0.010 ng/mL (0.00-0.029) 11/24/20 13:15 Total Protein 7.3 g/dL (6.3-8.2) 11/24/20 11:47 Albumin 3.4 g/dL (3.9-5) L 11/24/20 11:47 Albumin/Globulin Ratio 0.9 % 11/24/20 11:47 Lipase 7 units/L (13-60) L 11/24/20 11:47 Urine Color Rhonda (Yellow) 11/25/20 05:00 Urine Turbidity Clear (Clear) 11/25/20 05:00 Urine pH 5.0 (5.0-7.0) 11/25/20 05:00 Ur Specific [place] 1.045 (1.003-1.030) H 11/25/20 05:00 Urine Protein 30 mg/dl mg/dL (Negative) 11/25/20 05:00 Urine Glucose (UA) 50 mg/dL (Negative) 11/25/20 05:00 Urine Ketones Neg mg/dL (Negative) 11/25/20 05:00 Urine Blood Neg (Negative) 11/25/20 05:00 Urine Nitrite Neg (Negative) 11/25/20 05:00 Urine Bilirubin Neg (Negative) 11/25/20 05:00 Urine Urobilinogen 4.0 mg/dL (<2.0) 11/25/20 05:00 Ur Leukocyte Esterase Neg (Negative) 11/25/20 05:00 Urine WBC (Auto) 5.0 /HPF (0.0-6.0) 11/25/20 05:00 Urine RBC (Auto) 2.0 /HPF (0.0-6.0) 11/25/20 05:00 U Epithel Cells (Auto) 1.0 /HPF (0-13.0) 11/25/20 05:00 Urine Mucus 3+ /HPF 11/25/20 05:00 Blood Type A POSITIVE 11/24/20 13:15 Antibody Screen Negative 11/24/20 13:15 Microbiology: Microbiology 11/24/20 14:59 Peripheral/Venous Blood Culture - Preliminary Culture in Progress 11/24/20 14:59 Peripheral/Venous Blood Culture - Preliminary Culture in Progress June/IV: Voiding Method Indwelling Catheter Active Medications - Current Medications Current Medications: Generic Name Dose Route Start Last Admin Trade Name Freq PRN Reason Stop Dose Admin Acetaminophen 650 mg 11/25/20 00:32 Acetaminophen 325 Mg Tab PO Q4H PRN Pain MILD(1-3)/Fever >100.5/[place] Enoxaparin Sodium 40 mg 11/25/20 10:00 Enoxaparin 40 Mg/0.4 Ml Inj SUB-Q QDAY@1000 [facility] Famotidine 20 mg 11/25/20 01:00 11/25/20 01:14 Famotidine 20 Mg/2 Ml Inj IV 20 mg BID ION Administration Hydromorphone HCl 0.5 mg 11/24/20 20:17 Hydromorphone 1 Mg/1 Ml Inj IV Q3H PRN Pain, Moderate (4-6) Hydromorphone HCl 1 mg 11/24/20 20:17 11/25/20 05:31 Hydromorphone 1 Mg/1 Ml Inj IV 1 mg Q3H PRN Administration Pain , Severe (7-10) Levofloxacin/Dextrose 500 mg in 100 mls @ 100 mls/hr 11/24/20 10:00 11/24/20 21:54 Levaquin 500mg/100ml IV Not Given Q24H [facility] Protocol Metronidazole 500 mg in 100 mls @ 100 mls/hr 11/25/20 10:00 Flagyl 500 Mg/100 Ml IV Q8H ION Protocol Dextrose/Sodium Chloride 1,000 mls @ 100 mls/hr 11/25/20 01:00 11/25/20 00:54 D5ns IV 100 mls/hr DIRECT ION Administration Ketorolac Tromethamine 30 mg 11/24/20 21:00 11/25/20 04:53 Ketorolac 30 Mg/1 Ml Inj IV 11/29/20 20:59 30 mg Q8H ION Administration Metoclopramide HCl 10 mg 11/25/20 00:32 Metoclopramide 10 Mg/2 Ml Inj IV Q6H PRN Nausea And Vomiting Ondansetron HCl 4 mg 11/25/20 00:32 Ondansetron 4 Mg/2 Ml Inj IV Q3H PRN Nausea And Vomiting Sodium Chloride 10 ml 11/25/20 01:00 11/25/20 01:17 Sodium Chloride 0.9% 10 Ml Flush Syringe IV 10 ml BID ION Administration Sodium Chloride 10 ml 11/25/20 00:32 Sodium Chloride 0.9% 10 Ml Flush Syringe IV PRN PRN LINE FLUSH
[2020-11-25] MEDS ORDERED: SODIUM CHLORIDE 0.9% 1000 ML 1,000 ML IV ONE (08:31)
[2020-11-25] MEDS: ENOXAPARIN 40 MG/0.4 ML INJ SUB-Q SCH (09:37)
--- NOTE | 2020-11-25 09:57 | Post Anesthesia Evaluation ---
- Post Anesthesia Evaluation Patient Participated: Yes Airway Patent: Yes Nausea/Vomiting: No Temp > 96.8F: Yes Pain Manageable: Yes (Being managed with pain medication) Adequeate Hydration: Yes Anesthesia Complications: No Patient on Ventilator: No
[2020-11-25] MEDS ORDERED: metroNIDAZOLE/NS 500 MG/100 ML 500 MG/100 ML BAG IV SCH (10:00)
[2020-11-25] MEDS ORDERED: ENOXAPARIN 30 MG/0.3 ML INJ SUB-Q SCH (10:00)
[2020-11-25] MEDS: D5W/0.45% NACL 1,000 ML IV SCH ×2 (12:36→20:54)
--- NOTE | 2020-11-25 13:13 | Operative Report ---
Operative Report Operative Report: Date: 11/24/20 20:11 Initialization Date: 11/24/20 20:11 Date of procedure: 11/24/20 Pre-op diagnosis: perforated viscus, hx colon cancer Post-op diagnosis: same Findings: 1. Breakdown of proximal portion of colo-colonic anastamosis 2. Congested, ischemic omentum 3. Edematous, distended proximal and mid jejunum IVF: 3L NGT output - 400cc Uo: 200cc Anesthesia: APRYLA Surgeon: HOA TEE Lard Tub Washer: PABLO MARISCAL Estimated blood loss: other (150cc) Pathology: list (1. omentum 2. colocolonic anastamosis) Specimen disposition: to lab Condition: stable Disposition: PACU HPI and indication: Patient is a 40-year-old male who recently underwent laparoscopic left hemicolectomy with colocolonic anastomosis on 11/19/2020 for near obstructing splenic flexure colon mass. He was discharged on postoperative day 3 after an uncomplicated hospital course. On postoperative day 4 the patient started to experience nausea, vomiting, left-sided abdominal pain, subjective fevers. He presented to the emergency room and work-up revealed a leukocytosis, tachycardia and CT scan findings concerning with severe enteritis and pneumoperitoneum. There was concerns for perforated viscus and it was recommended that the patient undergo emergent abdominal surgery. All risks, benefits, alternatives to surgery were discussed with the patient and questions answered. Consent obtained for diagnostic laparoscopy, possible exploratory laparotomy, possible bowel resection, possible colostomy. Suture detail: The patient was identified in the preoperative area, taken back to the operating room and placed on the operating room table in supine position. After anesthesia was induced and NG tube was placed by the anesthesia provider and a June catheter sterilely placed by the circulating nurse. Both arms were tucked and all bony prominences padded appropriately. The abdomen was prepped and draped in usual sterile fashion a timeout was performed. Local anesthetic was infiltrated at the incision site. A incision was made through the patient's prior right upper quadrant incision through which an Optiview 5 mm trocar was placed. The abdomen was insufflated to 15 mmHg without incident. The abdomen was inspected and there was no underlying injury to any of the abdominal structures. There was inflammation present with omentum and small bowel loops adhered to the anterior abdominal wall in the midline and left upper quadrant. The small bowel in the left abdomen appeared very edematous but pink, viable. Due to the severe inflammation limiting visualization laparoscopically it was decided to convert to an exploratory laparotomy. The abdomen was desufflated and a midline incision made from the xiphoid and carried around the umbilicus using a 10 blade. Dissection was carried down through subcutaneous tissues on electrocautery until the fascia was encountered. The previous fascial sutures were removed and there were remainder of the fascia was opened in a cephalad direction using electrocautery over 2 gloved fingers. The small bowel was gently dissected free from the anterior abdominal wall using blunt dissection and a systematic evaluation of the abdomen was performed. During blunt dissection there was seropurulent fluid encountered in the abdomen which was aspirated. There were inflammatory adhesions from the omentum to the anterior abdominal wall small bowel and prior anastomosis. The omentum did appear dusky, congested and ischemic and was gently from the structures using blunt dissection. The omentum was examined thoroughly and most of it did appear nonviable and therefore it was resected using the Enseal. This was passed off the table as a specimen. The small bowel was eviscerated and ran from the liga ment of [place] distally. The proximal small bowel was very indurated and thickened, edematous but viable. As we ran the bowel and inflammatory adhesions to surrounding structures were bluntly dissected. The bowel did transition to decompressed bowel not involved with inflammatory changes in the right side of the abdomen. This was ran to the terminal ileum. No points of obstruction were identified. There was no bowel injury identified upon thorough inspection of all of the small intestine. There were some adhesions from the distal jejunum to the pelvic area. The colocolonic anastomosis was from the small bowel and examined. There was a small opening in the anastomosis at the proximal aspect of the common channel. There was no gross spillage of stool. The colon mesentery was palpated at the area of the anastomosis and there were palpable pulses. The colon appeared pink and viable without areas of ischemia or necrosis. There was some edema of the proximal colon. Due to the breakdown of this portion the anastomosis and friable nature of the colonic tissue it was decided that the best course of action would be to resect the anastomosis and perform a colostomy. The colonic anastomosis was resected using a KRISTEL 75 mm green load stapler x2. This was passed off the table as a specimen. We then mobilized the proximal colon in an avascular plane in order to bring up a right- sided colostomy. Once the colon was mobilized a circular incision was made in the right mid abdomen using electrocautery. The subcutaneous tissue was coned out. The fascia was encountered and a cruciate incision made. The muscle was encountered and spread in the direction of the fibers and the peritoneum was then incised. 3 gloved fingers fit comfortably through the incision and the colon was brought out through the incision without twisting. The mesentery appeared straight. We then turned our attention to the sigmoid colon. The staple line was examined and intact. A Prolene suture was placed at the staple line. At this point we irrigated the abdomen copiously with multiple liters of warm saline. All of the irrigant returned clear. Hemostasis was very carefully ens ured. The NG tube was palpated in the stomach. The stomach was also examined and no areas of injury were identified. The ascending colon and cecum were also examined and there was no areas of injury. A 19 Cong[place] Manolo drain was positioned in the pelvis and brought out through the right lower quadrant incision. This was sutured to the skin using a 3-0 nylon drain stitch. At this point we turned our attention to closing the fascia. The fascia was closed using a #1 looped PDS x2 in a running fashion. The subcutaneous tissue was irrigated and the skin incisions approximated using jaden. Betadine moistened Telfa matias were placed at the inferior portion of the incision x3. At this point we brought her attention to maturing the colostomy. The staple line was cut using a curved Nelson scissor. The colonic mucosa was mildly edematous but pink and viable. There was bleeding from the colonic edges. The colostomy was secured to the fascia in 3 quadrants using 2-0 Vicryl stitch. The colostomy was then matured in Jina fashion using 2-0 Vicryl stitches. It was sutured in circumferentially to the skin. The colostomy was widely patent. At this point the skin was cleansed and cover site dressing applied to the midline incision. A 2 x 2 gauze was applied to the right upper quadrant incision and secured with Tegaderm. A drain dressing was applied. The colostomy dressing was applied in the usual fashion. An abdominal binder was applied to the patient. The patient tolerated the procedure well. All sharp, instrument, sponge counts were correct x2 at the end of the case. The patient was awoken from anesthesia, extubated, taken to PACU in stable condition.
--- NOTE | 2020-11-25 14:27 | Post Anesthesia Evaluation ---
- Post Anesthesia Evaluation Patient Participated: Yes Airway Patent: Yes Stable Respiratory Function: Yes Nausea/Vomiting: No Temp > 96.8F: Yes Pain Manageable: Yes (mostly controlled with pain meds) Adequeate Hydration: Yes Anesthesia Complications: No Block Receding Appropriately: Not Applicable Patient on Ventilator: No Other Comments: has not ambulated yet
--- NOTE | 2020-11-25 14:38 | Consultation ---
History of Present Illness - Reason for Consult Consult date: 11/25/20 - History of Present Illness 40-year-old man with history of colon cancer was recently admitted for nausea vomiting noted to have a small bowel obstruction. Initially admitted on 11/19/2020 for surgical resections which was uncomplicated by time, and he was discharged on postoperative day 3. The day prior to admission he became diaphoretic and had left-sided abdominal pain. He notes he was unable to source was operative medications due to pharmacy livestock. He was taken to the OR yesterday to breakdown of the anastomosis with ischemic omentum. Afebrile since admission Noble count 22 which is improved from 40 on admission. He is currently on Levaquin Flagyl. Blood cultures no growth so far. Imaging personally reviewed: CT abdomen pelvis: Free air concerning for visceral perforation Review of Systems: Bold if positive, otherwise negative General: fevers, chills, rigors HEENT: visual disturbance, diplopia, eye pain Respiratory: cough, sputum, hemoptysis, shortness of breath Cardiovascular: chest pain, syncope Gastrointestinal: nausea, vomiting, diarrhea, abdominal pain Genitourinary: dysuria, hematuria, flank pain Musculoskeletal: neck pain, back pain, joint pain, edema Neurologic: headaches, seizures Hematologic: easy bruising or bleeding Endocrine: night sweats, acute weight loss Skin: rash, jaundice, redness Psychiatric: suicidal, homicidal ideation Past History Past Medical History: cancer Past Surgical History: bowel surgery (Laparoscopic left hemicolectomy with primary anastomosis) Social history: no significant social history Family history: no significant family history Medications and Allergies Allergies Allergy/AdvReac Type Severity Reaction Status Date / Time No Known Allergies Allergy Unverified 11/13/20 08:22 Home Medications Medication Instructions Recorded Confirmed Last Taken Type oxyCODONE /ACETAMINOPHEN [Percocet 1 tab PO Q6HR PRN #24 tablet 11/22/20 11/25/20 Unknown Rx 5/325] Active Meds: Active Medications Acetaminophen (Acetaminophen 325 Mg Tab) 650 mg PO Q4H PRN PRN Reason: Pain MILD(1-3)/Fever >100.5/[place] Enoxaparin Sodium (Enoxaparin 40 Mg/0.4 Ml Inj) 40 mg SUB-Q QDAY@1000 ION Last Admin: 11/25/20 09:37 Dose: 40 mg Documented by: Famotidine (Famotidine 20 Mg/2 Ml Inj) 20 mg IV BID [facility] Last Admin: 11/25/20 09:38 Dose: 20 mg Documented by: Hydromorphone HCl (Hydromorphone 1 Mg/1 Ml Inj) 0.5 mg IV Q3H PRN PRN Reason: Pain, Moderate (4-6) Last Admin: 11/25/20 12:40 Dose: 0.5 mg Documented by: Hydromorphone HCl (Hydromorphone 1 Mg/1 Ml Inj) 1 mg IV Q3H PRN PRN Reason: Pain , Severe (7-10) Last Admin: 11/25/20 05:31 Dose: 1 mg Documented by: Levofloxacin/Dextrose (Levaquin 500mg/100ml) 500 mg in 100 mls @ 100 mls/hr IV Q24H [facility]; Protocol Last Admin: 11/25/20 12:10 Dose: 100 mls/hr Documented by: Metronidazole (Flagyl 500 Mg/100 Ml) 500 mg in 100 mls @ 100 mls/hr IV Q8H [facility]; Protocol Last Admin: 11/25/20 09:38 Dose: 100 mls/hr Documented by: Dextrose/Sodium Chloride (D5/0.45ns) 1,000 mls @ 0 mls/hr IV DIRECT ION Last Admin: 11/25/20 12:36 Dose: 100 mls/hr Documented by: Ketorolac Tromethamine (Ketorolac 30 Mg/1 Ml Inj) 30 mg IV Q8H [facility] Stop: 11/29/20 20:59 Last Admin: 11/25/20 12:13 Dose: 30 mg Documented by: Metoclopramide HCl (Metoclopramide 10 Mg/2 Ml Inj) 10 mg IV Q6H PRN PRN Reason: Nausea And Vomiting Ondansetron HCl (Ondansetron 4 Mg/2 Ml Inj) 4 mg IV Q3H PRN PRN Reason: Nausea And Vomiting Sodium Chloride (Sodium Chloride 0.9% 10 Ml Flush Syringe) 10 ml IV BID [facility] Last Admin: 11/25/20 12:14 Dose: Not Given Documented by: Sodium Chloride (Sodium Chloride 0.9% 10 Ml Flush Syringe) 10 ml IV PRN PRN PRN Reason: LINE FLUSH Physical Examination - Physical Exam Narrative exam: Physical Exam: Constitutional: Alert, cooperative. No acute distress Head, Ears, Nose: Normocephalic, atraumatic. External ears, nose normal Eyes: Conjunctivae/corneas clear. No icterus. No ptosis. Neck: Supple, no meningeal signs Oral: dentition fair, no thrush Cardiovascular: S1, S2 normal. Respiratory: Good air entry, clear to auscultation bilaterally GI: Abdomen dressed, drain and binder in place. Musculoskeletal: No pedal edema, no cyanosis. Skin: No rash or abscess Hem/Lymphatic: No palpable cervical or supraclavicular nodes. No lymphangitis Psych: Mood ok. Affect normal Neurological: Awake, alert, oriented. No gross abnormality - Constitutional Vitals: Vital Signs Temp Pulse Resp BP Pulse Ox 98.7 F 108 H 16 125/66 93 11/25/20 11:44 11/25/20 11:44 11/25/20 11:44 11/25/20 11:44 11/25/20 11:44 Temperature -Last 24 Hours Temperature 98.7 F Temperature 98.8 F Temperature 99.4 F Temperature 98.7 F Temperature 98.4 F Temperature 98.4 F Results - Labs CBC & Chem 7: 11/25/20 02:33 11/25/20 02:33 Labs: Abnormal lab results 11/24/20 11/25/20 11/25/20 Range/Units 11:47 02:33 02:33 WBC 39.9 H 22.2 H (4.5-11.0) K/mm3 RBC 5.05 H (3.65-5.03) M/mm3 Seg Neuts % (Manual) 74.0 H 85.0 H (40.0-70.0) % Lymphocytes % (Manual) 8.0 L (13.4-35.0) % Seg Neutrophils # Man 29.5 H 18.9 H (1.8-7.7) K/mm3 Lymphocytes # (Manual) 0.0 L (1.2-5.4) K/mm3 Monocytes # (Manual) 2.8 H 1.6 H (0.0-0.8) K/mm3 Glucose 128 H (75-100) mg/dL Calcium 7.7 L D (8.4-10.2) mg/dL Phosphorus 5.30 H (2.5-4.5) mg/dL Ur Specific [place] (1.003-1.030) 11/25/20 Range/Units 05:00 WBC (4.5-11.0) K/mm3 RBC (3.65-5.03) M/mm3 Seg Neuts % (Manual) (40.0-70.0) % Lymphocytes % (Manual) (13.4-35.0) % Seg Neutrophils # Man (1.8-7.7) K/mm3 Lymphocytes # (Manual) (1.2-5.4) K/mm3 Monocytes # (Manual) (0.0-0.8) K/mm3 Glucose (75-100) mg/dL Calcium (8.4-10.2) mg/dL Phosphorus (2.5-4.5) mg/dL Ur Specific [place] 1.045 H (1.003-1.030) Assessment and Plan Cultures: Blood culture no growth so far A/P: 32-year-old man past medical history colon cancer with resection recently admitted with abdominal perforation #Abdominal perforation: Had closure and washout performed 11/24/2020. #Colon cancer: s/p resection #Acute sepsis: with leukocytosis and tachycardia Recs: -Stopped Levaquin/Flagyl -Started Zosyn 3.375g q8h -Follow up cultures -Plan to continue antibiotics for 5 days post last surgery, assuming acceptable clinical course. Thank you for the consult, we will continue to follow. MD Chitra Duggan [facility] O: [phone] F: [phone]
--- NOTE | 2020-11-25 16:50 | Progress Note ---
Assessment and Plan 40-year-old male s/p Diagnostic laparoscopy converted to exploratory laparotomy, omentectomy, resection of colocolonic anastomosis and creation of end colostomy, POD 1 Plan: 1. CLD -> do not advance. Will likely have post op ileus. 2. DC NGT 3. IVF 4. DC kumari 5. MADAI drain care and record output q shift 6. Colostomy care - cardiology physician consult ordered and will see patient Monday for ostomy teaching 7. DVT ppx 8. abx per ID 9. Daily labs 10. Awaiting pathology from index operation 11. IS/pulm toilet 12. OOB/ambulate 13. prn pain control Intraoperative findings discussed with patient and his mother at the bedside (with his permission). All questions answered. Dr. Ross will be rounding 11/26/2020 2 11/30/2020. Please call with any qu estions or concerns. Evaluation and treatment of this patient was during the time of the national and state emergency arising from COVID19 coronavirus pandemic. Treatment and procedures performed meet the current and available best practice and guidelines for patient during the COVID pandemic. Subjective Date of service: 11/25/20 Narrative: Patient seen and examined. Complains of abdominal pain near incision and left side of abdomen. Pain medication does help with pain. Has been afebrile. No nausea or vomiting. Complains of sore throat from NG tube. Objective Vital Signs - 12hr 11/25/20 11/25/20 11/25/20 05:00 07:11 11:44 Temperature 99.4 F 98.8 F 98.7 F Pulse Rate 102 H 111 H 108 H Respiratory 18 16 16 Rate Blood Pressure 123/77 104/66 125/66 O2 Sat by Pulse 94 93 93 Oximetry - General physical appearance Narrative Exam: Gen.: Awake, alert, oriented x3. No apparent distress ENT: NG tube with light brown drainage. Trachea midline. No lymphadenopathy. No scleral icterus or conjunctival pallor CV: S1, S2 present Respiratory: No audible wheezes Abdomen: Soft, nondistended, mild tenderness to palpation near midline incision and left side of abdomen. Dressing with some serosanguineous drainage. MADAI drain serosanguineous. Right-sided colostomy is pink with air in the bag. Abdominal binder in place. No rebound, rigidity, guarding Extremities: No clubbing, cyanosis, edema - Labs 11/25/20 02:33 11/25/20 02:33 Diabetes panel 11/25/20 11/25/20 Range/Units 00:58 02:33 Sodium 141 (137-145) mmol/L Potassium 5.0 D (3.6-5.0) mmol/L Chloride 104.1 (98-107) mmol/L Carbon Dioxide 26 (22-30) mmol/L BUN 14 (9-20) mg/dL Creatinine 0.9 (0.8-1.3) mg/dL Glucose 128 H (75-100) mg/dL Hemoglobin A1c 5.7 (4-6) % Calcium 7.7 L D (8.4-10.2) mg/dL Calcium panel 11/25/20 Range/Units 02:33 Calcium 7.7 L D (8.4-10.2) mg/dL Phosphorus 5.30 H (2.5-4.5) mg/dL Pituitary panel 11/25/20 Range/Units 02:33 Sodium 141 (137-145) mmol/L Potassium 5.0 D (3.6-5.0) mmol/L Chloride 104.1 (98-107) mmol/L Carbon Dioxide 26 (22-30) mmol/L BUN 14 (9-20) mg/dL Creatinine 0.9 (0.8-1.3) mg/dL Glucose 128 H (75-100) mg/dL Calcium 7.7 L D (8.4-10.2) mg/dL Adrenal panel 11/25/20 Range/Units 02:33 Sodium 141 (137-145) mmol/L Potassium 5.0 D (3.6-5.0) mmol/L Chloride 104.1 (98-107) mmol/L Carbon Dioxide 26 (22-30) mmol/L BUN 14 (9-20) mg/dL Creatinine 0.9 (0.8-1.3) mg/dL Glucose 128 H (75-100) mg/dL Calcium 7.7 L D (8.4-10.2) mg/dL
[2020-11-25] MEDS ORDERED: PIPERACILLIN/TAZOBACTAM 3.375 3.375 GM/50 ML BAG IV SCH (18:00)
[2020-11-25] MEDS: PIPERACILLIN/TAZOBACTAM 3.375 3.375 GM/50 ML BAG IV SCH ×2 (20:45→23:24)
[2020-11-26] MEDS: D5W/0.45% NACL 1,000 ML IV SCH ×2 (04:28→12:28)
[2020-11-26] MEDS: KETOROLAC 30 MG/1 ML INJ IV SCH ×3 (04:33→22:47)
[2020-11-26 05:02] LABS: Basophils % (Auto) 0.1 % (0.0-1.8); Eosinophils # (Auto) 0.1 K/mm3 (0.0-0.4); Eosinophils % (Auto) 0.4 % (0.0-4.3); Hematocrit 35.2 % (35.5-45.6); Hemoglobin 11.6 gm/dl (11.8-15.2); Lymphocytes # (Auto) 1.2 K/mm3 (1.2-5.4); Lymphocytes % (Auto) 6.9 % (13.4-35.0); Mean Corpuscular HGB Conc 33 % (32-34); Mean Corpuscular Volume 90 fl (84-94); Monocytes # (Auto) 1.1 K/mm3 (0.0-0.8); Monocytes % (Auto) 6.4 % (0.0-7.3); Platelet Count 346 K/mm3 (140-440); Red Cell Distribution Width 14.3 % (13.2-15.2)
[2020-11-26] MEDS: PIPERACILLIN/TAZOBACTAM 3.375 3.375 GM/50 ML BAG IV SCH ×4 (05:11→23:30)
[2020-11-26 05:21] LABS: BUN/Creatinine Ratio 18; Blood Urea Nitrogen 20 mg/dL (9-20); Calcium 7.7 mg/dL (8.4-10.2); Hemolysis Index 2
--- NOTE | 2020-11-26 08:57 | Progress Note ---
Assessment and Plan Assessment and plan: (1) Sepsis Current Visit: Yes Status: Acute Qualifiers: Severe sepsis shock status: without septic shock Plan to address problem: Patient has perforation Sepsis secondary to perforation Broad-spectrum IV antibiotics Surgery consult requested (2) Perforated abdominal viscus Current Visit: Yes Status: Acute Plan to address problem: Surgical consult Patient being taken for surgery (3) Malnutrition of mild degree Current Visit: Yes Status: Acute Plan to address problem: dietitian consult (4) Colonic mass Current Visit: Yes Status: Chronic Plan to address problem: S/p resection (5) DVT prophylaxis Current Visit: No Status: Acute Plan to address problem: On SCDs and GI prophylaxis 11/25/2020 -Patient has sepsis and on IV Levaquin, Flagyl and IV fluids -Patient admitted for pneumoperitoneum -Patient had surgery by Dr. Ahmadi and the finding was breakdown of proximal colo-colonic anastomosis, edematous omentum, distended proximal jejunum -N.p.o. for now. NG tube in place. -Patient had malignancy recently had partial omentectomy, resection of 10 cm mass of splenic flexure. 11/26/2020 -Patient is on IV antibiotics and WBC is trending down -Surgery recommend to be on clear liquid diet, will advance it -Postop management per surgery History Interval history: Patient was seen and evaluated this morning Patient admitted for perforated viscus Status post surgical repair Patient is complaining abdominal pain Hospitalist Physical - Physical exam Narrative exam: Not in cardiopulmonary distress. The patient appeared well nourished and normally developed. Vital signs as documented. Head exam is unremarkable. No scleral icterus . Neck is without jugular venous distension, thyromegaly, or carotid bruits. Lungs are clear to auscultation. Cardiac exam reveals regular rate and Rhythm. Abdominal exam reveals clean dressing, MADAI tube in place. Hypoactive bowel sound s. NG tube in place. Extremities are nonedematous and both femoral and pedal pulses are normal. PRECISION MILLWRIGHT: Alert and oriented 3. No focal weakness. - Constitutional Vitals: Temp Pulse Resp BP Pulse Ox 98.9 F 89 16 115/67 96 11/26/20 07:00 11/26/20 07:00 11/26/20 07:00 11/26/20 07:00 11/26/20 07:00 General appearance: Present: mild distress, well-nourished HEART Score - HEART Score Troponin: Troponin T < 0.010 ng/mL (0.00-0.029) 11/24/20 13:15 Results - Labs CBC & Chem 7: 11/26/20 04:19 11/26/20 04:19 Labs: Laboratory Last Values WBC 17.3 K/mm3 (4.5-11.0) H 11/26/20 04:19 RBC 3.90 M/mm3 (3.65-5.03) 11/26/20 04:19 Hgb 11.6 gm/dl (11.8-15.2) L D 11/26/20 04:19 Hct 35.2 % (35.5-45.6) L D 11/26/20 04:19 MCV 90 fl (84-94) 11/26/20 04:19 MCH 30 pg (28-32) 11/26/20 04:19 MCHC 33 % (32-34) 11/26/20 04:19 RDW 14.3 % (13.2-15.2) 11/26/20 04:19 Plt Count 346 K/mm3 (140-440) 11/26/20 04:19 Lymph % (Auto) 6.9 % (13.4-35.0) L 11/26/20 04:19 [place] % (Auto) 6.4 % (0.0-7.3) 11/26/20 04:19 Eos % (Auto) 0.4 % (0.0-4.3) 11/26/20 04:19 Baso % (Auto) 0.1 % (0.0-1.8) 11/26/20 04:19 Lymph # (Auto) 1.2 K/mm3 (1.2-5.4) 11/26/20 04:19 [place] # (Auto) 1.1 K/mm3 (0.0-0.8) H 11/26/20 04:19 Eos # (Auto) 0.1 K/mm3 (0.0-0.4) 11/26/20 04:19 Baso # (Auto) 0.0 K/mm3 (0.0-0.1) 11/26/20 04:19 Add Manual Diff Complete 11/25/20 02:33 Total Counted 100 11/25/20 02:33 Seg Neutrophils % 86.2 % (40.0-70.0) H 11/26/20 04:19 Seg Neuts % (Manual) 85.0 % (40.0-70.0) H 11/25/20 02:33 Band Neutrophils % 19.0 % 11/24/20 11:47 Lymphocytes % (Manual) 8.0 % (13.4-35.0) L 11/25/20 02:33 Monocytes % (Manual) 7.0 % (0.0-7.3) 11/25/20 02:33 Nucleated RBC % Not Reportable 11/25/20 02:33 Seg Neutrophils # 14.9 K/mm3 (1.8-7.7) H 11/26/20 04:19 Seg Neutrophils # Man 18.9 K/mm3 (1.8-7.7) H 11/25/20 02:33 Band Neutrophils # 0.0 K/mm3 11/25/20 02:33 Lymphocytes # (Manual) 1.8 K/mm3 (1.2-5.4) 11/25/20 02:33 Abs React Lymphs (Man) 0.0 K/mm3 11/25/20 02:33 Monocytes # (Manual) 1.6 K/mm3 (0.0-0.8) H 11/25/20 02:33 Eosinophils # (Manual) 0.0 K/mm3 (0.0-0.4) 11/25/20 02:33 Basophils # (Manual) 0.0 K/mm3 (0.0-0.1) 11/25/20 02:33 Metamyelocytes # 0.0 K/mm3 11/25/20 02:33 Myelocytes # 0.0 K/mm3 11/25/20 02:33 Promyelocytes # 0.0 K/mm3 11/25/20 02:33 Blast Cells # 0.0 K/mm3 11/25/20 02:33 Pathologist Review 11/24/20 11:47 WBC Morphology Not Reportable 11/25/20 02:33 Hypersegmented Neuts Not Reportable 11/25/20 02:33 Hyposegmented Neuts Not Reportable 11/25/20 02:33 Hypogranular Neuts Not Reportable 11/25/20 02:33 Smudge Cells Not Reportable 11/25/20 02:33 Toxic Granulation Not Reportable 11/25/20 02:33 Toxic Vacuolation Not Reportable 11/25/20 02:33 Dohle Bodies Not Reportable 11/25/20 02:33 Pelger-Huet Anomaly Not Reportable 11/25/20 02:33 Eugenia Rods Not Reportable 11/25/20 02:33 Platelet Estimate Not Reportable 11/25/20 02:33 Clumped Platelets Not Reportable 11/25/20 02:33 Plt Clumps, EDTA Not Reportable 11/25/20 02:33 Large Platelets Not Reportable 11/25/20 02:33 Giant Platelets Not Reportable 11/25/20 02:33 Platelet Satelliting Not Reportable 11/25/20 02:33 Plt Morphology Comment Not Reportable 11/25/20 02:33 RBC Morphology Normal 11/25/20 02:33 Dimorphic RBCs Not Reportable 11/25/20 02:33 Polychromasia Not Reportable 11/25/20 02:33 Hypochromasia Not Reportable 11/25/20 02:33 Poikilocytosis Not Reportable 11/25/20 02:33 Anisocytosis Not Reportable 11/25/20 02:33 Microcytosis Not Reportable 11/25/20 02:33 Macrocytosis Not Reportable 11/25/20 02:33 Spherocytes Not Reportable 11/25/20 02:33 Pappenheimer Bodies Not Reportable 11/25/20 02:33 Sickle Cells Not Reportable 11/25/20 02:33 Target Cells Not Reportable 11/25/20 02:33 Tear Drop Cells Not Reportable 11/25/20 02:33 Ovalocytes Not Reportable 11/25/20 02:33 Helmet Cells Not Reportable 11/25/20 02:33 [place] Bodies Not Reportable 11/25/20 02:33 [place] Rings Not Reportable 11/25/20 02:33 Vinay Cells Not Reportable 11/25/20 02:33 Bite Cells Not Reportable 11/25/20 02:33 Crenated Cell Not Reportable 11/25/20 02:33 Elliptocytes Not Reportable 11/25/20 02:33 Acanthocytes (Spur) Not Reportable 11/25/20 02:33 Rouleaux Not Reportable 11/25/20 02:33 Hemoglobin C Crystals Not Reportable 11/25/20 02:33 Schistocytes Not Reportable 11/25/20 02:33 Malaria parasites Not Reportable 11/25/20 02:33 Blade Bodies Not Reportable 11/25/20 02:33 Hem Pathologist Commnt No 11/25/20 02:33 PT 14.7 Sec. (12.2-14.9) 11/24/20 13:15 INR 1.09 (0.87-1.13) 11/24/20 13:15 D-Dimer 1665.17 ng/mlDDU (0-234) H 11/24/20 13:15 Sodium 140 mmol/L (137-145) 11/26/20 04:19 Potassium 4.0 mmol/L (3.6-5.0) 11/26/20 04:19 Chloride 104.5 mmol/L (98-107) 11/26/20 04:19 Carbon Dioxide 29 mmol/L (22-30) 11/26/20 04:19 Anion Gap 11 mmol/L 11/26/20 04:19 BUN 20 mg/dL (9-20) 11/26/20 04:19 Creatinine 1.1 mg/dL (0.8-1.3) 11/26/20 04:19 Estimated GFR > 60 ml/min 11/26/20 04:19 BUN/Creatinine Ratio 18 % 11/26/20 04:19 Glucose 110 mg/dL (75-100) H 11/26/20 04:19 Hemoglobin A1c 5.7 % (4-6) 11/25/20 00:58 Lactic Acid 1.80 mmol/L (0.7-2.0) 11/24/20 14:59 Calcium 7.7 mg/dL (8.4-10.2) L 11/26/20 04:19 Phosphorus 5.30 mg/dL (2.5-4.5) H 11/25/20 02:33 Magnesium 1.80 mg/dL (1.7-2.3) 11/25/20 02:33 Total Bilirubin 0.70 mg/dL (0.1-1.2) 11/24/20 11:47 AST 25 units/L (5-40) 11/24/20 11:47 ALT 26 units/L (7-56) 11/24/20 11:47 Alkaline Phosphatase 90 units/L (35-129) 11/24/20 11:47 Total Creatine Kinase 62 units/L (55-170) 11/24/20 13:15 Troponin T < 0.010 ng/mL (0.00-0.029) 11/24/20 13:15 Total Protein 7.3 g/dL (6.3-8.2) 11/24/20 11:47 Albumin 3.4 g/dL (3.9-5) L 11/24/20 11:47 Albumin/Globulin Ratio 0.9 % 11/24/20 11:47 Lipase 7 units/L (13-60) L 11/24/20 11:47 Urine Color [place]onda (Yellow) 11/25/20 05:00 Urine Turbidity Clear (Clear) 11/25/20 05:00 Urine pH 5.0 (5.0-7.0) 11/25/20 05:00 Ur Specific [place] 1.045 (1.003-1.030) H 11/25/20 05:00 Urine Protein 30 mg/dl mg/dL (Negative) 11/25/20 05:00 Urine Glucose (UA) 50 mg/dL (Negative) 11/25/20 05:00 Urine Ketones Neg mg/dL (Negative) 11/25/20 05:00 Urine Blood Neg (Negative) 11/25/20 05:00 Urine Nitrite Neg (Negative) 11/25/20 05:00 Urine Bilirubin Neg (Negative) 11/25/20 05:00 Urine Urobilinogen 4.0 mg/dL (<2.0) 11/25/20 05:00 Ur Leukocyte Esterase Neg (Negative) 11/25/20 05:00 Urine WBC (Auto) 5.0 /HPF (0.0-6.0) 11/25/20 05:00 Urine RBC (Auto) 2.0 /HPF (0.0-6.0) 11/25/20 05:00 U Epithel Cells (Auto) 1.0 /HPF (0-13.0) 11/25/20 05:00 Urine Mucus 3+ /HPF 11/25/20 05:00 Blood Type A POSITIVE 11/24/20 13:15 Antibody Screen Negative 11/24/20 13:15 Microbiology: Microbiology 11/24/20 14:59 Peripheral/Venous Blood Culture - Preliminary NO GROWTH AFTER 24 HOURS 11/24/20 14:59 Peripheral/Venous Blood Culture - Preliminary NO GROWTH AFTER 24 HOURS June/IV: Voiding Method Urinal Active Medications - Current Medications Current Medications: Generic Name Dose Route Start Last Admin Trade Name Freq PRN Reason Stop Dose Admin Acetaminophen 650 mg 11/25/20 00:32 Acetaminophen 325 Mg Tab PO Q4H PRN Pain MILD(1-3)/Fever >100.5/[place] Enoxaparin Sodium 40 mg 11/25/20 10:00 11/25/20 09:37 Enoxaparin 40 Mg/0.4 Ml Inj SUB-Q 40 mg QDAY@1000 ION Administration Famotidine 20 mg 11/25/20 01:00 11/25/20 23:21 Famotidine 20 Mg/2 Ml Inj IV 20 mg BID ION Administration Hydromorphone HCl 0.5 mg 11/24/20 20:17 11/25/20 12:40 Hydromorphone 1 Mg/1 Ml Inj IV 0.5 mg Q3H PRN Administration Pain, Moderate (4-6) Hydromorphone HCl 1 mg 11/24/20 20:17 11/25/20 20:54 Hydromorphone 1 Mg/1 Ml Inj IV 1 mg Q3H PRN Administration Pain , Severe (7-10) Dextrose/Sodium Chloride 1,000 mls @ 0 mls/hr 11/25/20 13:00 11/26/20 04:28 D5/0.45ns IV 100 mls/hr DIRECT ION Administration Wide Open Piperacillin Sod/Tazobactam Sod 3.375 gm in 50 mls @ 100 mls/hr 11/25/20 20:30 11/26/20 05:11 Zosyn/Ns 3.375gm/50ml IV 100 mls/hr Q6HR ION Administration Protocol Ketorolac Tromethamine 30 mg 11/24/20 21:00 11/26/20 04:33 Ketorolac 30 Mg/1 Ml Inj IV 11/29/20 20:59 30 mg Q8H ION Administration Metoclopramide HCl 10 mg 11/25/20 00:32 Metoclopramide 10 Mg/2 Ml Inj IV Q6H PRN Nausea And Vomiting Ondansetron HCl 4 mg 11/25/20 00:32 Ondansetron 4 Mg/2 Ml Inj IV Q3H PRN Nausea And Vomiting Sodium Chloride 10 ml 11/25/20 01:00 11/25/20 23:22 Sodium Chloride 0.9% 10 Ml Flush Syringe IV 10 ml BID ION Administration Sodium Chloride 10 ml 11/25/20 00:32 Sodium Chloride 0.9% 10 Ml Flush Syringe IV PRN PRN LINE FLUSH Nutrition/Malnutrition Assess - Dietary Evaluation Nutrition/Malnutrition Findings: Nutrition Notes Start: 11/25/20 13:28 Freq: Status: Active Protocol: Document 11/25/20 13:28 (Rec: 11/25/20 13:41 [id number]) Nutrition Notes Need for Assessment generated from: MD Order,Education Current Diagnosis Sepsis Other Pertinent Diagnosis SIRS, perforated abd viscus, colonic mass/cancer Current Diet NPO - ice chips Labs/Tests Phos 5.3 Pertinent Medications D5 .45 NS at 100 ml/hr Height 5 ft 9 in Weight 90.5 kg Usual Body Weight 90.9 kg [place] Body Weight (kg) 72.72 BMI 29.5 Intake Prior to Admission Poor Weight Status Overweight Subjective/Other Information MD consult for education. Pt with perforated bowel and NGT to LIS. Pt reports N/V for 2 weeks. Pt had surgery yesterday. Burn Absent Trauma Absent GI Symptoms None Current % PO Negligible Minimum of two criteria No Energy Intake (non-severe) <75% Estimated Energy Requirement >7 days #1 Nutrition Diagnosis Inadequate oral intake Etiology perforated bowel As Evidenced by Signs and Symptoms pt NPO, NG to LIS Is patient on ventilator? No Is Patient Ambulatory and/or Out of Bed No REE-([facility]-confined to bed) 6911.012 Calculation Used for Recommendations [facility] Additional Notes Protein: (1-1.2g/kg) 91-108g Fluid: 1ml/kcal or per MD Nutrition Intervention Change Diet Order: Advance as able Goal #1 Diet advancement as able Anticipated Discharge Needs: Unable to determine at this time Follow-Up By: 11/26/20 Additional Comments FU for plan of care
[2020-11-26] MEDS: ENOXAPARIN 40 MG/0.4 ML INJ SUB-Q SCH (09:33)
[2020-11-26] MEDS: FAMOTIDINE 20 MG/2 ML INJ IV SCH ×2 (09:34→22:12)
[2020-11-26] MEDS: HYDROmorphone 1 MG/1 ML INJ IV PRN ×3 (09:56→22:15)
--- NOTE | 2020-11-26 13:04 | Progress Note ---
Assessment and Plan 40 year old male POD#2 s/p exlap, colonic anastamosis resection, and colostomy secondary to leak at anastamosis. Afebrile and stable. continue on clear liquids and encourage ambulation. Still waiting on final pathology from initial colon resection surgery for colon mass. Subjective Date of service: 11/26/20 Narrative: No acute events overnight. Pt says he is feeling a bit better than yesterday. Passing gas from ostomy, pain is better controlled. Denies nausea or vomiting. Objective Vital Signs - 12hr 11/26/20 11/26/20 11/26/20 04:31 07:00 09:56 Temperature 99.0 F 98.9 F Pulse Rate 88 89 Respiratory 18 16 18 Rate Blood Pressure 130/75 Blood Pressure 115/67 [Right] O2 Sat by Pulse 93 96 Oximetry 11/26/20 12:29 Temperature Pulse Rate Respiratory 20 Rate Blood Pressure Blood Pressure [Right] O2 Sat by Pulse Oximetry - General physical appearance well developed, no distress, no pain - Respiratory normal expansion, normal respiratory effort - Abdomen soft, not distended, other (ostomy pink, incision c/d/i, appropriately tender to palpation. MADAI drain serous) - Labs 11/26/20 04:19 11/26/20 04:19 Diabetes panel 11/26/20 Range/Units 04:19 Sodium 140 (137-145) mmol/L Potassium 4.0 (3.6-5.0) mmol/L Chloride 104.5 (98-107) mmol/L Carbon Dioxide 29 (22-30) mmol/L BUN 20 (9-20) mg/dL Creatinine 1.1 (0.8-1.3) mg/dL Glucose 110 H (75-100) mg/dL Calcium 7.7 L (8.4-10.2) mg/dL Calcium panel 11/26/20 Range/Units 04:19 Calcium 7.7 L (8.4-10.2) mg/dL Pituitary panel 11/26/20 Range/Units 04:19 Sodium 140 (137-145) mmol/L Potassium 4.0 (3.6-5.0) mmol/L Chloride 104.5 (98-107) mmol/L Carbon Dioxide 29 (22-30) mmol/L BUN 20 (9-20) mg/dL Creatinine 1.1 (0.8-1.3) mg/dL Glucose 110 H (75-100) mg/dL Calcium 7.7 L (8.4-10.2) mg/dL Adrenal panel 11/26/20 Range/Units 04:19 Sodium 140 (137-145) mmol/L Potassium 4.0 (3.6-5.0) mmol/L Chloride 104.5 (98-107) mmol/L Carbon Dioxide 29 (22-30) mmol/L BUN 20 (9-20) mg/dL Creatinine 1.1 (0.8-1.3) mg/dL Glucose 110 H (75-100) mg/dL Calcium 7.7 L (8.4-10.2) mg/dL
--- NOTE | 2020-11-26 14:33 | Progress Note ---
Assessment and Plan Cultures: Blood culture no growth so far A/P: 32-year-old man past medical history colon cancer with resection recently admitted with abdominal perforation #Abdominal perforation: Had closure and washout performed 11/24/2020. #Colon cancer: s/p resection #Acute sepsis: with leukocytosis and tachycardia Recs: -Started Zosyn 3.375g q8h -Follow up cultures -Plan to continue antibiotics for 5 days post last surgery, assuming acceptable clinical course. Thank you for the consult, we will continue to follow. Noemi Lewis MD [facility] ([facility]) O: [phone] F: [phone] Subjective Date of service: 11/26/20 Interval history: Afebrile, white count 17.3. feeling mildly improved. Objective - Exam Narrative Exam: Physical Exam: Constitutional: Alert, cooperative. No acute distress Head, Ears, Nose: Normocephalic, atraumatic. External ears, nose normal Eyes: Conjunctivae/corneas clear. No icterus. No ptosis. Neck: Supple, no meningeal signs Oral: dentition fair, no thrush Cardiovascular: S1, S2 normal. Respiratory: Good air entry, clear to auscultation bilaterally GI: Abdomen dressed, drain and binder in place. Musculoskeletal: No pedal edema, no cyanosis. Skin: No rash or abscess Hem/Lymphatic: No palpable cervical or supraclavicular nodes. Psych: Mood ok. Affect normal Neurological: Awake, alert, oriented. No gross abnormality - Constitutional Vitals: Vital Signs Temp Pulse Resp BP Pulse Ox 98.9 F 89 20 115/67 96 11/26/20 07:00 11/26/20 07:00 11/26/20 12:29 11/26/20 07:00 11/26/20 07:00 Temperature -Last 24 Hours Temperature 98.9 F Temperature 99.0 F Temperature 98.7 F Temperature 99.8 F Temperature 98.3 F - Labs CBC & Chem 7: 11/26/20 04:19 11/26/20 04:19 Labs: Abnormal lab results 11/26/20 11/26/20 Range/Units 04:19 04:19 WBC 17.3 H (4.5-11.0) K/mm3 Hgb 11.6 L D (11.8-15.2) gm/dl Hct 35.2 L D (35.5-45.6) % Lymph % (Auto) 6.9 L (13.4-35.0) % [place] # (Auto) 1.1 H (0.0-0.8) K/mm3 Seg Neutrophils % 86.2 H (40.0-70.0) % Seg Neutrophils # 14.9 H (1.8-7.7) K/mm3 Glucose 110 H (75-100) mg/dL Calcium 7.7 L (8.4-10.2) mg/dL
[2020-11-27] MEDS: D5W/0.45% NACL 1,000 ML IV SCH ×2 (02:58→11:39)
[2020-11-27] MEDS: HYDROmorphone 1 MG/1 ML INJ IV PRN ×4 (03:01→19:49)
[2020-11-27] MEDS: PIPERACILLIN/TAZOBACTAM 3.375 3.375 GM/50 ML BAG IV SCH ×3 (05:43→17:27)
[2020-11-27] MEDS: KETOROLAC 30 MG/1 ML INJ IV SCH ×2 (05:43→13:54)
[2020-11-27 08:10] LABS: Blood Urea Nitrogen 11 mg/dL (9-20); Calcium 7.8 mg/dL (8.4-10.2); Hemolysis Index 2
[2020-11-27 08:20] LABS: BUN/Creatinine Ratio 18
[2020-11-27 08:53] LABS: Basophils % (Auto) 0.4 % (0.0-1.8); Eosinophils # (Auto) 0.2 K/mm3 (0.0-0.4); Eosinophils % (Auto) 1.8 % (0.0-4.3); Hematocrit 31.1 % (35.5-45.6); Hemoglobin 10.4 gm/dl (11.8-15.2); Lymphocytes % (Auto) 8.9 % (13.4-35.0); Mean Corpuscular HGB Conc 33 % (32-34); Mean Corpuscular Volume 89 fl (84-94); Monocytes # (Auto) 0.9 K/mm3 (0.0-0.8); Monocytes % (Auto) 8.3 % (0.0-7.3); Platelet Count 348 K/mm3 (140-440); Red Cell Distribution Width 14.1 % (13.2-15.2)
[2020-11-27] MEDS: FAMOTIDINE 20 MG/2 ML INJ IV SCH ×2 (09:16→21:41)
[2020-11-27] MEDS: ENOXAPARIN 40 MG/0.4 ML INJ SUB-Q SCH (09:16)
--- NOTE | 2020-11-27 09:49 | Progress Note ---
Assessment and Plan Assessment and plan: (1) Sepsis Current Visit: Yes Status: Acute Qualifiers: Severe sepsis shock status: without septic shock Plan to address problem: Patient has perforation Sepsis secondary to perforation Broad-spectrum IV antibiotics Surgery consult requested (2) Perforated abdominal viscus Current Visit: Yes Status: Acute Plan to address problem: Surgical consult Patient being taken for surgery (3) Malnutrition of mild degree Current Visit: Yes Status: Acute Plan to address problem: dietitian consult (4) Colonic mass Current Visit: Yes Status: Chronic Plan to address problem: S/p resection (5) DVT prophylaxis Current Visit: No Status: Acute Plan to address problem: On SCDs and GI prophylaxis 11/25/2020 -Patient has sepsis and on IV Levaquin, Flagyl and IV fluids -Patient admitted for pneumoperitoneum -Patient had surgery by Dr. Ahmadi and the finding was breakdown of proximal colo-colonic anastomosis, edematous omentum, distended proximal jejunum -N.p.o. for now. NG tube in place. -Patient had malignancy recently had partial omentectomy, resection of 10 cm mass of splenic flexure. 11/26/2020 -Patient is on IV antibiotics and WBC is trending down -Surgery recommend to be on clear liquid diet, will advance it -Postop management per surgery 11/27/2020 -Patient was seen by infectious disease yesterday and changed his IV antibiotics to Zosyn. Patient does not have any fever, WBC count trended back to normal. -General surgery is following the patient and continue with clear liquid diet, encourage ambulation -His pathology is still pending. -Discharge is per general surgery recommendation. History Interval history: Patient was seen and evaluated this morning Patient admitted for perforated viscus Status post surgical repair Patient is complaining abdominal pain Hospitalist Physical - Physical exam Narrative exam: Not in cardiopulmonary distress. The patient appeared well nourished and normally developed. Vital signs as documented. Head exam is unremarkable. No scleral icterus . Neck is without jugular venous distension, thyromegaly, or carotid bruits. Lungs are clear to auscultation. Cardiac exam reveals regular rate and Rhythm. Abdominal exam reveals clean dressing, MADAI tube in place. Hypoactive bowel sounds. NG tube in place. Extremities are nonedematous and both femoral and pedal pulses are normal. FEATURES EDITOR: Alert and oriented 3. No focal weakness. - Constitutional Vitals: Temp Pulse Resp BP Pulse Ox 98.4 F 84 18 121/78 96 11/27/20 05:14 11/27/20 05:14 11/27/20 05:14 11/27/20 05:14 11/27/20 05:14 General appearance: Present: mild distress, well-nourished HEART Score - HEART Score Troponin: Troponin T < 0.010 ng/mL (0.00-0.029) 11/24/20 13:15 Results - Labs CBC & Chem 7: 11/27/20 07:10 11/27/20 07:10 Labs: Laboratory Last Values WBC 10.7 K/mm3 (4.5-11.0) 11/27/20 07:10 RBC 3.50 M/mm3 (3.65-5.03) L 11/27/20 07:10 Hgb 10.4 gm/dl (11.8-15.2) L 11/27/20 07:10 Hct 31.1 % (35.5-45.6) L 11/27/20 07:10 MCV 89 fl (84-94) 11/27/20 07:10 MCH 30 pg (28-32) 11/27/20 07:10 MCHC 33 % (32-34) 11/27/20 07:10 RDW 14.1 % (13.2-15.2) 11/27/20 07:10 Plt Count 348 K/mm3 (140-440) 11/27/20 07:10 Lymph % (Auto) 8.9 % (13.4-35.0) L 11/27/20 07:10 [place] % (Auto) 8.3 % (0.0-7.3) H 11/27/20 07:10 Eos % (Auto) 1.8 % (0.0-4.3) 11/27/20 07:10 Baso % (Auto) 0.4 % (0.0-1.8) 11/27/20 07:10 Lymph # (Auto) 1.0 K/mm3 (1.2-5.4) L 11/27/20 07:10 [place] # (Auto) 0.9 K/mm3 (0.0-0.8) H 11/27/20 07:10 Eos # (Auto) 0.2 K/mm3 (0.0-0.4) 11/27/20 07:10 Baso # (Auto) 0.0 K/mm3 (0.0-0.1) 11/27/20 07:10 Add Manual Diff Complete 11/25/20 02:33 Total Counted 100 11/25/20 02:33 Seg Neutrophils % 80.6 % (40.0-70.0) H 11/27/20 07:10 Seg Neuts % (Manual) 85.0 % (40.0-70.0) H 11/25/20 02:33 Band Neutrophils % 19.0 % 11/24/20 11:47 Lymphocytes % (Manual) 8.0 % (13.4-35.0) L 11/25/20 02:33 Monocytes % (Manual) 7.0 % (0.0-7.3) 11/25/20 02:33 Nucleated RBC % Not Reportable 11/25/20 02:33 Seg Neutrophils # 8.6 K/mm3 (1.8-7.7) H 11/27/20 07:10 Seg Neutrophils # Man 18.9 K/mm3 (1.8-7.7) H 11/25/20 02:33 Band Neutrophils # 0.0 K/mm3 11/25/20 02:33 Lymphocytes # (Manual) 1.8 K/mm3 (1.2-5.4) 11/25/20 02:33 Abs React Lymphs (Man) 0.0 K/mm3 11/25/20 02:33 Monocytes # (Manual) 1.6 K/mm3 (0.0-0.8) H 11/25/20 02:33 Eosinophils # (Manual) 0.0 K/mm3 (0.0-0.4) 11/25/20 02:33 Basophils # (Manual) 0.0 K/mm3 (0.0-0.1) 11/25/20 02:33 Metamyelocytes # 0.0 K/mm3 11/25/20 02:33 Myelocytes # 0.0 K/mm3 11/25/20 02:33 Promyelocytes # 0.0 K/mm3 11/25/20 02:33 Blast Cells # 0.0 K/mm3 11/25/20 02:33 Pathologist Review 11/24/20 11:47 WBC Morphology Not Reportable 11/25/20 02:33 Hypersegmented Neuts Not Reportable 11/25/20 02:33 Hyposegmented Neuts Not Reportable 11/25/20 02:33 Hypogranular Neuts Not Reportable 11/25/20 02:33 Smudge Cells Not Reportable 11/25/20 02:33 Toxic Granulation Not Reportable 11/25/20 02:33 Toxic Vacuolation Not Reportable 11/25/20 02:33 Dohle Bodies Not Reportable 11/25/20 02:33 Pelger-Huet Anomaly Not Reportable 11/25/20 02:33 Eugenia Rods Not Reportable 11/25/20 02:33 Platelet Estimate Not Reportable 11/25/20 02:33 Clumped Platelets Not Reportable 11/25/20 02:33 Plt Clumps, EDTA Not Reportable 11/25/20 02:33 Large Platelets Not Reportable 11/25/20 02:33 Giant Platelets Not Reportable 11/25/20 02:33 Platelet Satelliting Not Reportable 11/25/20 02:33 Plt Morphology Comment Not Reportable 11/25/20 02:33 RBC Morphology Normal 11/25/20 02:33 Dimorphic RBCs Not Reportable 11/25/20 02:33 Polychromasia Not Reportable 11/25/20 02:33 Hypochromasia Not Reportable 11/25/20 02:33 Poikilocytosis Not Reportable 11/25/20 02:33 Anisocytosis Not Reportable 11/25/20 02:33 Microcytosis Not Reportable 11/25/20 02:33 Macrocytosis Not Reportable 11/25/20 02:33 Spherocytes Not Reportable 11/25/20 02:33 Pappenheimer Bodies Not Reportable 11/25/20 02:33 Sickle Cells Not Reportable 11/25/20 02:33 Target Cells Not Reportable 11/25/20 02:33 Tear Drop Cells Not Reportable 11/25/20 02:33 Ovalocytes Not Reportable 11/25/20 02:33 Helmet Cells Not Reportable 11/25/20 02:33 [place] Bodies Not Reportable 11/25/20 02:33 [place] Rings Not Reportable 11/25/20 02:33 Vinay Cells Not Reportable 11/25/20 02:33 Bite Cells Not Reportable 11/25/20 02:33 Crenated Cell Not Reportable 11/25/20 02:33 Elliptocytes Not Reportable 11/25/20 02:33 Acanthocytes (Spur) Not Reportable 11/25/20 02:33 Rouleaux Not Reportable 11/25/20 02:33 Hemoglobin C Crystals Not Reportable 11/25/20 02:33 Schistocytes Not Reportable 11/25/20 02:33 Malaria parasites Not Reportable 11/25/20 02:33 Blade Bodies Not Reportable 11/25/20 02:33 Hem Pathologist Commnt No 11/25/20 02:33 PT 14.7 Sec. (12.2-14.9) 11/24/20 13:15 INR 1.09 (0.87-1.13) 11/24/20 13:15 D-Dimer 1665.17 ng/mlDDU (0-234) H 11/24/20 13:15 Sodium 139 mmol/L (137-145) 11/27/20 07:10 Potassium 3.6 mmol/L (3.6-5.0) 11/27/20 07:10 Chloride 105.4 mmol/L (98-107) 11/27/20 07:10 Carbon Dioxide 25 mmol/L (22-30) 11/27/20 07:10 Anion Gap 12 mmol/L 11/27/20 07:10 BUN 11 mg/dL (9-20) 11/27/20 07:10 Creatinine 0.6 mg/dL (0.8-1.3) L 11/27/20 07:10 Estimated GFR > 60 ml/min 11/27/20 07:10 BUN/Creatinine Ratio 18 % 11/27/20 07:10 Glucose 110 mg/dL (75-100) H 11/27/20 07:10 Hemoglobin A1c 5.7 % (4-6) 11/25/20 00:58 Lactic Acid 1.80 mmol/L (0.7-2.0) 11/24/20 14:59 Calcium 7.8 mg/dL (8.4-10.2) L 11/27/20 07:10 Phosphorus 5.30 mg/dL (2.5-4.5) H 11/25/20 02:33 Magnesium 1.80 mg/dL (1.7-2.3) 11/25/20 02:33 Total Bilirubin 0.70 mg/dL (0.1-1.2) 11/24/20 11:47 AST 25 units/L (5-40) 11/24/20 11:47 ALT 26 units/L (7-56) 11/24/20 11:47 Alkaline Phosphatase 90 units/L (35-129) 11/24/20 11:47 Total Creatine Kinase 62 units/L (55-170) 11/24/20 13:15 Troponin T < 0.010 ng/mL (0.00-0.029) 11/24/20 13:15 Total Protein 7.3 g/dL (6.3-8.2) 11/24/20 11:47 Albumin 3.4 g/dL (3.9-5) L 11/24/20 11:47 Albumin/Globulin Ratio 0.9 % 11/24/20 11:47 Lipase 7 units/L (13-60) L 11/24/20 11:47 Urine Color Rhonda (Yellow) 11/25/20 05:00 Urine Turbidity Clear (Clear) 11/25/20 05:00 Urine pH 5.0 (5.0-7.0) 11/25/20 05:00 Ur Specific [place] 1.045 (1.003-1.030) H 11/25/20 05:00 Urine Protein 30 mg/dl mg/dL (Negative) 11/25/20 05:00 Urine Glucose (UA) 50 mg/dL (Negative) 11/25/20 05:00 Urine Ketones Neg mg/dL (Negative) 11/25/20 05:00 Urine Blood Neg (Negative) 11/25/20 05:00 Urine Nitrite Neg (Negative) 11/25/20 05:00 Urine Bilirubin Neg (Negative) 11/25/20 05:00 Urine Urobilinogen 4.0 mg/dL (<2.0) 11/25/20 05:00 Ur Leukocyte Esterase Neg (Negative) 11/25/20 05:00 Urine WBC (Auto) 5.0 /HPF (0.0-6.0) 11/25/20 05:00 Urine RBC (Auto) 2.0 /HPF (0.0-6.0) 11/25/20 05:00 U Epithel Cells (Auto) 1.0 /HPF (0-13.0) 11/25/20 05:00 Urine Mucus 3+ /HPF 11/25/20 05:00 Blood Type A POSITIVE 11/24/20 13:15 Antibody Screen Negative 11/24/20 13:15 Microbiology: Microbiology 11/24/20 14:59 Peripheral/Venous Blood Culture - Preliminary NO GROWTH AFTER 48 HOURS 11/24/20 14:59 Peripheral/Venous Blood Culture - Preliminary NO GROWTH AFTER 48 HOURS June/IV: Voiding Method Urinal Active Medications - Current Medications Current Medications: Generic Name Dose Route Start Last Admin Trade Name Freq PRN Reason Stop Dose Admin Acetaminophen 650 mg 11/25/20 00:32 Acetaminophen 325 Mg Tab PO Q4H PRN Pain MILD(1-3)/Fever >100.5/[place] Enoxaparin Sodium 40 mg 11/25/20 10:00 11/27/20 09:16 Enoxaparin 40 Mg/0.4 Ml Inj SUB-Q 40 mg QDAY@1000 ION Administration Famotidine 20 mg 11/25/20 01:00 11/27/20 09:16 Famotidine 20 Mg/2 Ml Inj IV 20 mg BID ION Administration Hydromorphone HCl 0.5 mg 11/24/20 20:17 11/25/20 12:40 Hydromorphone 1 Mg/1 Ml Inj IV 0.5 mg Q3H PRN Administration Pain, Moderate (4-6) Hydromorphone HCl 1 mg 11/24/20 20:17 11/27/20 03:01 Hydromorphone 1 Mg/1 Ml Inj IV 1 mg Q3H PRN Administration Pain , Severe (7-10) Dextrose/Sodium Chloride 1,000 mls @ 0 mls/hr 11/25/20 13:00 11/27/20 02:58 D5/0.45ns IV 100 mls/hr DIRECT ION Administration Wide Open Piperacillin Sod/Tazobactam Sod 3.375 gm in 50 mls @ 100 mls/hr 11/25/20 20:30 11/27/20 05:43 Zosyn/Ns 3.375gm/50ml IV 100 mls/hr Q6HR ION Administration Protocol Ketorolac Tromethamine 30 mg 11/24/20 21:00 11/27/20 05:43 Ketorolac 30 Mg/1 Ml Inj IV 11/29/20 20:59 30 mg Q8H ION Administration Metoclopramide HCl 10 mg 11/25/20 00:32 Metoclopramide 10 Mg/2 Ml Inj IV Q6H PRN Nausea And Vomiting Ondansetron HCl 4 mg 11/25/20 00:32 Ondansetron 4 Mg/2 Ml Inj IV Q3H PRN Nausea And Vomiting Sodium Chloride 10 ml 11/25/20 01:00 11/27/20 09:16 Sodium Chloride 0.9% 10 Ml Flush Syringe IV 10 ml BID ION Administration Sodium Chloride 10 ml 11/25/20 00:32 Sodium Chloride 0.9% 10 Ml Flush Syringe IV PRN PRN LINE FLUSH Nutrition/Malnutrition Assess - Dietary Evaluation Nutrition/Malnutrition Findings: Nutrition Notes Start: 11/25/20 13:28 Freq: Status: Active Protocol: Document 11/26/20 14:46 IBRAHIMA (Rec: 11/26/20 14:49 [email or web address] [id number]) Nutrition Notes Initial or Follow up Brief Note Current Diagnosis Sepsis Other Pertinent Diagnosis Perforated abdominal viscus s/ p exp lap, colonic mass s/p resection Current Diet Cl liq + Ensure Clear BID + Dipesh BID Subjective/Other Information Pt tolerating cl liq diet. Nutrition Intervention Follow-Up By: 11/29/20 Additional Comments F/U: diet advancement, PO tolerance/intakes
--- NOTE | 2020-11-27 14:03 | Progress Note ---
Assessment and Plan Cultures: Blood culture no growth so far A/P: 32-year-old man past medical history colon cancer with resection recently admitted with abdominal perforation #Abdominal perforation: Had closure and washout performed 11/24/2020. #Colon cancer: s/p resection #Acute sepsis: with leukocytosis and tachycardia Recs: -Started Zosyn 3.375g q8h -Follow up cultures -Plan to continue antibiotics for 5 days post last surgery, assuming acceptable clinical course. Thank you for the consult, we will continue to follow. Dr. Hunt covering this benson bass. Dr. Correa taking over Monday Noemi Lewis MD [facility] ([facility]) O: [phone] F: [phone] Subjective Date of service: 11/27/20 Interval history: Afebrile, normal white count now. Cultures remain negative. Objective - Exam Narrative Exam: Physical Exam: Constitutional: Alert, cooperative. No acute distress Head, Ears, Nose: Normocephalic, atraumatic. External ears, nose normal Eyes: Conjunctivae/corneas clear. No icterus. No ptosis. Neck: Supple, no meningeal signs Oral: dentition fair, no thrush Cardiovascular: S1, S2 normal. Respiratory: Good air entry, clear to auscultation bilaterally GI: Abdomen dressed, drain and binder in place. Musculoskeletal: No pedal edema, no cyanosis. Skin: No rash or abscess Hem/Lymphatic: No palpable cervical or supraclavicular nodes. Psych: Mood ok. Affect normal Neurological: Awake, alert, oriented. No gross abnormality - Constitutional Vitals: Vital Signs Temp Pulse Resp BP Pulse Ox 98.2 F 74 18 111/61 97 11/27/20 08:12 11/27/20 08:12 11/27/20 10:00 11/27/20 08:12 11/27/20 10:00 Temperature -Last 24 Hours Temperature 98.2 F Temperature 98.4 F Temperature 98.7 F Temperature 99.3 F Temperature 98.4 F - Labs CBC & Chem 7: 11/27/20 07:10 11/27/20 07:10 Labs: Abnormal lab results 11/27/20 11/27/20 Range/Units 07:10 07:10 RBC 3.50 L (3.65-5.03) M/mm3 Hgb 10.4 L (11.8-15.2) gm/dl Hct 31.1 L (35.5-45.6) % Lymph % (Auto) 8.9 L (13.4-35.0) % [place] % (Auto) 8.3 H (0.0-7.3) % Lymph # (Auto) 1.0 L (1.2-5.4) K/mm3 [place] # (Auto) 0.9 H (0.0-0.8) K/mm3 Seg Neutrophils % 80.6 H (40.0-70.0) % Seg Neutrophils # 8.6 H (1.8-7.7) K/mm3 Creatinine 0.6 L (0.8-1.3) mg/dL Glucose 110 H (75-100) mg/dL Calcium 7.8 L (8.4-10.2) mg/dL
--- NOTE | 2020-11-27 15:01 | Progress Note ---
Assessment and Plan 40 year old male POD#3 s/p exlap, colonic anastamosis resection, and colostomy secondary to leak at anastamosis. Afebrile and stable. will advance to full liquids. Still waiting on final pathology from initial colon resection surgery for colon mass. Encourage ambulation Subjective Date of service: 11/27/20 Narrative: No acute events overnight. Patient says that pain is better controlled. Reports gas and stool in ostomy bag. Patient tolerating clear liquids without difficulty. Objective Vital Signs - 12hr 11/27/20 11/27/20 11/27/20 05:14 08:12 10:00 Temperature 98.4 F 98.2 F Pulse Rate 84 74 Respiratory 18 16 18 Rate Blood Pressure 121/78 111/61 O2 Sat by Pulse 96 96 97 Oximetry - General physical appearance well developed, well nourished, no distress, no pain - Respiratory normal expansion, normal respiratory effort - Abdomen soft, other (appropriately tender to palpation. ostomy pink with stool in bag. dressing c/d/i) - Labs 11/27/20 07:10 11/27/20 07:10 Diabetes panel 11/27/20 Range/Units 07:10 Sodium 139 (137-145) mmol/L Potassium 3.6 (3.6-5.0) mmol/L Chloride 105.4 (98-107) mmol/L Carbon Dioxide 25 (22-30) mmol/L BUN 11 (9-20) mg/dL Creatinine 0.6 L (0.8-1.3) mg/dL Glucose 110 H (75-100) mg/dL Calcium 7.8 L (8.4-10.2) mg/dL Calcium panel 11/27/20 Range/Units 07:10 Calcium 7.8 L (8.4-10.2) mg/dL Pituitary panel 11/27/20 Range/Units 07:10 Sodium 139 (137-145) mmol/L Potassium 3.6 (3.6-5.0) mmol/L Chloride 105.4 (98-107) mmol/L Carbon Dioxide 25 (22-30) mmol/L BUN 11 (9-20) mg/dL Creatinine 0.6 L (0.8-1.3) mg/dL Glucose 110 H (75-100) mg/dL Calcium 7.8 L (8.4-10.2) mg/dL Adrenal panel 11/27/20 Range/Units 07:10 Sodium 139 (137-145) mmol/L Potassium 3.6 (3.6-5.0) mmol/L Chloride 105.4 (98-107) mmol/L Carbon Dioxide 25 (22-30) mmol/L BUN 11 (9-20) mg/dL Creatinine 0.6 L (0.8-1.3) mg/dL Glucose 110 H (75-100) mg/dL Calcium 7.8 L (8.4-10.2) mg/dL
--- NOTE | 2020-11-27 19:06 | Electrocardiograph Report ---
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
--- NOTE | 2020-11-27 19:15 | Electrocardiograph Report ---
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
[2020-11-28] MEDS: KETOROLAC 30 MG/1 ML INJ IV SCH ×4 (00:18→23:51)
[2020-11-28] MEDS: PIPERACILLIN/TAZOBACTAM 3.375 3.375 GM/50 ML BAG IV SCH ×5 (00:19→23:51)
[2020-11-28] MEDS: HYDROmorphone 1 MG/1 ML INJ IV PRN ×3 (06:51→20:08)
--- NOTE | 2020-11-28 08:25 | Progress Note ---
Assessment and Plan Assessment and plan: (1) Sepsis Current Visit: Yes Status: Acute Qualifiers: Severe sepsis shock status: without septic shock Plan to address problem: Patient has perforation Sepsis secondary to perforation Broad-spectrum IV antibiotics Surgery consult requested (2) Perforated abdominal viscus Current Visit: Yes Status: Acute Plan to address problem: Surgical consult Patient being taken for surgery (3) Malnutrition of mild degree Current Visit: Yes Status: Acute Plan to address problem: dietitian consult (4) Colonic mass Current Visit: Yes Status: Chronic Plan to address problem: S/p resection (5) DVT prophylaxis Current Visit: No Status: Acute Plan to address problem: On SCDs and GI prophylaxis 11/25/2020 -Patient has sepsis and on IV Levaquin, Flagyl and IV fluids -Patient admitted for pneumoperitoneum -Patient had surgery by Dr. Ahmadi and the finding was breakdown of proximal colo-colonic anastomosis, edematous omentum, distended proximal jejunum -N.p.o. for now. NG tube in place. -Patient had malignancy recently had partial omentectomy, resection of 10 cm mass of splenic flexure. 11/26/2020 -Patient is on IV antibiotics and WBC is trending down -Surgery recommend to be on clear liquid diet, will advance it -Postop management per surgery 11/27/2020 -Patient was seen by infectious disease yesterday and changed his IV antibiotics to Zosyn. Patient does not have any fever, WBC count trended back to normal. -General surgery is following the patient and continue with clear liquid diet, encourage ambulation -His pathology is still pending. -Discharge is per general surgery recommendation. 11/29/2019; - patient's diet advanced to full liquid diet. Pathology still pending. Patient is followed with general surgery History Interval history: Patient was seen and evaluated this morning Patient admitted for perforated viscus Status post surgical repair Patient is complaining abdominal pain Hospitalist Physical - Physical exam Narrative exam: Not in cardiopulmonary distress. The patient appeared well nourished and normally developed. Vital signs as documented. Head exam is unremarkable. No scleral icterus . Neck is without jugular venous distension, thyromegaly, or carotid bruits. Lungs are clear to auscultation. Cardiac exam reveals regular rate and Rhythm. Abdominal exam reveals clean dressing, MADAI tube in place. Hypoactive bowel sounds. NG tube in place. Extremities are nonedematous and both femoral and pedal pulses are normal. [employer]CHNICIAN: Alert and oriented 3. No focal weakness. - Constitutional Vitals: Temp Pulse Resp BP Pulse Ox 98.4 F 80 16 123/77 97 11/28/20 07:10 11/28/20 07:10 11/28/20 07:10 11/28/20 07:10 11/28/20 07:10 General appearance: Present: mild distress, well-nourished HEART Score - HEART Score Troponin: Troponin T < 0.010 ng/mL (0.00-0.029) 11/24/20 13:15 Results - Labs CBC & Chem 7: 11/27/20 07:10 11/27/20 07:10 Labs: Laboratory Last Values WBC 10.7 K/mm3 (4.5-11.0) 11/27/20 07:10 RBC 3.50 M/mm3 (3.65-5.03) L 11/27/20 07:10 Hgb 10.4 gm/dl (11.8-15.2) L 11/27/20 07:10 Hct 31.1 % (35.5-45.6) L 11/27/20 07:10 MCV 89 fl (84-94) 11/27/20 07:10 MCH 30 pg (28-32) 11/27/20 07:10 MCHC 33 % (32-34) 11/27/20 07:10 RDW 14.1 % (13.2-15.2) 11/27/20 07:10 Plt Count 348 K/mm3 (140-440) 11/27/20 07:10 Lymph % (Auto) 8.9 % (13.4-35.0) L 11/27/20 07:10 [place] % (Auto) 8.3 % (0.0-7.3) H 11/27/20 07:10 Eos % (Auto) 1.8 % (0.0-4.3) 11/27/20 07:10 Baso % (Auto) 0.4 % (0.0-1.8) 11/27/20 07:10 Lymph # (Auto) 1.0 K/mm3 (1.2-5.4) L 11/27/20 07:10 [place] # (Auto) 0.9 K/mm3 (0.0-0.8) H 11/27/20 07:10 Eos # (Auto) 0.2 K/mm3 (0.0-0.4) 11/27/20 07:10 Baso # (Auto) 0.0 K/mm3 (0.0-0.1) 11/27/20 07:10 Add Manual Diff Complete 11/25/20 02:33 Total Counted 100 11/25/20 02:33 Seg Neutrophils % 80.6 % (40.0-70.0) H 11/27/20 07:10 Seg Neuts % (Manual) 85.0 % (40.0-70.0) H 11/25/20 02:33 Band Neutrophils % 19.0 % 11/24/20 11:47 Lymphocytes % (Manual) 8.0 % (13.4-35.0) L 11/25/20 02:33 Monocytes % (Manual) 7.0 % (0.0-7.3) 11/25/20 02:33 Nucleated RBC % Not Reportable 11/25/20 02:33 Seg Neutrophils # 8.6 K/mm3 (1.8-7.7) H 11/27/20 07:10 Seg Neutrophils # Man 18.9 K/mm3 (1.8-7.7) H 11/25/20 02:33 Band Neutrophils # 0.0 K/mm3 11/25/20 02:33 Lymphocytes # (Manual) 1.8 K/mm3 (1.2-5.4) 11/25/20 02:33 Abs React Lymphs (Man) 0.0 K/mm3 11/25/20 02:33 Monocytes # (Manual) 1.6 K/mm3 (0.0-0.8) H 11/25/20 02:33 Eosinophils # (Manual) 0.0 K/mm3 (0.0-0.4) 11/25/20 02:33 Basophils # (Manual) 0.0 K/mm3 (0.0-0.1) 11/25/20 02:33 Metamyelocytes # 0.0 K/mm3 11/25/20 02:33 Myelocytes # 0.0 K/mm3 11/25/20 02:33 Promyelocytes # 0.0 K/mm3 11/25/20 02:33 Blast Cells # 0.0 K/mm3 11/25/20 02:33 Pathologist Review 11/24/20 11:47 WBC Morphology Not Reportable 11/25/20 02:33 Hypersegmented Neuts Not Reportable 11/25/20 02:33 Hyposegmented Neuts Not Reportable 11/25/20 02:33 Hypogranular Neuts Not Reportable 11/25/20 02:33 Smudge Cells Not Reportable 11/25/20 02:33 Toxic Granulation Not Reportable 11/25/20 02:33 Toxic Vacuolation Not Reportable 11/25/20 02:33 Dohle Bodies Not Reportable 11/25/20 02:33 Pelger-Huet Anomaly Not Reportable 11/25/20 02:33 Eugenia Rods Not Reportable 11/25/20 02:33 Platelet Estimate Not Reportable 11/25/20 02:33 Clumped Platelets Not Reportable 11/25/20 02:33 Plt Clumps, EDTA Not Reportable 11/25/20 02:33 Large Platelets Not Reportable 11/25/20 02:33 Giant Platelets Not Reportable 11/25/20 02:33 Platelet Satelliting Not Reportable 11/25/20 02:33 Plt Morphology Comment Not Reportable 11/25/20 02:33 RBC Morphology Normal 11/25/20 02:33 Dimorphic RBCs Not Reportable 11/25/20 02:33 Polychromasia Not Reportable 11/25/20 02:33 Hypochromasia Not Reportable 11/25/20 02:33 Poikilocytosis Not Reportable 11/25/20 02:33 Anisocytosis Not Reportable 11/25/20 02:33 Microcytosis Not Reportable 11/25/20 02:33 Macrocytosis Not Reportable 11/25/20 02:33 Spherocytes Not Reportable 11/25/20 02:33 Pappenheimer Bodies Not Reportable 11/25/20 02:33 Sickle Cells Not Reportable 11/25/20 02:33 Target Cells Not Reportable 11/25/20 02:33 Tear Drop Cells Not Reportable 11/25/20 02:33 Ovalocytes Not Reportable 11/25/20 02:33 Helmet Cells Not Reportable 11/25/20 02:33 Hicks-Front Royal Bodies Not Reportable 11/25/20 02:33 [place] Rings Not Reportable 11/25/20 02:33 [place] Cells Not Reportable 11/25/20 02:33 Bite Cells Not Reportable 11/25/20 02:33 Crenated Cell Not Reportable 11/25/20 02:33 Elliptocytes Not Reportable 11/25/20 02:33 Acanthocytes (Spur) Not Reportable 11/25/20 02:33 Rouleaux Not Reportable 11/25/20 02:33 Hemoglobin C Crystals Not Reportable 11/25/20 02:33 Schistocytes Not Reportable 11/25/20 02:33 Malaria parasites Not Reportable 11/25/20 02:33 Blade Bodies Not Reportable 11/25/20 02:33 Hem Pathologist Commnt No 11/25/20 02:33 PT 14.7 Sec. (12.2-14.9) 11/24/20 13:15 INR 1.09 (0.87-1.13) 11/24/20 13:15 D-Dimer 1665.17 ng/mlDDU (0-234) H 11/24/20 13:15 Sodium 139 mmol/L (137-145) 11/27/20 07:10 Potassium 3.6 mmol/L (3.6-5.0) 11/27/20 07:10 Chloride 105.4 mmol/L (98-107) 11/27/20 07:10 Carbon Dioxide 25 mmol/L (22-30) 11/27/20 07:10 Anion Gap 12 mmol/L 11/27/20 07:10 BUN 11 mg/dL (9-20) 11/27/20 07:10 Creatinine 0.6 mg/dL (0.8-1.3) L 11/27/20 07:10 Estimated GFR > 60 ml/min 11/27/20 07:10 BUN/Creatinine Ratio 18 % 11/27/20 07:10 Glucose 110 mg/dL (75-100) H 11/27/20 07:10 Hemoglobin A1c 5.7 % (4-6) 11/25/20 00:58 Lactic Acid 1.80 mmol/L (0.7-2.0) 11/24/20 14:59 Calcium 7.8 mg/dL (8.4-10.2) L 11/27/20 07:10 Phosphorus 5.30 mg/dL (2.5-4.5) H 11/25/20 02:33 Magnesium 1.80 mg/dL (1.7-2.3) 11/25/20 02:33 Total Bilirubin 0.70 mg/dL (0.1-1.2) 11/24/20 11:47 AST 25 units/L (5-40) 11/24/20 11:47 ALT 26 units/L (7-56) 11/24/20 11:47 Alkaline Phosphatase 90 units/L (35-129) 11/24/20 11:47 Total Creatine Kinase 62 units/L (55-170) 11/24/20 13:15 Troponin T < 0.010 ng/mL (0.00-0.029) 11/24/20 13:15 Total Protein 7.3 g/dL (6.3-8.2) 11/24/20 11:47 Albumin 3.4 g/dL (3.9-5) L 11/24/20 11:47 Albumin/Globulin Ratio 0.9 % 11/24/20 11:47 Lipase 7 units/L (13-60) L 11/24/20 11:47 Urine Color Rhonda (Yellow) 11/25/20 05:00 Urine Turbidity Clear (Clear) 11/25/20 05:00 Urine pH 5.0 (5.0-7.0) 11/25/20 05:00 Ur Specific [place] 1.045 (1.003-1.030) H 11/25/20 05:00 Urine Protein 30 mg/dl mg/dL (Negative) 11/25/20 05:00 Urine Glucose (UA) 50 mg/dL (Negative) 11/25/20 05:00 Urine Ketones Neg mg/dL (Negative) 11/25/20 05:00 Urine Blood Neg (Negative) 11/25/20 05:00 Urine Nitrite Neg (Negative) 11/25/20 05:00 Urine Bilirubin Neg (Negative) 11/25/20 05:00 Urine Urobilinogen 4.0 mg/dL (<2.0) 11/25/20 05:00 Ur Leukocyte Esterase Neg (Negative) 11/25/20 05:00 Urine WBC (Auto) 5.0 /HPF (0.0-6.0) 11/25/20 05:00 Urine RBC (Auto) 2.0 /HPF (0.0-6.0) 11/25/20 05:00 U Epithel Cells (Auto) 1.0 /HPF (0-13.0) 11/25/20 05:00 Urine Mucus 3+ /HPF 11/25/20 05:00 Blood Type A POSITIVE 11/24/20 13:15 Antibody Screen Negative 11/24/20 13:15 Microbiology: Microbiology 11/24/20 14:59 Peripheral/Venous Blood Culture - Preliminary NO GROWTH AFTER 72 HOURS 11/24/20 14:59 Peripheral/Venous Blood Culture - Preliminary NO GROWTH AFTER 72 HOURS June/IV: Voiding Method Urinal Active Medications - Current Medications Current Medications: Generic Name Dose Route Start Last Admin Trade Name Freq PRN Reason Stop Dose Admin Acetaminophen 650 mg 11/25/20 00:32 Acetaminophen 325 Mg Tab PO Q4H PRN Pain MILD(1-3)/Fever >100.5/[place] Enoxaparin Sodium 40 mg 11/25/20 10:00 11/27/20 09:16 Enoxaparin 40 Mg/0.4 Ml Inj SUB-Q 40 mg QDAY@1000 ION Administration Famotidine 20 mg 11/25/20 01:00 11/27/20 21:41 Famotidine 20 Mg/2 Ml Inj IV 20 mg BID ION Administration Hydromorphone HCl 0.5 mg 11/24/20 20:17 11/25/20 12:40 Hydromorphone 1 Mg/1 Ml Inj IV 0.5 mg Q3H PRN Administration Pain, Moderate (4-6) Hydromorphone HCl 1 mg 11/24/20 20:17 11/28/20 06:51 Hydromorphone 1 Mg/1 Ml Inj IV 1 mg Q3H PRN Administration Pain , Severe (7-10) Dextrose/Sodium Chloride 1,000 mls @ 0 mls/hr 11/25/20 13:00 11/27/20 11:39 D5/0.45ns IV 100 mls/hr DIRECT ION Administration Wide Open Piperacillin Sod/Tazobactam Sod 3.375 gm in 50 mls @ 100 mls/hr 11/25/20 20:30 11/28/20 06:50 Zosyn/Ns 3.375gm/50ml IV 11/30/20 12:29 100 mls/hr Q6HR ION Administration Protocol Ketorolac Tromethamine 30 mg 11/24/20 21:00 11/28/20 00:18 Ketorolac 30 Mg/1 Ml Inj IV 11/29/20 20:59 30 mg Q8H ION Administration Metoclopramide HCl 10 mg 11/25/20 00:32 Metoclopramide 10 Mg/2 Ml Inj IV Q6H PRN Nausea And Vomiting Ondansetron HCl 4 mg 11/25/20 00:32 Ondansetron 4 Mg/2 Ml Inj IV Q3H PRN Nausea And Vomiting Sodium Chloride 10 ml 11/25/20 01:00 11/27/20 09:16 Sodium Chloride 0.9% 10 Ml Flush Syringe IV 10 ml BID ION Administration Sodium Chloride 10 ml 11/25/20 00:32 Sodium Chloride 0.9% 10 Ml Flush Syringe IV PRN PRN LINE FLUSH Nutrition/Malnutrition Assess - Dietary Evaluation Nutrition/Malnutrition Findings: Nutrition Notes Start: 11/25/20 13:28 Freq: Status: Active Protocol: Document 11/26/20 14:46 [email or web address] (Rec: 11/26/20 14:49 [email or web address] [id number]) Nutrition Notes Initial or Follow up Brief Note Current Diagnosis Sepsis Other Pertinent Diagnosis Perforated abdominal viscus s/ p exp lap, colonic mass s/p resection Current Diet Cl liq + Ensure Clear BID + Dipesh BID Subjective/Other Information Pt tolerating cl liq diet. Nutrition Intervention Follow-Up By: 11/29/20 Additional Comments F/U: diet advancement, PO tolerance/intakes
--- NOTE | 2020-11-28 10:53 | Progress Note ---
Assessment and Plan 40 year old male POD#4 s/p exlap, colonic anastamosis resection, and colostomy secondary to leak at anastamosis. Afebrile and stable. will advance to full liquids. Will add toradol to pain regimen for attempt at better overall pain relief. Encourage ambulation Subjective Date of service: 11/28/20 Narrative: No acute events overnight. Patient says that pain is controlled most the time however he has sharp cramping in shooting abdominal pain that is relieved with pain medication. Patient denies nausea vomiting. Patient continues to have air in stool out of his colostomy, and patient is requesting advancement of diet. Objective Vital Signs - 12hr 11/28/20 11/28/20 11/28/20 00:14 00:18 04:57 Temperature 99.9 F H 98.5 F Pulse Rate 90 79 Respiratory 18 17 18 Rate Blood Pressure Blood Pressure 146/85 129/80 [Right] O2 Sat by Pulse 95 97 Oximetry 11/28/20 11/28/20 06:51 07:10 Temperature 98.4 F Pulse Rate 80 Respiratory 17 16 Rate Blood Pressure 123/77 Blood Pressure [Right] O2 Sat by Pulse 97 Oximetry - General physical appearance well developed, well nourished - Respiratory normal expansion, normal respiratory effort - Abdomen soft, other (incision c/d/i, ostomy pink with air and stool in bag. ) - Labs 11/27/20 07:10 11/27/20 07:10
[2020-11-28] MEDS: D5W/0.45% NACL 1,000 ML IV SCH ×2 (11:42→21:36)
[2020-11-28] MEDS: ENOXAPARIN 40 MG/0.4 ML INJ SUB-Q SCH (11:43)
[2020-11-28] MEDS: FAMOTIDINE 20 MG/2 ML INJ IV SCH ×2 (11:43→21:36)
[2020-11-28] MEDS ORDERED: KETOROLAC 30 MG/1 ML INJ IV SCH (12:00)
--- NOTE | 2020-11-28 13:02 | Progress Note ---
Assessment and Plan Cultures: Blood culture no growth so far A/P: 32-year-old man past medical history colon cancer with resection recently admitted with abdominal perforation #Acute sepsis: with leukocytosis and tachycardia, likely due to perforation. Resolved #Colon perforation: S/p Diagnostic laparoscopy converted to exploratory laparotomy, omentectomy, resection of colocolonic anastomosis and creation of end colostomy om 11/26/2015 #Colon cancer: s/p resection Recs: -Continue Zosyn 3.375g q8h D3 of 5 MD [facility] ([facility]) Office [phone] Subjective Date of service: 11/28/20 Principal diagnosis: Perforated colon Interval history: Patient feels better, pain is controlled. No fever. Denies any nausea, vomiting, diarrhea. Objective - Exam Narrative Exam: General appearance: Alert in NAD pleasant Eyes: anicteric sclerae, moist conjunctivae; no lid-lag; PERRLA HENT: Normocephalic, Atraumatic; normal external ears, nares open, oropharynx clear with moist mucous membranes and no oral thrush Neck: supple, tracheal midline, no JVD Lungs: CTA CV: RRR no murmur Abdomen: Soft, mild tenderness, ostomy bag pink stoma, drain with minimal serous fluid Extremities: no edema, no cyanosis Skin: No rash. Psych: no agitated Neuro: alert and oriented x 3. Moving all extermities - Constitutional Vitals: Vital Signs Temp Pulse Resp BP Pulse Ox 98.8 F 72 18 134/79 97 11/28/20 11:06 11/28/20 11:06 11/28/20 11:06 11/28/20 11:06 11/28/20 11:06 Temperature -Last 24 Hours Temperature 98.8 F Temperature 98.4 F Temperature 98.5 F Temperature 99.9 F Temperature 99.5 F Temperature 98.1 F - Labs CBC & Chem 7: 11/27/20 07:10 11/27/20 07:10
[2020-11-29] MEDS: KETOROLAC 30 MG/1 ML INJ IV SCH ×2 (05:35→13:05)
[2020-11-29] MEDS: PIPERACILLIN/TAZOBACTAM 3.375 3.375 GM/50 ML BAG IV SCH ×3 (05:36→18:26)
[2020-11-29] MEDS: ENOXAPARIN 40 MG/0.4 ML INJ SUB-Q SCH (09:16)
[2020-11-29] MEDS: FAMOTIDINE 20 MG/2 ML INJ IV SCH ×2 (09:16→21:00)
[2020-11-29] MEDS: HYDROmorphone 1 MG/1 ML INJ IV PRN ×2 (09:17→18:25)
[2020-11-29] MEDS: D5W/0.45% NACL 1,000 ML IV SCH ×2 (09:18→20:59)
--- NOTE | 2020-11-29 09:23 | Progress Note ---
Assessment and Plan Assessment and plan: (1) Sepsis Current Visit: Yes Status: Acute Qualifiers: Severe sepsis shock status: without septic shock Plan to address problem: Patient has perforation Sepsis secondary to perforation Broad-spectrum IV antibiotics Surgery consult requested (2) Perforated abdominal viscus Current Visit: Yes Status: Acute Plan to address problem: Surgical consult Patient being taken for surgery (3) Malnutrition of mild degree Current Visit: Yes Status: Acute Plan to address problem: dietitian consult (4) Colonic mass Current Visit: Yes Status: Chronic Plan to address problem: S/p resection (5) DVT prophylaxis Current Visit: No Status: Acute Plan to address problem: On SCDs and GI prophylaxis 11/25/2020 -Patient has sepsis and on IV Levaquin, Flagyl and IV fluids -Patient admitted for pneumoperitoneum -Patient had surgery by Dr. Ahmadi and the finding was breakdown of proximal colo-colonic anastomosis, edematous omentum, distended proximal jejunum -N.p.o. for now. NG tube in place. -Patient had malignancy recently had partial omentectomy, resection of 10 cm mass of splenic flexure. 11/26/2020 -Patient is on IV antibiotics and WBC is trending down -Surgery recommend to be on clear liquid diet, will advance it -Postop management per surgery 11/27/2020 -Patient was seen by infectious disease yesterday and changed his IV antibiotics to Zosyn. Patient does not have any fever, WBC count trended back to normal. -General surgery is following the patient and continue with clear liquid diet, encourage ambulation -His pathology is still pending. -Discharge is per general surgery recommendation. 11/28/2020; - patient's diet advanced to full liquid diet. Pathology still pending. Patient is followed with general surgery 11/29/2020 -Patient tolerated full liquid diet -ID recommend to continue Zosyn -Disposition is per surgery recommendation History Interval history: Patient was seen and evaluated this morning Patient admitted for perforated viscus Status post surgical repair Patient is complaining abdominal pain Hospitalist Physical - Physical exam Narrative exam: Not in cardiopulmonary distress. The patient appeared well nourished and normally developed. Vital signs as documented. Head exam is unremarkable. No scleral icterus . Neck is without jugular venous distension, thyromegaly, or carotid bruits. Lungs are clear to auscultation. Cardiac exam reveals regular rate and Rhythm. Abdominal exam reveals clean dressing, MADAI tube in place. Hypoactive bowel so unds. NG tube in place. Extremities are nonedematous and both femoral and pedal pulses are normal. RESIDENTIAL ENERGY AUDITOR: Alert and oriented 3. No focal weakness. - Constitutional Vitals: Temp Pulse Resp BP Pulse Ox 98.4 F 65 18 142/79 99 11/29/20 08:27 11/29/20 08:27 11/29/20 08:27 11/29/20 08:27 11/29/20 08:27 General appearance: Present: mild distress, well-nourished HEART Score - HEART Score Troponin: Troponin T < 0.010 ng/mL (0.00-0.029) 11/24/20 13:15 Results - Labs CBC & Chem 7: 11/27/20 07:10 11/27/20 07:10 Labs: Laboratory Last Values WBC 10.7 K/mm3 (4.5-11.0) 11/27/20 07:10 RBC 3.50 M/mm3 (3.65-5.03) L 11/27/20 07:10 Hgb 10.4 gm/dl (11.8-15.2) L 11/27/20 07:10 Hct 31.1 % (35.5-45.6) L 11/27/20 07:10 MCV 89 fl (84-94) 11/27/20 07:10 MCH 30 pg (28-32) 11/27/20 07:10 MCHC 33 % (32-34) 11/27/20 07:10 RDW 14.1 % (13.2-15.2) 11/27/20 07:10 Plt Count 348 K/mm3 (140-440) 11/27/20 07:10 Lymph % (Auto) 8.9 % (13.4-35.0) L 11/27/20 07:10 [place] % (Auto) 8.3 % (0.0-7.3) H 11/27/20 07:10 Eos % (Auto) 1.8 % (0.0-4.3) 11/27/20 07:10 Baso % (Auto) 0.4 % (0.0-1.8) 11/27/20 07:10 Lymph # (Auto) 1.0 K/mm3 (1.2-5.4) L 11/27/20 07:10 [place] # (Auto) 0.9 K/mm3 (0.0-0.8) H 11/27/20 07:10 Eos # (Auto) 0.2 K/mm3 (0.0-0.4) 11/27/20 07:10 Baso # (Auto) 0.0 K/mm3 (0.0-0.1) 11/27/20 07:10 Add Manual Diff Complete 11/25/20 02:33 Total Counted 100 11/25/20 02:33 Seg Neutrophils % 80.6 % (40.0-70.0) H 11/27/20 07:10 Seg Neuts % (Manual) 85.0 % (40.0-70.0) H 11/25/20 02:33 Band Neutrophils % 19.0 % 11/24/20 11:47 Lymphocytes % (Manual) 8.0 % (13.4-35.0) L 11/25/20 02:33 Monocytes % (Manual) 7.0 % (0.0-7.3) 11/25/20 02:33 Nucleated RBC % Not Reportable 11/25/20 02:33 Seg Neutrophils # 8.6 K/mm3 (1.8-7.7) H 11/27/20 07:10 Seg Neutrophils # Man 18.9 K/mm3 (1.8-7.7) H 11/25/20 02:33 Band Neutrophils # 0.0 K/mm3 11/25/20 02:33 Lymphocytes # (Manual) 1.8 K/mm3 (1.2-5.4) 11/25/20 02:33 Abs React Lymphs (Man) 0.0 K/mm3 11/25/20 02:33 Monocytes # (Manual) 1.6 K/mm3 (0.0-0.8) H 11/25/20 02:33 Eosinophils # (Manual) 0.0 K/mm3 (0.0-0.4) 11/25/20 02:33 Basophils # (Manual) 0.0 K/mm3 (0.0-0.1) 11/25/20 02:33 Metamyelocytes # 0.0 K/mm3 11/25/20 02:33 Myelocytes # 0.0 K/mm3 11/25/20 02:33 Promyelocytes # 0.0 K/mm3 11/25/20 02:33 Blast Cells # 0.0 K/mm3 11/25/20 02:33 Pathologist Review 11/24/20 11:47 WBC Morphology Not Reportable 11/25/20 02:33 Hypersegmented Neuts Not Reportable 11/25/20 02:33 Hyposegmented Neuts Not Reportable 11/25/20 02:33 Hypogranular Neuts Not Reportable 11/25/20 02:33 Smudge Cells Not Reportable 11/25/20 02:33 Toxic Granulation Not Reportable 11/25/20 02:33 Toxic Vacuolation Not Reportable 11/25/20 02:33 Dohle Bodies Not Reportable 11/25/20 02:33 Pelger-Huet Anomaly Not Reportable 11/25/20 02:33 Eugenia Rods Not Reportable 11/25/20 02:33 Platelet Estimate Not Reportable 11/25/20 02:33 Clumped Platelets Not Reportable 11/25/20 02:33 Plt Clumps, EDTA Not Reportable 11/25/20 02:33 Large Platelets Not Reportable 11/25/20 02:33 Giant Platelets Not Reportable 11/25/20 02:33 Platelet Satelliting Not Reportable 11/25/20 02:33 Plt Morphology Comment Not Reportable 11/25/20 02:33 RBC Morphology Normal 11/25/20 02:33 Dimorphic RBCs Not Reportable 11/25/20 02:33 Polychromasia Not Reportable 11/25/20 02:33 Hypochromasia Not Reportable 11/25/20 02:33 Poikilocytosis Not Reportable 11/25/20 02:33 Anisocytosis Not Reportable 11/25/20 02:33 Microcytosis Not Reportable 11/25/20 02:33 Macrocytosis Not Reportable 11/25/20 02:33 Spherocytes Not Reportable 11/25/20 02:33 Pappenheimer Bodies Not Reportable 11/25/20 02:33 Sickle Cells Not Reportable 11/25/20 02:33 Target Cells Not Reportable 11/25/20 02:33 Tear Drop Cells Not Reportable 11/25/20 02:33 Ovalocytes Not Reportable 11/25/20 02:33 Helmet Cells Not Reportable 11/25/20 02:33 [place] Bodies Not Reportable 11/25/20 02:33 [place] Rings Not Reportable 11/25/20 02:33 [place] Cells Not Reportable 11/25/20 02:33 Bite Cells Not Reportable 11/25/20 02:33 Crenated Cell Not Reportable 11/25/20 02:33 Elliptocytes Not Reportable 11/25/20 02:33 Acanthocytes (Spur) Not Reportable 11/25/20 02:33 Rouleaux Not Reportable 11/25/20 02:33 Hemoglobin C Crystals Not Reportable 11/25/20 02:33 Schistocytes Not Reportable 11/25/20 02:33 Malaria parasites Not Reportable 11/25/20 02:33 Blade Bodies Not Reportable 11/25/20 02:33 Hem Pathologist Commnt No 11/25/20 02:33 PT 14.7 Sec. (12.2-14.9) 11/24/20 13:15 INR 1.09 (0.87-1.13) 11/24/20 13:15 D-Dimer 1665.17 ng/mlDDU (0-234) H 11/24/20 13:15 Sodium 139 mmol/L (137-145) 11/27/20 07:10 Potassium 3.6 mmol/L (3.6-5.0) 11/27/20 07:10 Chloride 105.4 mmol/L (98-107) 11/27/20 07:10 Carbon Dioxide 25 mmol/L (22-30) 11/27/20 07:10 Anion Gap 12 mmol/L 11/27/20 07:10 BUN 11 mg/dL (9-20) 11/27/20 07:10 Creatinine 0.6 mg/dL (0.8-1.3) L 11/27/20 07:10 Estimated GFR > 60 ml/min 11/27/20 07:10 BUN/Creatinine Ratio 18 % 11/27/20 07:10 Glucose 110 mg/dL (75-100) H 11/27/20 07:10 Hemoglobin A1c 5.7 % (4-6) 11/25/20 00:58 Lactic Acid 1.80 mmol/L (0.7-2.0) 11/24/20 14:59 Calcium 7.8 mg/dL (8.4-10.2) L 11/27/20 07:10 Phosphorus 5.30 mg/dL (2.5-4.5) H 11/25/20 02:33 Magnesium 1.80 mg/dL (1.7-2.3) 11/25/20 02:33 Total Bilirubin 0.70 mg/dL (0.1-1.2) 11/24/20 11:47 AST 25 units/L (5-40) 11/24/20 11:47 ALT 26 units/L (7-56) 11/24/20 11:47 Alkaline Phosphatase 90 units/L (35-129) 11/24/20 11:47 Total Creatine Kinase 62 units/L (55-170) 11/24/20 13:15 Troponin T < 0.010 ng/mL (0.00-0.029) 11/24/20 13:15 Total Protein 7.3 g/dL (6.3-8.2) 11/24/20 11:47 Albumin 3.4 g/dL (3.9-5) L 11/24/20 11:47 Albumin/Globulin Ratio 0.9 % 11/24/20 11:47 Lipase 7 units/L (13-60) L 11/24/20 11:47 Urine Color Rhonda (Yellow) 11/25/20 05:00 Urine Turbidity Clear (Clear) 11/25/20 05:00 Urine pH 5.0 (5.0-7.0) 11/25/20 05:00 Ur Specific [place] 1.045 (1.003-1.030) H 11/25/20 05:00 Urine Protein 30 mg/dl mg/dL (Negative) 11/25/20 05:00 Urine Glucose (UA) 50 mg/dL (Negative) 11/25/20 05:00 Urine Ketones Neg mg/dL (Negative) 11/25/20 05:00 Urine Blood Neg (Negative) 11/25/20 05:00 Urine Nitrite Neg (Negative) 11/25/20 05:00 Urine Bilirubin Neg (Negative) 11/25/20 05:00 Urine Urobilinogen 4.0 mg/dL (<2.0) 11/25/20 05:00 Ur Leukocyte Esterase Neg (Negative) 11/25/20 05:00 Urine WBC (Auto) 5.0 /HPF (0.0-6.0) 11/25/20 05:00 Urine RBC (Auto) 2.0 /HPF (0.0-6.0) 11/25/20 05:00 U Epithel Cells (Auto) 1.0 /HPF (0-13.0) 11/25/20 05:00 Urine Mucus 3+ /HPF 11/25/20 05:00 Blood Type A POSITIVE 11/24/20 13:15 Antibody Screen Negative 11/24/20 13:15 Microbiology: Microbiology 11/24/20 14:59 Peripheral/Venous Blood Culture - Preliminary NO GROWTH AFTER 4 DAYS 11/24/20 14:59 Peripheral/Venous Blood Culture - Preliminary NO GROWTH AFTER 4 DAYS June/IV: Voiding Method Urinal Active Medications - Current Medications Current Medications: Generic Name Dose Route Start Last Admin Trade Name Freq PRN Reason Stop Dose Admin Acetaminophen 650 mg 11/25/20 00:32 Acetaminophen 325 Mg Tab PO Q4H PRN Pain MILD(1-3)/Fever >100.5/[place] Enoxaparin Sodium 40 mg 11/25/20 10:00 11/29/20 09:16 Enoxaparin 40 Mg/0.4 Ml Inj SUB-Q 40 mg QDAY@1000 ION Administration Famotidine 20 mg 11/25/20 01:00 11/29/20 09:16 Famotidine 20 Mg/2 Ml Inj IV 20 mg BID ION Administration Hydromorphone HCl 0.5 mg 11/24/20 20:17 11/25/20 12:40 Hydromorphone 1 Mg/1 Ml Inj IV 0.5 mg Q3H PRN Administration Pain, Moderate (4-6) Hydromorphone HCl 1 mg 11/24/20 20:17 11/29/20 09:17 Hydromorphone 1 Mg/1 Ml Inj IV 1 mg Q3H PRN Administration Pain , Severe (7-10) Dextrose/Sodium Chloride 1,000 mls @ 0 mls/hr 11/25/20 13:00 11/29/20 09:18 D5/0.45ns IV 100 mls/hr DIRECT ION Administration Wide Open Piperacillin Sod/Tazobactam Sod 3.375 gm in 50 mls @ 100 mls/hr 11/25/20 20:30 11/29/20 05:36 Zosyn/Ns 3.375gm/50ml IV 11/30/20 12:29 100 mls/hr Q6HR ION Administration Protocol Ketorolac Tromethamine 30 mg 11/24/20 21:00 11/29/20 05:35 Ketorolac 30 Mg/1 Ml Inj IV 11/29/20 20:59 30 mg Q8H ION Administration Metoclopramide HCl 10 mg 11/25/20 00:32 Metoclopramide 10 Mg/2 Ml Inj IV Q6H PRN Nausea And Vomiting Ondansetron HCl 4 mg 11/25/20 00:32 Ondansetron 4 Mg/2 Ml Inj IV Q3H PRN Nausea And Vomiting Sodium Chloride 10 ml 11/25/20 01:00 11/28/20 21:37 Sodium Chloride 0.9% 10 Ml Flush Syringe IV 10 ml BID ION Administration Sodium Chloride 10 ml 11/25/20 00:32 Sodium Chloride 0.9% 10 Ml Flush Syringe IV PRN PRN LINE FLUSH Nutrition/Malnutrition Assess - Dietary Evaluation Nutrition/Malnutrition Findings: Nutrition Notes Start: 11/25/20 13:28 Freq: Status: Active Protocol: Document 11/26/20 14:46 [facility] (Rec: 11/26/20 14:49 [facility] [id number]) Nutrition Notes Initial or Follow up Brief Note Current Diagnosis Sepsis Other Pertinent Diagnosis Perforated abdominal viscus s/ p exp lap, colonic mass s/p resection Current Diet Cl liq + Ensure Clear BID + Dipesh BID Subjective/Other Information Pt tolerating cl liq diet. Nutrition Intervention Follow-Up By: 11/29/20 Additional Comments F/U: diet advancement, PO tolerance/intakes
--- NOTE | 2020-11-29 12:11 | Progress Note ---
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 Afebrile and stable. tolerating soft diet Start on percocet for pain Encourage ambulation Subjective Date of service: 11/29/20 Narrative: No acute events overnight. Patient still complains of episodic pain that keeps him up at night. Patient is ambulating and eating without difficulty however he says that he has a low appetite. Objective Vital Signs - 12hr 11/29/20 11/29/20 11/29/20 00:12 00:21 05:10 Temperature 98.2 F Pulse Rate 69 Respiratory 17 17 18 Rate Blood Pressure 113/64 Blood Pressure [Right] O2 Sat by Pulse 97 Oximetry 11/29/20 11/29/20 05:35 08:27 Temperature 98.4 F Pulse Rate 65 Respiratory 17 18 Rate Blood Pressure Blood Pressure 142/79 [Right] O2 Sat by Pulse 99 Oximetry - General physical appearance well developed, no distress, no pain - Respiratory normal expansion, normal respiratory effort - Abdomen soft, other (appropriately tender to palpation, ostomy pink with air and stool in bag. incision c/d/i) - Labs 11/27/20 07:10 11/27/20 07:10
[2020-11-29] MEDS: oxyCODONE /ACETAMINOPHEN 5-325MG TAB PO PRN (15:10)
[2020-11-29] MEDS ORDERED: diphenhydrAMINE 50 MG/ML VIAL IV ONE (20:00)
[2020-11-30] MEDS: oxyCODONE /ACETAMINOPHEN 5-325MG TAB PO PRN ×2 (00:25→10:20)
[2020-11-30] MEDS: PIPERACILLIN/TAZOBACTAM 3.375 3.375 GM/50 ML BAG IV SCH ×3 (00:26→13:36)
[2020-11-30] MEDS: ZOLPIDEM 5 MG TAB PO PRN ×2 (00:26→21:43)
[2020-11-30] MEDS: ENOXAPARIN 40 MG/0.4 ML INJ SUB-Q SCH (10:14)
[2020-11-30] MEDS: FAMOTIDINE 20 MG/2 ML INJ IV SCH ×2 (10:15→21:45)
--- NOTE | 2020-11-30 11:48 | Progress Note ---
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 Afebrile and stable. tolerating soft diet Pain is controlled. Hopefully can be discharged tomorrow. Encourage ambulation Subjective Date of service: 11/30/20 Narrative: No acute events overnight. Patient says that the Percocet is holding his pain. Patient is ambulating and tolerating soft diet. Objective Vital Signs - 12hr 11/30/20 11/30/20 11/30/20 00:00 00:25 04:59 Temperature 98.2 F Pulse Rate 66 Respiratory 17 17 18 Rate Blood Pressure 120/74 O2 Sat by Pulse 98 Oximetry 11/30/20 07:25 Temperature 98.4 F Pulse Rate 66 Respiratory 18 Rate Blood Pressure 135/82 O2 Sat by Pulse 98 Oximetry - General physical appearance well developed, well nourished, no distress, no pain - Respiratory normal expansion, normal respiratory effort - Abdomen soft, other (appropriately tender, ostomy pink with air and stool in bag. ) - Labs 11/27/20 07:10 11/27/20 07:10
--- NOTE | 2020-11-30 14:07 | Progress Note ---
Assessment and Plan Assessment and plan: (1) Sepsis Current Visit: Yes Status: Acute Qualifiers: Severe sepsis shock status: without septic shock Plan to address problem: Patient has perforation Sepsis secondary to perforation Broad-spectrum IV antibiotics Surgery consult requested (2) Perforated abdominal viscus Current Visit: Yes Status: Acute Plan to address problem: Surgical consult Patient being taken for surgery (3) Malnutrition of mild degree Current Visit: Yes Status: Acute Plan to address problem: dietitian consult (4) Colonic mass Current Visit: Yes Status: Chronic Plan to address problem: S/p resection (5) DVT prophylaxis Current Visit: No Status: Acute Plan to address problem: On SCDs and GI prophylaxis 11/25/2020 -Patient has sepsis and on IV Levaquin, Flagyl and IV fluids -Patient admitted for pneumoperitoneum -Patient had surgery by Dr. Ahmadi and the finding was breakdown of proximal colo-colonic anastomosis, edematous omentum, distended proximal jejunum -N.p.o. for now. NG tube in place. -Patient had malignancy recently had partial omentectomy, resection of 10 cm mass of splenic flexure. 11/26/2020 -Patient is on IV antibiotics and WBC is trending down -Surgery recommend to be on clear liquid diet, will advance it -Postop management per surgery 11/27/2020 -Patient was seen by infectious disease yesterday and changed his IV antibiotics to Zosyn. Patient does not have any fever, WBC count trended back to normal. -General surgery is following the patient and continue with clear liquid diet, encourage ambulation -His pathology is still pending. -Discharge is per general surgery recommendation. 11/28/2020; - patient's diet advanced to full liquid diet. Pathology still pending. Patient is followed with general surgery 11/29/2020 -Patient tolerated full liquid diet -ID recommend to continue Zosyn -Disposition is per surgery recommendation 11/30/2020 -Patient is doing well, pain is better controlled. -Patient can be discharged tomorrow per surgery recommendations History Interval history: Patient was seen and evaluated this morning Patient admitted for perforated viscus Status post surgical repair Patient is complaining abdominal pain Hospitalist Physical - Physical exam Narrative exam: Not in cardiopulmonary distress. The patient appeared well nourished and normally developed. Vital signs as documented. Head exam is unremarkable. No scleral icterus . Neck is without jugular venous distension, thyromegaly, or carotid bruits. Lungs are clear to auscultation. Cardiac exam reveals regular rate and Rhythm. Abdominal exam reveals clean dressing, MADAI tube in place. Hypoactive bowel sounds. NG tube in place. Extremities are nonedematous and both femoral and pedal pulses are normal. HADOOP ARCHITECT: Alert and oriented 3. No focal weakness. - Constitutional Vitals: Temp Pulse Resp BP Pulse Ox 98.9 F 74 18 131/81 97 11/30/20 11:49 11/30/20 11:49 11/30/20 11:49 11/30/20 11:49 11/30/20 11:49 General appearance: Present: mild distress, well-nourished HEART Score - HEART Score Troponin: Troponin T < 0.010 ng/mL (0.00-0.029) 11/24/20 13:15 Results - Labs CBC & Chem 7: 11/27/20 07:10 11/27/20 07:10 Labs: Laboratory Last Values WBC 10.7 K/mm3 (4.5-11.0) 11/27/20 07:10 RBC 3.50 M/mm3 (3.65-5.03) L 11/27/20 07:10 Hgb 10.4 gm/dl (11.8-15.2) L 11/27/20 07:10 Hct 31.1 % (35.5-45.6) L 11/27/20 07:10 MCV 89 fl (84-94) 11/27/20 07:10 MCH 30 pg (28-32) 11/27/20 07:10 MCHC 33 % (32-34) 11/27/20 07:10 RDW 14.1 % (13.2-15.2) 11/27/20 07:10 Plt Count 348 K/mm3 (140-440) 11/27/20 07:10 Lymph % (Auto) 8.9 % (13.4-35.0) L 11/27/20 07:10 Oliver % (Auto) 8.3 % (0.0-7.3) H 11/27/20 07:10 Eos % (Auto) 1.8 % (0.0-4.3) 11/27/20 07:10 Baso % (Auto) 0.4 % (0.0-1.8) 11/27/20 07:10 Lymph # (Auto) 1.0 K/mm3 (1.2-5.4) L 11/27/20 07:10 Oliver # (Auto) 0.9 K/mm3 (0.0-0.8) H 11/27/20 07:10 Eos # (Auto) 0.2 K/mm3 (0.0-0.4) 11/27/20 07:10 Baso # (Auto) 0.0 K/mm3 (0.0-0.1) 11/27/20 07:10 Add Manual Diff Complete 11/25/20 02:33 Total Counted 100 11/25/20 02:33 Seg Neutrophils % 80.6 % (40.0-70.0) H 11/27/20 07:10 Seg Neuts % (Manual) 85.0 % (40.0-70.0) H 11/25/20 02:33 Band Neutrophils % 19.0 % 11/24/20 11:47 Lymphocytes % (Manual) 8.0 % (13.4-35.0) L 11/25/20 02:33 Monocytes % (Manual) 7.0 % (0.0-7.3) 11/25/20 02:33 Nucleated RBC % Not Reportable 11/25/20 02:33 Seg Neutrophils # 8.6 K/mm3 (1.8-7.7) H 11/27/20 07:10 Seg Neutrophils # Man 18.9 K/mm3 (1.8-7.7) H 11/25/20 02:33 Band Neutrophils # 0.0 K/mm3 11/25/20 02:33 Lymphocytes # (Manual) 1.8 K/mm3 (1.2-5.4) 11/25/20 02:33 Abs React Lymphs (Man) 0.0 K/mm3 11/25/20 02:33 Monocytes # (Manual) 1.6 K/mm3 (0.0-0.8) H 11/25/20 02:33 Eosinophils # (Manual) 0.0 K/mm3 (0.0-0.4) 11/25/20 02:33 Basophils # (Manual) 0.0 K/mm3 (0.0-0.1) 11/25/20 02:33 Metamyelocytes # 0.0 K/mm3 11/25/20 02:33 Myelocytes # 0.0 K/mm3 11/25/20 02:33 Promyelocytes # 0.0 K/mm3 11/25/20 02:33 Blast Cells # 0.0 K/mm3 11/25/20 02:33 Pathologist Review 11/24/20 11:47 WBC Morphology Not Reportable 11/25/20 02:33 Hypersegmented Neuts Not Reportable 11/25/20 02:33 Hyposegmented Neuts Not Reportable 11/25/20 02:33 Hypogranular Neuts Not Reportable 11/25/20 02:33 Smudge Cells Not Reportable 11/25/20 02:33 Toxic Granulation Not Reportable 11/25/20 02:33 Toxic Vacuolation Not Reportable 11/25/20 02:33 Dohle Bodies Not Reportable 11/25/20 02:33 Pelger-Huet Anomaly Not Reportable 11/25/20 02:33 Eugenia Rods Not Reportable 11/25/20 02:33 Platelet Estimate Not Reportable 11/25/20 02:33 Clumped Platelets Not Reportable 11/25/20 02:33 Plt Clumps, EDTA Not Reportable 11/25/20 02:33 Large Platelets Not Reportable 11/25/20 02:33 Giant Platelets Not Reportable 11/25/20 02:33 Platelet Satelliting Not Reportable 11/25/20 02:33 Plt Morphology Comment Not Reportable 11/25/20 02:33 RBC Morphology Normal 11/25/20 02:33 Dimorphic RBCs Not Reportable 11/25/20 02:33 Polychromasia Not Reportable 11/25/20 02:33 Hypochromasia Not Reportable 11/25/20 02:33 Poikilocytosis Not Reportable 11/25/20 02:33 Anisocytosis Not Reportable 11/25/20 02:33 Microcytosis Not Reportable 11/25/20 02:33 Macrocytosis Not Reportable 11/25/20 02:33 Spherocytes Not Reportable 11/25/20 02:33 Pappenheimer Bodies Not Reportable 11/25/20 02:33 Sickle Cells Not Reportable 11/25/20 02:33 Target Cells Not Reportable 11/25/20 02:33 Tear Drop Cells Not Reportable 11/25/20 02:33 Ovalocytes Not Reportable 11/25/20 02:33 Helmet Cells Not Reportable 11/25/20 02:33 Hicks-Redan Bodies Not Reportable 11/25/20 02:33 [place] Rings Not Reportable 11/25/20 02:33 [place] Cells Not Reportable 11/25/20 02:33 Bite Cells Not Reportable 11/25/20 02:33 Crenated Cell Not Reportable 11/25/20 02:33 Elliptocytes Not Reportable 11/25/20 02:33 Acanthocytes (Spur) Not Reportable 11/25/20 02:33 Rouleaux Not Reportable 11/25/20 02:33 Hemoglobin C Crystals Not Reportable 11/25/20 02:33 Schistocytes Not Reportable 11/25/20 02:33 Malaria parasites Not Reportable 11/25/20 02:33 Blade Bodies Not Reportable 11/25/20 02:33 Hem Pathologist Commnt No 11/25/20 02:33 PT 14.7 Sec. (12.2-14.9) 11/24/20 13:15 INR 1.09 (0.87-1.13) 11/24/20 13:15 D-Dimer 1665.17 ng/mlDDU (0-234) H 11/24/20 13:15 Sodium 139 mmol/L (137-145) 11/27/20 07:10 Potassium 3.6 mmol/L (3.6-5.0) 11/27/20 07:10 Chloride 105.4 mmol/L (98-107) 11/27/20 07:10 Carbon Dioxide 25 mmol/L (22-30) 11/27/20 07:10 Anion Gap 12 mmol/L 11/27/20 07:10 BUN 11 mg/dL (9-20) 11/27/20 07:10 Creatinine 0.6 mg/dL (0.8-1.3) L 11/27/20 07:10 Estimated GFR > 60 ml/min 11/27/20 07:10 BUN/Creatinine Ratio 18 % 11/27/20 07:10 Glucose 110 mg/dL (75-100) H 11/27/20 07:10 Hemoglobin A1c 5.7 % (4-6) 11/25/20 00:58 Lactic Acid 1.80 mmol/L (0.7-2.0) 11/24/20 14:59 Calcium 7.8 mg/dL (8.4-10.2) L 11/27/20 07:10 Phosphorus 5.30 mg/dL (2.5-4.5) H 11/25/20 02:33 Magnesium 1.80 mg/dL (1.7-2.3) 11/25/20 02:33 Total Bilirubin 0.70 mg/dL (0.1-1.2) 11/24/20 11:47 AST 25 units/L (5-40) 11/24/20 11:47 ALT 26 units/L (7-56) 11/24/20 11:47 Alkaline Phosphatase 90 units/L (35-129) 11/24/20 11:47 Total Creatine Kinase 62 units/L (55-170) 11/24/20 13:15 Troponin T < 0.010 ng/mL (0.00-0.029) 11/24/20 13:15 Total Protein 7.3 g/dL (6.3-8.2) 11/24/20 11:47 Albumin 3.4 g/dL (3.9-5) L 11/24/20 11:47 Albumin/Globulin Ratio 0.9 % 11/24/20 11:47 Lipase 7 units/L (13-60) L 11/24/20 11:47 Urine Color Rhonda (Yellow) 11/25/20 05:00 Urine Turbidity Clear (Clear) 11/25/20 05:00 Urine pH 5.0 (5.0-7.0) 11/25/20 05:00 Ur Specific [place] 1.045 (1.003-1.030) H 11/25/20 05:00 Urine Protein 30 mg/dl mg/dL (Negative) 11/25/20 05:00 Urine Glucose (UA) 50 mg/dL (Negative) 11/25/20 05:00 Urine Ketones Neg mg/dL (Negative) 11/25/20 05:00 Urine Blood Neg (Negative) 11/25/20 05:00 Urine Nitrite Neg (Negative) 11/25/20 05:00 Urine Bilirubin Neg (Negative) 11/25/20 05:00 Urine Urobilinogen 4.0 mg/dL (<2.0) 11/25/20 05:00 Ur Leukocyte Esterase Neg (Negative) 11/25/20 05:00 Urine WBC (Auto) 5.0 /HPF (0.0-6.0) 11/25/20 05:00 Urine RBC (Auto) 2.0 /HPF (0.0-6.0) 11/25/20 05:00 U Epithel Cells (Auto) 1.0 /HPF (0-13.0) 11/25/20 05:00 Urine Mucus 3+ /HPF 11/25/20 05:00 Blood Type A POSITIVE 11/24/20 13:15 Antibody Screen Negative 11/24/20 13:15 Microbiology: Microbiology 11/24/20 14:59 Peripheral/Venous Blood Culture - Final NO GROWTH AFTER 5 DAYS 11/24/20 14:59 Peripheral/Venous Blood Culture - Final NO GROWTH AFTER 5 DAYS June/IV: Voiding Method Urinal Active Medications - Current Medications Current Medications: Generic Name Dose Route Start Last Admin Trade Name Freq PRN Reason Stop Dose Admin Acetaminophen 650 mg 11/25/20 00:32 Acetaminophen 325 Mg Tab PO Q4H PRN Pain MILD(1-3)/Fever >100.5/[place] Enoxaparin Sodium 40 mg 11/25/20 10:00 11/30/20 10:14 Enoxaparin 40 Mg/0.4 Ml Inj SUB-Q 40 mg QDAY@1000 ION Administration Famotidine 20 mg 11/25/20 01:00 11/30/20 10:15 Famotidine 20 Mg/2 Ml Inj IV 20 mg BID ION Administration Hydromorphone HCl 0.5 mg 11/24/20 20:17 11/29/20 18:25 Hydromorphone 1 Mg/1 Ml Inj IV 0.5 mg Q3H PRN Administration Pain, Moderate (4-6) Hydromorphone HCl 1 mg 11/24/20 20:17 11/29/20 09:17 Hydromorphone 1 Mg/1 Ml Inj IV 1 mg Q3H PRN Administration Pain , Severe (7-10) Dextrose/Sodium Chloride 1,000 mls @ 0 mls/hr 11/25/20 13:00 11/29/20 20:59 D5/0.45ns IV 100 mls/hr DIRECT ION Administration Wide Open Metoclopramide HCl 10 mg 11/25/20 00:32 Metoclopramide 10 Mg/2 Ml Inj IV Q6H PRN Nausea And Vomiting Ondansetron HCl 4 mg 11/25/20 00:32 Ondansetron 4 Mg/2 Ml Inj IV Q3H PRN Nausea And Vomiting Oxycodone/Acetaminophen 2 tab 11/29/20 12:07 11/30/20 10:20 Oxycodone /Acetaminophen 5-325mg Tab PO 2 tab Q4H PRN Administration Pain , Severe (7-10) Sodium Chloride 10 ml 11/25/20 01:00 11/30/20 10:15 Sodium Chloride 0.9% 10 Ml Flush Syringe IV 10 ml BID ION Administration Sodium Chloride 10 ml 11/25/20 00:32 11/30/20 00:26 Sodium Chloride 0.9% 10 Ml Flush Syringe IV 10 ml PRN PRN Administration LINE FLUSH Zolpidem Tartrate 5 mg 11/29/20 15:18 11/30/20 00:26 Zolpidem 5 Mg Tab PO 5 mg QHS PRN Administration Sleep Nutrition/Malnutrition Assess - Dietary Evaluation Nutrition/Malnutrition Findings: Nutrition Notes Start: 11/25/20 13:28 Freq: Status: Active Protocol: Document 11/30/20 08:44 [email or web address] (Rec: 11/30/20 08:53 [facility] [id number]) Nutrition Notes Initial or Follow up Reassessment Other Pertinent Diagnosis Sigmoid perforation s/p sigmoidectomy with colostomy, post-op ileus Current Diet GI soft Labs/Tests No current available Pertinent Medications Reviewed Height 5 ft 9 in Weight 90.5 kg [place] Body Weight (kg) 72.72 BMI 29.5 Weight Status Overweight Subjective/Other Information Per MD, pt tolerating soft diet, but c/o low appetite. He has consumed 25% of meals so far. Colostomy bag now contains stool. Percent of energy/protein needs met: 21% energy 18% pro Burn Absent Trauma Absent #1 Nutrition Diagnosis Inadequate oral intake As Evidenced by Signs and Symptoms pt consuming 25% of meals Diagnosis Progress(for reassessment Continues documentation) Is patient on ventilator? No Is Patient Ambulatory and/or Out of Bed Yes REE-([place]-St. Jeor-ambulatory/OOB) [ 2359.994 [id number]] Calculation Used for Recommendations [place]-St Jeor Additional Notes Pro needs 1.25-1.5g/k- 136g/day Fluid needs 1ml/kcal Nutrition Intervention Change Diet Order: Continue current diet Add Supplement/Snack (indicate name/kcal Ensure Clear TID /protein ) Provides kCal: 720 Provides Protein (gm) 24 Goal #1 PO intake of meals plus ONS to meet at least 75% of meals Follow-Up By: 12/02/20 Additional Comments F/U: intakes (meals/ONS)
--- NOTE | 2020-11-30 14:21 | Progress Note ---
Assessment and Plan Cultures: Blood culture no growth so far A/P: 32-year-old man with past medical history colon cancer with resection recently admitted with abdominal perforation #Acute sepsis: with leukocytosis and tachycardia, likely due to perforation. Resolved #Colon perforation: S/p Diagnostic laparoscopy converted to exploratory laparotomy, omentectomy, resection of colocolonic anastomosis and creation of end colostomy on 11/26/2015 #Colon cancer: s/p resection Recs: -Completed antibiotics ID will sign off. Please call with questions. Gris Correa MD, FACP [facility], [facility] O: [phone] F: [phone] Subjective Date of service: 11/30/20 Principal diagnosis: Perforated colon Interval history: No complaints. No fever today. Tolerating oral diet. Objective - Exam Narrative Exam: Physical Exam: Constitutional: Alert, cooperative. No acute distress Head, Ears, Nose: Normocephalic, atraumatic. External ears, nose normal Eyes: Conjunctivae/corneas clear. No icterus. No ptosis. Neck: Supple, no meningeal signs Cardiovascular: S1, S2 normal. Respiratory: Good air entry, clear to auscultation bilaterally GI: Soft, drains present, colostomy present with stool in bag Musculoskeletal: No pedal edema, no cyanosis. Skin: No rash or abscess Hem/Lymphatic: No palpable cervical or supraclavicular nodes. No lymphangitis Psych: Mood ok. Affect normal Neurological: Awake, alert, oriented. No gross abnormality - Constitutional Vitals: Vital Signs Temp Pulse Resp BP Pulse Ox 98.9 F 74 18 131/81 97 11/30/20 11:49 11/30/20 11:49 11/30/20 11:49 11/30/20 11:49 11/30/20 11:49 Temperature -Last 24 Hours Temperature 98.9 F Temperature 98.4 F Temperature 98.2 F Temperature 98.5 F Temperature 99.8 F Temperature 98.5 F - Labs CBC & Chem 7: 11/27/20 07:10 11/27/20 07:10
--- NOTE | 2020-11-30 15:26 | Vascular Lab Report ---
DUPLEX DOPPLER LOWER EXTREMITY VEINS, BILATERAL INDICATION / CLINICAL INFORMATION: Status post surgery, markedly elevated DVT. TECHNIQUE: Duplex doppler imaging was performed through the veins of both lower extremities using socorro ous compression and other maneuvers. COMPARISON: None available. FINDINGS: RIGHT COMMON FEMORAL VEIN: Negative. RIGHT FEMORAL VEIN: Negative. RIGHT POPLITEAL VEIN: Negative. RIGHT CALF VEINS: Negative. LEFT COMMON FEMORAL VEIN: Negative. LEFT FEMORAL VEIN: Negative. LEFT POPLITEAL VEIN: Negative. LEFT CALF VEINS: Negative. ADDITIONAL FINDINGS: None. IMPRESSION: 1. No sonographic evidence for DVT in either lower extremity. Scribed by: Lashell Conde RDMS, RVT Scribed: 11/30/2020 1:03 PM I have reviewed the images, agree with this report, and edited this report as needed. Signer Name: Derrick Perez MD Signed: 11/30/2020 3:21 PM Workstation Name: [id number]
[2020-11-30] MEDS: HYDROmorphone 1 MG/1 ML INJ IV PRN (21:43)
[2020-12-01] MEDS: HYDROmorphone 1 MG/1 ML INJ IV PRN (07:16)
--- NOTE | 2020-12-01 08:14 | Discharge Summary ---
<HOA TEE - Last Filed: 12/01/20 12:22> Providers - Providers Date of Admission: 11/24/20 15:19 Attending physician: PAULA GONSALVES MD 11/24/20 11:59 Consult to Physician [CONS] Urgent Comment: Consulting Provider: HOA TEE Physician Instructions: Reason For Exam: post op pain n/v 11/24/20 20:17 Consult to Wound/ET Nurse [CONS] Routine Reason For Exam: wound eval 11/25/20 Consult to Case Management [CONS] Routine Services Needed at Discharge: Home Health Services Notified:: cm notified 11/25/20 00:42 Consult to Dietitian/Nutrition [CONS] Routine Physician Instructions: Reason For Exam: Reason for Consult: Diet education 11/25/20 00:46 Consult to Physician [CONS] Routine Comment: Consulting Provider: ALEJANDRA GALLARDO Physician Instructions: Reason For Exam: Sepsis Primary care physician: [facility] Hospitalization Condition: Stable Disposition: DC/[place]-06 HOME UNDER HOME [facility] Exam - Constitutional Vitals: Temp Pulse Resp BP Pulse Ox 99.0 F 75 16 139/71 94 12/01/20 07:55 12/01/20 07:55 12/01/20 07:55 12/01/20 07:55 12/01/20 07:55 Plan Activity: other (no heavy lifting of greater than 15-20 lbs for next 4 weeks) Diet: regular Wound: other (Keep jaden covered with dressing. May change daily after showering.) Additional Instructions: May shower. Change dressing daily. Leave jaden in place. Will be removed during your post operative visit at surgeon's office. Please make an appointment to see Dr. Garzon (oncology) Follow up with: HOA TEE DO [Staff Physician] - 7 Days PRIMARY CARE, [Primary Care Provider] - 3-5 Days KEAGAN GARZON MD [Staff Physician] - 7 Days Prescriptions: Zolpidem [Ambien] 5 mg PO QHS PRN #14 tablet PRN Reason: Sleep Docusate Sodium [Colace] 100 mg PO BID PRN #30 capsule PRN Reason: Constipation HYDROcodone/APAP 5-325 [[place] 5/325] 1 each PO Q4HR PRN #30 tablet PRN Reason: Pain , Severe (7-10) Ondansetron [Zofran Odt] 4 mg PO Q8HR #30 tab.rapdis <PAULA GONSALVES - Last Filed: 12/17/20 07:26> Providers - Providers Date of Admission: 11/24/20 15:19 Attending physician: PAULA GONSALVES MD 11/24/20 11:59 Consult to Physician [CONS] Urgent Comment: Consulting Provider: HOA TEE Physician Instructions: Reason For Exam: post op pain n/v 11/24/20 20:17 Consult to Wound/ET Nurse [CONS] Routine Reason For Exam: wound eval 11/25/20 Consult to Case Management [CONS] Routine Services Needed at Discharge: Home Health Services Notified:: cm notified 11/25/20 00:42 Consult to Dietitian/Nutrition [CONS] Routine Physician Instructions: Reason For Exam: Reason for Consult: Diet education 11/25/20 00:46 Consult to Physician [CONS] Routine Comment: Consulting Provider: ALEJANDRA GALLARDO Physician Instructions: Reason For Exam: Sepsis Primary care physician: [facility] Hospitalization Reason for admission: sepsis Hospital course: 40-year-old male with history of colon cancer--recently diagnosed in this hospital with resultant small bowel obstruction. Patient had a splenic flexure mass which was concerning for malignancy. Patient went surgical resection on 11/19/2020. Postop course was uncomplicated. Was able to tolerate clears and was advancing diet as diet. Patient is tolerating diet without nausea or vomiting. No hematochezia or melena. Since last night patient has been having left upper quadrant pain and not able to tolerate anything by mouth. Patient also is having nausea and vomiting. Which is nonbilious. Patient was unable to take any pain medication because he did not fill his prescriptions. No fever or chills.. Patient was seen and evaluated this morning Patient admitted for perforated viscus Status post surgical repair Patient is complaining abdominal pain but stable with percocet He will follow with Oncologist outpatient POD#7 s/p exlap, colonic anastamosis resection, and colostomy secondary to leak at anastamosis. Afebrile and stable. tolerating soft diet (1) Sepsis Current Visit: Yes Status: Acute Qualifiers: Severe sepsis shock status: without septic shock Plan to address problem: Patient has perforation Sepsis secondary to perforation Broad-spectrum IV antibiotics Surgery consult requested (2) Perforated abdominal viscus Current Visit: Yes Status: Acute Plan to address problem: Surgical consult Patient being taken for surgery (3) Malnutrition of mild degree Current Visit: Yes Status: Acute Plan to address problem: dietitian consult (4) Colonic mass Current Visit: Yes Status: Chronic Plan to address problem: S/p resection 11/25/2020 -Patient has sepsis and on IV Levaquin, Flagyl and IV fluids -Patient admitted for pneumoperitoneum -Patient had surgery by Dr. Tee and the finding was breakdown of proximal colo-colonic anastomosis, edematous omentum, distended proximal jejunum -N.p.o. for now. NG tube in place. -Patient had malignancy recently had partial omentectomy, resection of 10 cm mass of splenic flexure. 11/26/2020 -Patient is on IV antibiotics and WBC is trending down -Surgery recommend to be on clear liquid diet, will advance it -Postop management per surgery 11/27/2020 -Patient was seen by infectious disease yesterday and changed his IV antibiotics to Zosyn. Patient does not have any fever, WBC count trended back to normal. -General surgery is following the patient and continue with clear liquid diet, encourage ambulation -His pathology is still pending. -Discharge is per general surgery recommendation. 11/28/2020; - patient's diet advanced to full liquid diet. Pathology still pending. Patient is followed with general surgery 11/29/2020 -Patient tolerated full liquid diet -ID recommend to continue Zosyn -Disposition is per surgery recommendation 11/30/2020 -Patient is doing well, pain is better controlled. -Patient can be discharged tomorrow per surgery recommendations Final Discharge Diagnosis (Prints w/discharge instructions): perofrated abdominal viscus with sepsis Time spent for discharge: 35 mins Core Measure Documentation - Palliative Care Palliative Care/ Comfort Measures: Not Applicable - Core Measures Any of the following diagnoses?: none Exam - Physical Exam Narrative exam: Not in cardiopulmonary distress. The patient appeared well nourished and normally developed. Vital signs as documented. Head exam is unremarkable. No scleral icterus . Neck is without jugular venous distension, thyromegaly, or carotid bruits. Lungs are clear to auscultation. Cardiac exam reveals regular rate and Rhythm. Abdominal exam reveals clean dressing, appropriately tender, ostomy pink with air and stool in bag Extremities are nonedematous and both femoral and pedal pulses are normal. BEEF BREAKER: Alert and oriented 3. No focal weakness. - Constitutional Vitals: Temp Pulse Resp BP Pulse Ox 99.2 F 80 18 132/80 96 12/01/20 05:03 12/01/20 05:03 12/01/20 05:03 12/01/20 05:03 12/01/20 05:03 Plan Activity: advance as tolerated, fall precautions Diet: per dietitian instruction Special Instructions: record daily weights, record daily BP diary
[2020-12-01 08:39] VITALS: BP 139/71
[2020-12-01] MEDS ORDERED: FAMOTIDINE 20 MG TAB PO SCH (10:00)
[2020-12-01] MEDS: ENOXAPARIN 40 MG/0.4 ML INJ SUB-Q SCH (12:22)
[2020-12-01] MEDS: oxyCODONE /ACETAMINOPHEN 5-325MG TAB PO PRN (12:22)
--- NOTE | 2020-12-01 12:54 | Progress Note ---
Assessment and Plan 40 year old male s/p exlap, omentectomy, colonic anastamosis resection, and colostomy POD 7 Pt stable. Afebrile. Kunal diet. Plan: 1. Reg diet 2. dc IVF 3. completed course of abx per ID 4. IS/pulm toilet 5. OOB/ambulate 6. prn pain control 7. Ok to dc from surgery standpoint. Surgical pathology from index operation discussed with patient. Will need oncology follow up as outpt - referred to Dr. Mills. Patient given verbal dc instructions and advised to make an appointment in surgery clinic for one week follow up. He also was unable to fill percocet rx due to low to no stock at local pharmacies. Percocet voided and [place] rx provided. Thank you, please call with questions. Subjective Date of service: 12/01/20 Narrative: Pt seen and examined. Pain is well controlled. Feels comfortable with colostomy care. Afebrile. Tolerating diet. Colostomy is working well. Objective Vital Signs - 12hr 12/01/20 12/01/20 12/01/20 01:18 04:38 05:03 Temperature 98.4 F 99.2 F Pulse Rate 72 75 80 Respiratory 18 18 18 Rate Blood Pressure 132/80 Blood Pressure 138/77 132/80 [Right] O2 Sat by Pulse 97 96 96 Oximetry 12/01/20 07:55 Temperature 99.0 F Pulse Rate 75 Respiratory 16 Rate Blood Pressure 139/71 Blood Pressure [Right] O2 Sat by Pulse 94 Oximetry - General physical appearance Narrative Exam: Gen; AAox3. NAD CV: S1, S2+ Resp: even and unlabored Abd: soft, NT, ND. Dressing c/d/i. Brian drain serous. Ostomy pink with brown stool Ext: no c/c/e - Labs 11/27/20 07:10 11/27/20 07:10
== END 2020-12-01 16:40 | disposition home health service (06) | DRG 854 ==
LOC: ED 09:26 → 3B-SURG 15:19 → OBSVTOIN 15:19 → 3B-SURG 21:42
PROVIDERS: ADMIT Internal Medicine; ATTEND Internal Medicine
PROC: 0D1K0Z4 Bypass Ascending Colon to Cutaneous, Open Approach (ICD-10-PCS; principal; 2020-11-25)
PROC: 0D1E0Z4 Bypass Large Intestine to Cutaneous, Open Approach (ICD-10-PCS; 2020-11-25)
PROC: 0DBU0ZZ Excision of Omentum, Open Approach (ICD-10-PCS; 2020-11-25)
PROC: 0DJD4ZZ Inspection of Lower Intestinal Tract, Percutaneous Endoscopic Approach (ICD-10-PCS; 2020-11-25)
DX: A41.9 Sepsis, unspecified organism (principal); E44.1 Mild protein-calorie malnutrition; G89.18 Other acute postprocedural pain; D72.825 Bandemia; Z79.899 Other long term (current) drug therapy; Z85.038 Personal history of other malignant neoplasm of large intestine; Z68.29 Body mass index [BMI] 29.0-29.9, adult
CPT/HCPCS: 36415; 71045; 71275; 74177; 80048; 80053; 81001; 82140; 82550; 83036; 83690; 83735; 84100; 84484; 85007; 85025; 85379; 85610; 86850; 86900; 86901; 87040; 88305; 88307; 93005; 93970; 96365; 96375; 99406; G0378; J1170; J1200; J1335; J1650; J1885; J1956; J2250; J2405; J2543; J2704; J2710; J3490; J7030; J7042; J7120; Q9967